=== PATIENT | male | born 1935 | race Caucasian/White ===

== ENCOUNTER 2022-06-25 09:08 | Emergency (ER) | payer MEDICARE, OTHER ==
--- NOTE | 2022-06-25 09:52 | XRAY Report ---
PROCEDURE: Chest 2 View X-Ray INDICATIONS: cough TECHNIQUE: 2 view(s) of the chest. COMPARISON: None. FINDINGS: Surgical changes and devices: Dual-lead cardiac pacer is unremarkable. Lungs and pleura: Lung volumes are low. There is mild atelectasis at the bilateral lung bases. No fo flavia airspace opacities. No pleural effusion or pneumothorax. Mediastinum: Mediastinal contours are normal. Heart size is normal. Bones and chest wall: No suspicious bony abnormalities. Soft tissues appear unremarkable. IMPRESSION: Low lung volumes and basilar atelectasis. Reviewed by: Angie Sheikh MD on 06/25/2022 9:51 AM PDT Approved by: Angie Sheikh MD on 06/25/2022 9:51 AM PDT Station ID: [id number]
[2022-06-25 11:10] VITALS: BP 136/93
--- NOTE | 2022-06-25 12:15 | ED Physician Documentation ---
PD HPI URI - Stated complaint Stated Complaint: COUGH - Chief complaint Chief Complaint: Resp - History obtained from History obtained from: Patient - History of Present Illness Timing - onset: How many days ago (7) Timing duration: Days (7) Timing details: Gradual onset Pain level max: 1 Pain level now: 1 Associated symptoms: Nasal congestion, Rhinorrhea, Productive cough. No: Fever, Chills, Sinus pain, Chest pain, Dyspnea, NVD Contributing factors: Travel Improves by: Rest Worsened by: Activity, Breathing - Additional information Additional information: Patient is an 86-year-old male who has been coughing for the past 7 days. Increasing cough last night and today. No fevers. No chills. Has had nasal congestion and rhinorrhea. The cough can be dry, but is occasionally productive of green sputum. No lung history. He has had his COVID vaccinations. Recently traveled to [place]. Review of Systems Constitutional: denies: Fever, Chills GI: denies: Vomiting, Constipation, Diarrhea Skin: denies: Rash Musculoskeletal: denies: Neck pain Neurologic: denies: Headache PD PAST MEDICAL HISTORY - Past Medical History Past Medical History: Yes Cardiovascular: Hypertension - Present Medications Home Medications: Ambulatory Orders Medication Instructions Recorded Confirmed Benzonatate [Tessalon] 200 mg PO TID PRN #30 cap 06/25/22 - Allergies Allergies/Adverse Reactions: Allergies Allergy/AdvReac Type Severity Reaction Status Date / Time No Known Drug Allergies Allergy Verified 06/25/22 09:18 - Living Situation Living Situation: reports: With family Living Arrangement: reports: At home - Social History Does the pt smoke?: No PD ED PE NORMAL - Vitals Vital signs reviewed: Yes - General General: Alert and oriented X 3, No acute distress - HEENT HEENT: PERRL, Ears normal, Moist mucous membranes, Pharynx benign - Neck Neck: Supple, no meningeal sign - Cardiac Cardiac: RRR - Respiratory Respiratory: No respiratory distress, Other (Mild rhonchi bilaterally that clear with coughing) - Abdomen Abdomen: Soft, Non tender, Non distended - Derm Derm: Warm and dry - Extremities Extremities: No edema - Neuro Neuro: Alert and oriented X 3 - Psych Psych: Normal mood, Normal affect Results - Vitals Vitals: Vital Signs - 24 hr 06/25/22 06/25/22 09:14 11:09 Temperature 36.2 C L Heart Rate 66 58 L Respiratory 17 22 Rate Blood Pressure 148/84 H 136/93 H O2 Saturation 93 92 Oxygen O2 Source Room air - Labs Labs: Laboratory Tests 06/25/22 09:20 SARS-CoV-2 (PCR) DETECTED A - Rads (name of study) Chest x-ray Radiology: Final report received, EMP read contemporaneously, See rad report PD MEDICAL DECISION MAKING - ED course Complexity details: reviewed results, re-evaluated patient, considered differential, d/w patient, d/w family ED course: 86-year-old male, well-appearing, nontoxic. Afebrile. No hypoxia. No respiratory distress. Chest x-ray does not show any acute pneumonia. COVID test is positive. We will continue supportive care at home and have him follow- up with his PCP for further care. Patient is not a candidate for antiviral medication as his length of illness is greater than 5 days. Patient counseled regarding signs and symptoms for which I believe and urgent re-evaluation would be necessary. Patient with good understanding of and agreement to plan and is comfortable going home at this time This document was made in part using voice recognition software. While efforts are made to proofread this document, sound alike and grammatical errors may occur. Departure - Departure Disposition: 01 Home, Self Care Clinical Impression: COVID Condition: Good Instructions: ED Viral Syndrome Follow-Up: [facility] [place] [Provider Group] [facility] [place] [Provider Group] Prescriptions: Benzonatate [Tessalon] 200 mg PO TID PRN #30 cap PRN Reason: Cough Comments: You have tested positive for COVID today. Please follow-up with your doctor as needed for further care. Return if you worsen. Your chest x-ray does not show any pneumonia. Your prescriptions were sent to [facility] in [place]. Isolation precautions for COVID Day 0 is your first day of symptoms or a positive viral test. Day 1 is the first full day after your symptoms developed or your test specimen was collected. If you have COVID-19 or have symptoms, isolate for at least 5 days. IF YOU: Tested positive for COVID-19 or have symptoms, regardless of vaccination status Stay home for at least 5 days Stay home for 5 days and isolate from others in your home. Wear a well-fitting mask if you must be around others in your home. Do not travel. Ending isolation if you had symptoms End isolation after 5 full days if you are fever-free for 24 hours (without the use of fever-reducing medication) and your symptoms are improving. Ending isolation if you did NOT have symptoms End isolation after at least 5 full days after your positive test. If you got very sick from COVID-19 or have a weakened immune system You should isolate for at least 10 days. Consult your doctor before ending isolation. Take precautions until day 10 Wear a well-fitting mask Wear a well-fitting mask for 10 full days any time you are around others inside your home or in public. Do not go to places where you are unable to wear a mask. Do not travel Do not travel until a full 10 days after your symptoms started or the date your positive test was taken if you had no symptoms. Avoid being around people who are more likely to get very sick from COVID-19.
== END 2022-06-25 12:41 | disposition home or self-care (01) ==
LOC: ED 09:08
DX: U07.1 COVID-19 (principal)
CPT/HCPCS: 99284

== ENCOUNTER 2022-08-31 08:00 | Outpatient (CLI) | payer MEDICARE, OTHER | END 2022-08-31 23:59 | disposition home or self-care (01) | LOC: LAB.S 08:00 | PROVIDERS: ATTEND Emergency Medicine | DX: M79.672 Pain in left foot (principal) | CPT/HCPCS: 82962 ==

== ENCOUNTER 2022-08-31 16:10 | Outpatient (CLI) | payer MEDICARE, OTHER ==
--- NOTE | 2022-08-31 18:41 | XRAY Report ---
PROCEDURE: Foot 3 View LT INDICATIONS: LEFT HEEL PAIN TECHNIQUE: 3 views of the foot were acquired. COMPARISON: None FINDINGS: Bones: No fractures or dislocations. No suspicious bony lesions. Age-appropriate degenerative renteria ges are seen. A plantar calcaneal spur is incidentally noted. Toe alignment abnormalities can be s een. 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 Soft tissues: No tibiotalar joint effusion. Achilles tendon appears normal. Calcification can be s een of the distal arteries, which is commonly observed in patients with long-standing diabetes. Pleas e correlate with known patient history. IMPRESSION: A plantar calcaneal spur is seen. No additional significant abnormality can be seen involving the li l. Prior postoperative change can be seen with amputation of the distal first and second toes. If there is strong clinical concern for developing osteomyelitis in this patient with this given hist ory, then please consider a dedicated MRI (without and with contrast) for further evaluation (assumin g that there is no contraindication). Reviewed by: Juancho Anand MD on 08/31/2022 5:39 PM [facility] Approved by: Juancho Anand MD on 08/31/2022 5:39 PM [facility] Station ID: [id number]
== END 2022-08-31 16:11 | disposition home or self-care (01) ==
LOC: DI.S 16:10
PROVIDERS: ATTEND Emergency Medicine
DX: M77.32 Calcaneal spur, left foot (principal); Z89.412 Acquired absence of left great toe; Z89.422 Acquired absence of other left toe(s)

== ENCOUNTER 2022-10-18 13:18 | Outpatient (CLI) | payer MEDICARE, OTHER ==
--- NOTE | 2022-10-18 20:01 | XRAY Report ---
PROCEDURE: Chest 2 View X-Ray INDICATIONS: ACUTE COUGH TECHNIQUE: 2 views of the chest were acquired. COMPARISON: Chest radiograph 06/25/2022 FINDINGS: Surgical changes and devices: Left chest pacemaker. Lungs and pleura: Elevation of the right hemidiaphragm likely present. Small right pleural effusion d emonstrated. Mild bibasilar opacities present. No pneumothorax. Mediastinum: Cardiac silhouette is at the upper limits of normal in size. Mediastinal and hilar conto urs are similar to before. Bones and chest wall: No suspicious bony abnormalities. Soft tissues appear unremarkable. IMPRESSION: 1. Small nonspecific right pleural effusion. 2. Mild bibasilar opacities are present, nonspecific. These could represent atelectasis but aspiratio n, pneumonia, or edema are difficult to exclude. Reviewed by: Aldair Zuluaga MD on 10/18/2022 7:59 PM PST Approved by: Aldair Zuluaga MD on 10/18/2022 7:59 PM PST Station ID: [id number]
== END 2022-10-18 13:19 | disposition home or self-care (01) ==
LOC: DI.S 13:18
PROVIDERS: ATTEND Registered Nurse
DX: J90 Pleural effusion, not elsewhere classified (principal); R91.8 Other nonspecific abnormal finding of lung field

== ENCOUNTER 2022-10-24 08:00 | Outpatient (CLI) | payer MEDICARE, OTHER ==
--- NOTE | 2022-10-25 10:44 | XRAY Report ---
PROCEDURE: Chest 2 View X-Ray INDICATIONS: ACUTE COUGH TECHNIQUE: 2 views of the chest were acquired. COMPARISON: 10/18/2022 and 06/25/2022 FINDINGS: Surgical changes and devices: Left chest wall pacemaker leads are in the region of right atrium and r ight ventricle. Lungs and pleura: No pleural effusions or pneumothorax. Lungs are clear. Mild elevation of right h emidiaphragm is again seen unchanged from prior study. Mediastinum: Mediastinal contours are normal. Heart size is enlarged. Bones and chest wall: No suspicious bony abnormalities. Soft tissues appear unremarkable. IMPRESSION: No acute cardiopulmonary pathology. Reviewed by: Tono Wilkes MD on 10/25/2022 10:43 AM [facility] Approved by: Tono Wilkes MD on 10/25/2022 10:43 AM [facility] Station ID: [id number]
== END 2022-10-24 23:59 | disposition home or self-care (01) ==
LOC: DI.S 08:00
PROVIDERS: ATTEND Registered Nurse
DX: R05.1 Acute cough (principal)

== ENCOUNTER 2022-12-23 12:37 | Outpatient (CLI) | payer MEDICARE, OTHER ==
--- NOTE | 2022-12-23 16:37 | Ultrasound Report ---
PROCEDURE: Ankle Brachial Index INDICATIONS: INCREASED CAPILLARY FILLING TIME TECHNIQUE: Ankle-brachial indices were obtained bilaterally and recorded. COMPARISONS: None. FINDINGS: Right ankle brachial index (MEREDITH): 1.0 Left ankle brachial index (MEREDITH): 0.9 Healing potential: Ankle pressures >55 mm Hg in non-diabetics and >80 mm Hg in diabetics are likely to achieve primary h ealing of ischemic foot ulcers. Toe pressures >30 mm Hg are likely to achieve primary healing of ischemic foot ulcers, toe or transme tatarsal amputations. IMPRESSION: Normal ankle-brachial indices bilaterally. Reviewed by: Leonel Villalpando MD on 12/23/2022 4:36 PM PST Approved by: Leonel Villalpando MD on 12/23/2022 4:36 PM PST Station ID: [id number]
== END 2022-12-23 12:38 | disposition home or self-care (01) ==
LOC: DI 12:37
PROVIDERS: ATTEND Nurse Practitioner Family
DX: I87.2 Venous insufficiency (chronic) (peripheral) (principal)
CPT/HCPCS: 93922

== ENCOUNTER 2023-01-15 05:34 | Outpatient (CLI) | payer MEDICARE, OTHER | END 2023-01-15 23:59 | disposition critical access hospital (66) | LOC: EMS 05:34 | PROVIDERS: ATTEND Nurse Practitioner Family | DX: R53.1 Weakness (principal); R05.9 Cough, unspecified; R41.0 Disorientation, unspecified | CPT/HCPCS: A0425; A0429 ==

== ENCOUNTER 2023-01-15 06:00 | Inpatient (IN) | payer MEDICARE, OTHER ==
--- OUTSIDE RECORDS SUMMARY | 2023-01-15 06:09 | EXTERNAL MEDICAL SUMMARY RPT | Continuity of Care Document ---
:1935 Author Organization [facility] Address [address] [place] [address] Phone Care Team Providers Name Role Phone Unavailable Unavailable Unavailable William Lance,Yasmeen, Contreras Unavailable Unavailable Strem[place] Patient Registrar, Amaya Unavailable Unav ailable Del Valle Patient Registrar, Dinora Unavailable Unavai lable Strempel Patient Registrar, Amaya Unavailable Unav ailable Allergies No information. Encounters No information. Functional Status No information. Immunizations No information. Medications date description facility 2022-10-18 00:00 mupirocin Walk-In Clinic [facility] [place] 2022-10-18 00:00 mupirocin Walk-In Clinic [facility] [place] 2022-10-22 00:00 mupirocin Walk-In Clinic [facility] [place] 2022-10-24 00:00 mupirocin Walk-In Clinic [facility] [place] 2022-10-30 00:00 mupirocin Walk-In Clinic [facility] [place] 2022-10-24 00:00 codeine-guaifenesin Walk-In Clinic [facility] [place] 2022-10-18 00:00 doxycycline hyclate Walk-In [facility] [place] 2022-10-18 00:00 doxycycline hyclate Walk-In [facility] [place] 2022-10-18 00:00 doxycycline hyclate Walk[facility]In [facility] [place] 2022-10-18 00:00 doxycycline hyclate Walk[facility]In [facility] [place] 2022-10-24 00:00 doxycycline hyclate Walk[facility]In [facility] [place] 2022-10-18 00:00 acetaminophen-codeine Walk-In Clinic [facility] [place] 2022-10-18 00:00 acetaminophen-codeine [facility] [place] 2022-10-22 00:00 acetaminophen-codeine Walk-In Clinic [facility] [place] 2022-10-24 00:00 acetaminophen-codeine Walk[facility]In [facility] [place] 2022-10-30 00:00 acetaminophen-codeine Walk[facility]In [facility] [place] 2022-10-18 00:00 levothyroxine [facility] [place] 2022-10-18 00:00 levothyroxine [facility] [place] 2022-10-22 00:00 levothyroxine [facility] [place] 2022-10-24 00:00 levothyroxine [facility] [place] 2022-10-30 00:00 levothyroxine [facility] [place] 2022-10-18 00:00 doxycycline hyclate Walk-In [facility] [place] 2022-10-18 00:00 doxycycline hyclate Walk[facility]In [facility] [place] 2022-10-18 00:00 doxycycline hyclate Walk[facility]In [facility] [place] 2022-10-18 00:00 doxycycline hyclate Walk[facility]In [facility] [place] 2022-10-24 00:00 doxycycline hyclate Walk[facility]In [facility] [place] 2022-10-18 00:00 mupirocin [facility] [place] 2022-10-18 00:00 mupirocin [facility] [place] 2022-10-22 00:00 mupirocin [facility] [place] 2022-10-24 00:00 mupirocin [facility] [place] 2022-10-30 00:00 mupirocin [facility] [place] 2022-10-18 00:00 naproxen sodium [facility] [place] 2022-10-18 00:00 naproxen sodium [facility] [place] 2022-10-22 00:00 naproxen sodium [facility] [place] 2022-10-24 00:00 naproxen sodium [facility] [place] 2022-10-30 00:00 naproxen sodium [facility] [place] 2022-10-18 00:00 levothyroxine Walk[facility] [place] 2022-10-18 00:00 levothyroxine [facility] [place] 2022-10-22 00:00 levothyroxine [facility] [place] 2022-10-24 00:00 levothyroxine [facility] [place] 2022-10-30 00:00 levothyroxine [facility] [place] 2022-10-24 00:00 codeine-guaifenesin Walk[facility] [place] 2022-10-18 00:00 methocarbamol Walk[facility] [place] 2022-10-18 00:00 methocarbamol [facility] [place] 2022-10-22 00:00 methocarbamol [facility] [place] 2022-10-24 00:00 methocarbamol [facility] [place] 2022-10-30 00:00 methocarbamol [facility] [place] 2022-10-18 00:00 tamsulosin Walk[facility] [place] 2022-10-18 00:00 tamsulosin [facility] [place] 2022-10-22 00:00 tamsulosin [facility] [place] 2022-10-24 00:00 tamsulosin [facility] [place] 2022-10-30 00:00 tamsulosin [facility] [place] 2022-10-18 00:00 oxybutynin chloride Walk-In Clinic [facility] [place] 2022-10-18 00:00 oxybutynin chloride Walk[facility]In [facility] [place] 2022-10-22 00:00 oxybutynin chloride Walk[facility]In [facility] [place] 2022-10-24 00:00 oxybutynin chloride Walk[facility]In [facility] [place] 2022-10-30 00:00 oxybutynin chloride Walk[facility]In [facility] [place] 2022-10-18 00:00 doxycycline hyclate Walk[facility]In [facility] [place] 2022-10-18 00:00 doxycycline hyclate Walk[facility]In [facility] [place] 2022-10-18 00:00 doxycycline hyclate Walk[facility]In [facility] [place] 2022-10-18 00:00 doxycycline hyclate Walk[facility]In [facility] [place] 2022-10-24 00:00 doxycycline hyclate Walk[facility]In [facility] [place] 2022-10-18 00:00 benzonatate Walk[facility] [place] 2022-10-18 00:00 benzonatate [facility] [place] 2022-10-18 00:00 benzonatate [facility] [place] 2022-10-18 00:00 benzonatate [facility] [place] 2022-10-24 00:00 benzonatate [facility] [place] 2022-10-18 00:00 methocarbamol Walk[facility] [place] 2022-10-18 00:00 methocarbamol [facility] [place] 2022-10-22 00:00 methocarbamol [facility] [place] 2022-10-24 00:00 methocarbamol [facility] [place] 2022-10-30 00:00 methocarbamol [facility] [place] 2022-10-18 00:00 trazodone [facility] [place] 2022-10-18 00:00 trazodone [facility] [place] 2022-10-22 00:00 trazodone [facility] [place] 2022-10-24 00:00 trazodone [facility] [place] 2022-10-30 00:00 trazodone [facility] [place] 2022-10-18 00:00 warfarin Walk[facility] [place] 2022-10-18 00:00 warfarin [facility] [place] 2022-10-22 00:00 warfarin [facility] [place] 2022-10-24 00:00 warfarin [facility] [place] 2022-10-30 00:00 warfarin [facility] [place] 2022-10-18 00:00 benzonatate [facility] [place] 2022-10-18 00:00 benzonatate [facility] [place] 2022-10-18 00:00 benzonatate [facility] [place] 2022-10-18 00:00 benzonatate [facility] [place] 2022-10-24 00:00 benzonatate [facility] [place] 2022-10-18 00:00 levothyroxine Walk[facility] [place] 2022-10-18 00:00 levothyroxine [facility] [place] 2022-10-22 00:00 levothyroxine [facility] [place] 2022-10-24 00:00 levothyroxine [facility] [place] 2022-10-30 00:00 levothyroxine Walk[facility]In [facility] [place] 2022-10-18 00:00 mupirocin Walk[facility] [place] 2022-10-18 00:00 mupirocin [facility] [place] 2022-10-22 00:00 mupirocin [facility] [place] 2022-10-24 00:00 mupirocin [facility] [place] 2022-10-30 00:00 mupirocin [facility] [place] 2022-10-18 00:00 methocarbamol [facility] [place] 2022-10-18 00:00 methocarbamol [facility] [place] 2022-10-22 00:00 methocarbamol Walk[facility] [place] 2022-10-24 00:00 methocarbamol Walk[facility] [place] 2022-10-30 00:00 methocarbamol Walk[facility] [place] 2022-10-18 00:00 metoprolol tartrate Walk[facility]In [facility] [place] 2022-10-18 00:00 metoprolol tartrate Walk[facility]In [facility] [place] 2022-10-22 00:00 metoprolol tartrate Walk[facility] [place] 2022-10-24 00:00 metoprolol tartrate Walk[facility] [place] 2022-10-30 00:00 metoprolol tartrate Walk[facility] [place] 2022-10-18 00:00 acetaminophen-codeine Walk[facility]In [facility] [place] 2022-10-18 00:00 acetaminophen-codeine Walk[facility] [place] 2022-10-22 00:00 acetaminophen-codeine Walk[facility] [place] 2022-10-24 00:00 acetaminophen-codeine Walk[facility] [place] 2022-10-30 00:00 acetaminophen-codeine Walk[facility] [place] 2022-10-18 00:00 atorvastatin [facility] [place] 2022-10-18 00:00 atorvastatin [facility] [place] 2022-10-22 00:00 atorvastatin [facility] [place] 2022-10-24 00:00 atorvastatin [facility] [place] 2022-10-30 00:00 atorvastatin [facility] [place] 2022-10-18 00:00 benzonatate Walk[facility] [place] 2022-10-18 00:00 benzonatate [facility] [place] 2022-10-18 00:00 benzonatate [facility] [place] 2022-10-18 00:00 benzonatate [facility] [place] 2022-10-24 00:00 benzonatate [facility] [place] 2022-10-24 00:00 codeine-guaifenesin Walk[facility]In [facility] [place] 2022-10-18 00:00 albuterol sulfate [facility] [place] 2022-10-18 00:00 albuterol sulfate [facility] [place] 2022-10-18 00:00 albuterol sulfate [facility] [place] 2022-10-18 00:00 albuterol sulfate [facility] [place] 2022-10-18 00:00 albuterol sulfate [facility] [place] 2022-10-18 00:00 albuterol sulfate [facility] [place] 2022-10-18 00:00 albuterol sulfate [facility] [place] 2022-10-18 00:00 albuterol sulfate [facility] [place] 2022-10-18 00:00 atorvastatin [facility] [place] 2022-10-18 00:00 atorvastatin [facility] [place] 2022-10-22 00:00 atorvastatin [facility] [place] 2022-10-24 00:00 atorvastatin [facility] [place] 2022-10-30 00:00 atorvastatin [facility] [place] 2022-10-18 00:00 oxybutynin chloride Walk[facility]In [facility] [place] 2022-10-18 00:00 oxybutynin chloride Walk[facility] [place] 2022-10-22 00:00 oxybutynin chloride Walk[facility] [place] 2022-10-24 00:00 oxybutynin chloride Walk[facility] [place] 2022-10-30 00:00 oxybutynin chloride [facility] [place] 2022-10-18 00:00 warfarin [facility] [place] 2022-10-18 00:00 warfarin [facility] [place] 2022-10-22 00:00 warfarin [facility] [place] 2022-10-24 00:00 warfarin [facility] [place] 2022-10-30 00:00 warfarin [facility] [place] 2022-10-18 00:00 trazodone [facility] [place] 2022-10-18 00:00 trazodone [facility] [place] 2022-10-22 00:00 trazodone [facility] [place] 2022-10-24 00:00 trazodone [facility] [place] 2022-10-30 00:00 trazodone [facility] [place] 2022-10-18 00:00 oxybutynin chloride Walk[facility] [place] 2022-10-18 00:00 oxybutynin chloride Walk[facility] [place] 2022-10-22 00:00 oxybutynin chloride Walk[facility] [place] 2022-10-24 00:00 oxybutynin chloride Walk[facility] [place] 2022-10-30 00:00 oxybutynin chloride Walk[facility] [place] 2022-10-18 00:00 tamsulosin Walk[facility]In [facility] [place] 2022-10-18 00:00 tamsulosin Walk[facility]In [facility] [place] 2022-10-22 00:00 tamsulosin Walk[facility]In [facility] [place] 2022-10-24 00:00 tamsulosin Walk[facility]In [facility] [place] 2022-10-30 00:00 tamsulosin Walk[facility]In [facility] [place] 2022-10-18 00:00 metoprolol tartrate Walk[facility] [place] 2022-10-18 00:00 metoprolol tartrate Walk[facility] [place] 2022-10-22 00:00 metoprolol tartrate Walk[facility] [place] 2022-10-24 00:00 metoprolol tartrate Walk[facility] [place] 2022-10-30 00:00 metoprolol tartrate Walk[facility] [place] 2022-10-18 00:00 trazodone Walk[facility]In [facility] [place] 2022-10-18 00:00 trazodone Walk[facility]In [facility] [place] 2022-10-22 00:00 trazodone Walk[facility]In [facility] [place] 2022-10-24 00:00 trazodone Walk[facility]In [facility] [place] 2022-10-30 00:00 trazodone [facility] [place] 2022-10-18 00:00 atorvastatin [facility] [place] 2022-10-18 00:00 atorvastatin [facility] [place] 2022-10-22 00:00 atorvastatin [facility] [place] 2022-10-24 00:00 atorvastatin [facility] [place] 2022-10-30 00:00 atorvastatin [facility] [place] 2022-10-18 00:00 atorvastatin [facility] [place] 2022-10-18 00:00 atorvastatin [facility] [place] 2022-10-22 00:00 atorvastatin [facility] [place] 2022-10-24 00:00 atorvastatin [facility] [place] 2022-10-30 00:00 atorvastatin [facility] [place] 2022-10-18 00:00 tamsulosin [facility] [place] 2022-10-18 00:00 tamsulosin [facility] [place] 2022-10-22 00:00 tamsulosin [facility] [place] 2022-10-24 00:00 tamsulosin [facility] [place] 2022-10-30 00:00 tamsulosin [facility] [place] 2022-10-18 00:00 acetaminophen-codeine [facility] [place] 2022-10-18 00:00 acetaminophen-codeine [facility] [place] 2022-10-22 00:00 acetaminophen-codeine [facility] [place] 2022-10-24 00:00 acetaminophen-codeine [facility] [place] 2022-10-30 00:00 acetaminophen-codeine [facility] [place] 2022-10-18 00:00 naproxen sodium [facility] [place] 2022-10-18 00:00 naproxen sodium [facility] [place] 2022-10-22 00:00 naproxen sodium [facility] [place] 2022-10-24 00:00 naproxen sodium [facility] [place] 2022-10-30 00:00 naproxen sodium [facility] [place] 2022-10-18 00:00 naproxen sodium [facility] [place] 2022-10-18 00:00 naproxen sodium [facility] [place] 2022-10-22 00:00 naproxen sodium [facility] [place] 2022-10-24 00:00 naproxen sodium [facility] [place] 2022-10-30 00:00 naproxen sodium [facility] [place] 2022-10-18 00:00 albuterol sulfate [facility] [place] 2022-10-18 00:00 albuterol sulfate [facility] [place] 2022-10-18 00:00 albuterol sulfate [facility] [place] 2022-10-18 00:00 albuterol sulfate [facility] [place] 2022-10-18 00:00 benzonatate [facility] [place] 2022-10-18 00:00 benzonatate [facility] [place] 2022-10-18 00:00 benzonatate [facility] [place] 2022-10-18 00:00 benzonatate [facility] [place] 2022-10-24 00:00 benzonatate [facility] [place] 2022-10-18 00:00 naproxen sodium [facility] [place] 2022-10-18 00:00 naproxen sodium [facility] [place] 2022-10-22 00:00 naproxen sodium [facility] [place] 2022-10-24 00:00 naproxen sodium [facility] [place] 2022-10-30 00:00 naproxen sodium [facility] [place] 2022-10-18 00:00 doxycycline hyclate Walk[facility]In [facility] [place] 2022-10-18 00:00 doxycycline hyclate Walk[facility]In [facility] [place] 2022-10-18 00:00 doxycycline hyclate Walk[facility] [place] 2022-10-18 00:00 doxycycline hyclate Walk[facility] [place] 2022-10-24 00:00 doxycycline hyclate Walk[facility] [place] 2022-10-18 00:00 albuterol sulfate [facility] [place] 2022-10-18 00:00 albuterol sulfate [facility] [place] 2022-10-18 00:00 albuterol sulfate [facility] [place] 2022-10-18 00:00 albuterol sulfate [facility] [place] 2022-10-18 00:00 methocarbamol [facility] [place] 2022-10-18 00:00 methocarbamol [facility] [place] 2022-10-22 00:00 methocarbamol [facility] [place] 2022-10-24 00:00 methocarbamol [facility] [place] 2022-10-30 00:00 methocarbamol [facility] [place] 2022-10-18 00:00 metoprolol tartrate Walk[facility] [place] 2022-10-18 00:00 metoprolol tartrate Walk[facility] [place] 2022-10-22 00:00 metoprolol tartrate [facility] [place] 2022-10-24 00:00 metoprolol tartrate [facility] [place] 2022-10-30 00:00 metoprolol tartrate Walk[facility] [facility] [place] 2022-10-18 00:00 [facility]farin [facility] [place] 2022-10-18 00:00 warfarin [facility] [place] 2022-10-22 00:00 warfarin [facility] [place] 2022-10-24 00:00 warfarin [facility] [place] 2022-10-30 00:00 warfarin [facility] [place] 2022-10-18 00:00 warfarin [facility] [place] 2022-10-18 00:00 warfarin [facility] [place] 2022-10-22 00:00 warfarin [facility] [place] 2022-10-24 00:00 warfarin [facility] [place] 2022-10-30 00:00 warfarin [facility] [place] 2022-10-18 00:00 trazodone [facility] [place] 2022-10-18 00:00 trazodone [facility] [place] 2022-10-22 00:00 trazodone [facility] [place] 2022-10-24 00:00 trazodone [facility] [place] 2022-10-30 00:00 trazodone [facility] [place] 2022-10-18 00:00 oxybutynin chloride [facility] [place] 2022-10-18 00:00 oxybutynin chloride [facility] [place] 2022-10-22 00:00 oxybutynin chloride [facility] [place] 2022-10-24 00:00 oxybutynin chloride [facility] [place] 2022-10-30 00:00 oxybutynin chloride [facility] [place] 2022-10-18 00:00 tamsulosin [facility] [place] 2022-10-18 00:00 tamsulosin [facility] [place] 2022-10-22 00:00 tamsulosin [facility] [place] 2022-10-24 00:00 tamsulosin [facility] [place] 2022-10-30 00:00 tamsulosin [facility] [place] 2022-10-18 00:00 metoprolol tartrate [facility] [place] 2022-10-18 00:00 metoprolol tartrate [facility] [place] 2022-10-22 00:00 metoprolol tartrate [facility] [place] 2022-10-24 00:00 metoprolol tartrate [facility] [place] 2022-10-30 00:00 metoprolol tartrate [facility] [place] 2022-10-18 00:00 mupirocin [facility] [place] 2022-10-18 00:00 mupirocin [facility] [place] 2022-10-22 00:00 mupirocin [facility] [place] 2022-10-24 00:00 mupirocin [facility] [place] 2022-10-30 00:00 mupirocin [facility] [place] 2022-10-18 00:00 levothyroxine [facility] [place] 2022-10-18 00:00 levothyroxine [facility] [place] 2022-10-22 00:00 levothyroxine [facility] [place] 2022-10-24 00:00 levothyroxine [facility] [place] 2022-10-30 00:00 levothyroxine [facility] [place] 2022-10-18 00:00 acetaminophen-codeine [facility] [place] 2022-10-18 00:00 acetaminophen-codeine [facility] [place] 2022-10-22 00:00 [facility] [place] 2022-10-24 00:00 [facility]amin[facility]codeine [facility] [place] 2022-10-30 00:00 acetaminophen-codeine [facility] [place] 2022-10-24 00:00 codeine-guaifenesin [facility] [place] Problems date description facility 2022-10-18 00:00 Community acquired pneumonia [facility] 2022-10-18 00:00 Community acquired pneumonia [facility] 2022-10-18 00:00 Community acquired pneumonia [facility] 2022-10-18 00:00 Community acquired pneumonia [facility] 2022-10-18 00:00 Pneumonia, organism unspecified [facility] 2022-10-18 00:00 Pneumonia, organism unspecified [facility] 2022-10-18 00:00 Pneumonia, organism unspecified [facility] 2022-10-18 00:00 Pneumonia, organism unspecified [facility] 2022-10-18 00:00 Cough [facility] 2022-10-18 00:00 Cough [facility] 2022-10-18 00:00 Cough [facility] 2022-10-18 00:00 Cough [facility] 2022-10-18 00:00 Pneumonia, unspecified organism [facility] 2022-10-18 00:00 Pneumonia, unspecified organism [facility] 2022-10-18 00:00 Pneumonia, unspecified organism [facility] 2022-10-18 00:00 Pneumonia, unspecified organism [facility] 2022-10-18 00:00 Acute cough [facility] 2022-10-18 00:00 Acute cough [facility] 2022-10-18 00:00 Acute cough [facility] 2022-10-18 00:00 Acute cough [facility] 2022-10-18 00:00 Cardiac pacemaker in situ [facility] 2022-10-18 00:00 Cardiac pacemaker in situ [facility] 2022-10-18 00:00 Cardiac pacemaker in situ [facility] 2022-10-18 00:00 Presence of cardiac pacemaker [facility] 2022-10-18 00:00 Presence of cardiac pacemaker [facility] 2022-10-18 00:00 Presence of cardiac pacemaker [facility] Procedures date description facility 2022-10-18 00:00 Visit Code Hold [facility] [place] 2022-10-18 00:00 Visit Code Hold [facility] [place] 2022-10-18 00:00 Visit Code Hold [facility] [place] 2022-10-18 00:00 Visit Code Hold [facility] [place] 2022-10-24 00:00 Visit Code Hold [facility] [place] Results/Labs No information. Social History date description facility 2022-10-24 00:00 Never smoker [facility] [place] Vital Signs date measurement value units 2022-10-18 00:00 BMI 35.46 kg/m2 2022-10-18 00:00 BP_diastolic 79 mmHg 2022-10-18 00:00 BP_systolic 140 mmHg 2022-10-18 00:00 heart_rate 64 /min 2022-10-18 00:00 height_metric 185.42 cm 2022-10-18 00:00 height_standard 73 in 2022-10-18 00:00 respiration_rate 16 /min 2022-10-18 00:00 temperature_metric 36.33 C 2022-10-18 00:00 temperature_standard 97.4 F 2022-10-18 00:00 weight_metric 121.47 kg 2022-10-18 00:00 weight_standard 267.8 lb 2022-10-24 00:00 BMI 35.35 kg/m2 2022-10-24 00:00 BP_diastolic 77 mmHg 2022-10-24 00:00 BP_systolic 141 mmHg 2022-10-24 00:00 heart_rate 62 /min 2022-10-24 00:00 height_metric 185.42 cm 2022-10-24 00:00 height_standard 73 in 2022-10-24 00:00 respiration_rate 18 /min 2022-10-24 00:00 weight_metric 121.11 kg 2022-10-24 00:00 weight_standard 267 lb
[2023-01-15] MEDS ORDERED: ACETAMINOPHEN 325 MG TABLET PO STA (06:17)
[2023-01-15 06:26] LABS: BASOPHILS % (AUTO) 0.2 %; EOSINOPHILS % (AUTO) 0.1 %; HCT - HEMATOCRIT 43.2 % (42.0-52.0); HGB - HEMOGLOBIN 14.3 g/dL (14.0-18.0); LYMPHOCYTES # (AUTO) 0.7 10^3/uL (1.5-3.5); LYMPHOCYTES % (AUTO) 4.6 %; MEAN CORPUSCULAR HEMOGLOBIN 34.1 pg (27.0-31.0); MEAN CORPUSCULAR HGB CONC 33.1 g/dL (32.0-36.0); MEAN CORPUSCULAR VOLUME 103.1 fL (80.0-94.0); MONOCYTES # (AUTO) 1.4 10^3/uL (0.0-1.0); NEUTROPHILS % (AUTO) 84.6 %; PLT - PLATELET COUNT 166 10^3/uL (130-450); RED BLOOD COUNT 4.19 10^6/uL (4.70-6.10); WHITE BLOOD COUNT 14.2 x10^3/uL (4.8-10.8)
[2023-01-15 06:38] LABS: ALBUMIN 3.6 g/dL (3.2-5.5); BILIRUBIN,TOTAL 2.3 mg/dL (0.2-1.0); CALCIUM 8.9 mg/dL (8.5-10.3); POTASSIUM 3.9 mmol/L (3.5-5.0); TOTAL PROTEIN 7.2 g/dL (6.7-8.2)
[2023-01-15 06:50] LABS: INR 2.4 (0.8-1.2); PT - PROTHROMBIN TIME 25.7 secs (9.9-12.6)
--- NOTE | 2023-01-15 07:10 | ED Physician Documentation ---
History of Present Illness - Stated complaint Stated Complaint: WEAKNESS - Chief complaint Chief Complaint: Resp - History obtained from History obtained from: Patient, EMS - Additonal information Additional information: 87-year-old gentleman with history of DVT on warfarin, bowel resection for diverticulitis, pacemaker, and pneumonia presents feeling progressively weak for the last 4 days. 4 days ago he was coming back from [place] and felt disoriented, now has a productive cough and chills with shortness of breath and was very weak overnight kind of crumpling out of bed and laying on the floor. He is 100% sure he did not hit his head. He has no pain anywhere. PD PAST MEDICAL HISTORY - Past Medical History Past Medical History: Yes Cardiovascular: Hypertension, High cholesterol, Deep vein thrombosis Respiratory: Pneumonia Endocrine/Autoimmune: HyPOthyroidism : Other Other Past Medical History: Overreactive Bladder - Past Surgical History Past Surgical History: Yes Cardiovascular: Pacemaker - Present Medications Home Medications: Ambulatory Orders Medication Instructions Recorded Confirmed Atorvastatin Calcium 40 mg PO DAILY 01/15/23 01/15/23 Levothyroxine [Synthroid] 25 mcg PO QDAC 01/15/23 01/15/23 Metoprolol Succinate [Toprol Xl] 25 mg PO DAILY 01/15/23 01/15/23 Oxybutynin Chloride [Ditropan Xl] 5 mg PO DAILY 01/15/23 01/15/23 Warfarin [Coumadin] 2.5 mg PO DAILY 01/15/23 01/15/23 traZODone [Desyrel] 50 mg PO HS 01/15/23 01/15/23 - Allergies Allergies/Adverse Reactions: Allergies Allergy/AdvReac Type Severity Reaction Status Date / Time No Known Drug Allergies Allergy Verified 01/15/23 06:10 - Social History Does the pt smoke?: No Smoking Status: Never smoker Does the pt drink ETOH?: No Does the pt have substance abuse?: No - Immunizations Immunizations are current?: Yes - POLST Patient has POLST: No PD ED PE NORMAL - Vitals Vital signs reviewed: Yes - General General: Alert and oriented X 3, Other (He becomes visibly dyspneic with talking with borderline pulse ox is into the high 80s) - HEENT HEENT: PERRL, EOMI - Neck Neck: Supple, no meningeal sign, No bony TTP - Cardiac Cardiac: RRR, No murmur - Respiratory Respiratory: Other (Mild rhonchi at both bases. Mildly labored especially with talking.) - Abdomen Abdomen: Normal bowel sounds, Soft, Non tender, Other (Well-healed laparotomy scar) - Derm Derm: Normal color, Warm and dry - Extremities Extremities: No edema, No calf tenderness / cord - Neuro Neuro: Alert and oriented X 3, Normal speech Results - Vitals Vitals: Vital Signs - 24 hr 01/15/23 01/15/23 01/15/23 06:10 06:15 09:27 Temperature 38.4 C H 37.7 C Heart Rate 75 74 65 Respiratory 25 H 23 20 Rate Blood Pressure 121/67 121/67 118/61 O2 Saturation 94 95 96 If not protocol 2 : Oxygen Flow, liters/minute 01/15/23 10:20 Temperature Heart Rate 83 Respiratory 21 Rate Blood Pressure 130/73 O2 Saturation 97 If not protocol : Oxygen Flow, liters/minute Oxygen O2 Source Room air - EKG (time done) 0637 EKG releavant findings:: EKG personally interpreted by author of this note. Relevant findings are: Rate: Rate (enter#) (75) Rhythm: NSR Intervals: Prolonged SC QRS: Normal Ischemia: Non specific changes - Labs Labs: Laboratory Tests 01/15/23 01/15/23 01/15/23 06:17 06:17 06:17 WBC 14.2 H RBC 4.19 L Hgb 14.3 Hct 43.2 MCV 103.1 H MCH 34.1 H MCHC 33.1 RDW 13.0 Plt Count 166 MPV 9.0 Neut # (Auto) 12.0 H Lymph # (Auto) 0.7 L Mower # (Auto) 1.4 H Eos # (Auto) 0.0 Baso # (Auto) 0.0 Absolute Nucleated RBC 0.00 Nucleated RBC % 0.0 PT INR Sodium 137 Potassium 3.9 Chloride 102 Carbon Dioxide 26 Anion Gap 9.0 BUN 17 Creatinine 1.0 Estimated GFR (MDRD) 71 L Glucose 117 H Lactic Acid 1.0 Calcium 8.9 Total Bilirubin 2.3 H AST 18 ALT 10 Alkaline Phosphatase 51 B-Natriuretic Peptide Total Protein 7.2 Albumin 3.6 Globulin 3.6 Albumin/Globulin Ratio 1.0 Lipase 28 Urine Color Urine Clarity Urine pH Ur Specific [place] Urine Protein Urine Glucose (UA) Urine Ketones Urine Occult Blood Urine Nitrite Urine Bilirubin Urine Urobilinogen Ur Leukocyte Esterase Urine RBC Urine WBC Urine WBC Clumps Ur Squamous Epith Cells Urine Bacteria Ur Microscopic Review Urine Culture Comments Nasal Adenovirus (PCR) Nasal B. parapertussis DNA (PCR) Nasal Coronavir 229E PCR Nasal Coronavir HKU1 PCR Nasal Coronavir NL63 PCR Nasal Coronavir OC43 PCR Nasal Enterovir/Rhinovir PCR Nasal Influenza B PCR Nasal Influenza A PCR Nasal Parainfluen 1 PCR Nasal Parainfluen 2 PCR Nasal Parainfluen 3 PCR Nasal Parainfluen 4 PCR Nasal RSV (PCR) Nasal B.pertussis DNA PCR Nasal C.pneumoniae (PCR) Angel Human Metapneumo PCR Nasal M.pneumoniae (PCR) Nasal SARS-CoV-2 (PCR) 01/15/23 01/15/23 01/15/23 06:17 06:33 06:40 WBC RBC Hgb Hct MCV MCH MCHC RDW Plt Count MPV Neut # (Auto) Lymph # (Auto) Mower # (Auto) Eos # (Auto) Baso # (Auto) Absolute Nucleated RBC Nucleated RBC % PT 25.7 H INR 2.4 H Sodium Potassium Chloride Carbon Dioxide Anion Gap BUN Creatinine Estimated GFR (MDRD) Glucose Lactic Acid Calcium Total Bilirubin AST ALT Alkaline Phosphatase B-Natriuretic Peptide 121 H Total Protein Albumin Globulin Albumin/Globulin Ratio Lipase Urine Color Urine Clarity Urine pH Ur Specific [place] Urine Protein Urine Glucose (UA) Urine Ketones Urine Occult Blood Urine Nitrite Urine Bilirubin Urine Urobilinogen Ur Leukocyte Esterase Urine RBC Urine WBC Urine WBC Clumps Ur Squamous Epith Cells Urine Bacteria Ur Microscopic Review Urine Culture Comments Nasal Adenovirus (PCR) NOT DETECTED Nasal B. parapertussis DNA (PCR) NOT DETECTED Nasal Coronavir 229E PCR NOT DETECTED Nasal Coronavir HKU1 PCR NOT DETECTED Nasal Coronavir NL63 PCR NOT DETECTED Nasal Coronavir OC43 PCR NOT DETECTED Nasal Enterovir/Rhinovir PCR NOT DETECTED Nasal Influenza B PCR NOT DETECTED Nasal Influenza A PCR NOT DETECTED Nasal Parainfluen 1 PCR NOT DETECTED Nasal Parainfluen 2 PCR NOT DETECTED Nasal Parainfluen 3 PCR NOT DETECTED Nasal Parainfluen 4 PCR NOT DETECTED Nasal RSV (PCR) NOT DETECTED Nasal B.pertussis DNA PCR NOT DETECTED Nasal C.pneumoniae (PCR) NOT DETECTED Angel Human Metapneumo PCR NOT DETECTED Nasal M.pneumoniae (PCR) NOT DETECTED Nasal SARS-CoV-2 (PCR) NOT DETECTED 01/15/23 08:20 WBC RBC Hgb Hct MCV MCH MCHC RDW Plt Count MPV Neut # (Auto) Lymph # (Auto) Mower # (Auto) Eos # (Auto) Baso # (Auto) Absolute Nucleated RBC Nucleated RBC % PT INR Sodium Potassium Chloride Carbon Dioxide Anion Gap BUN Creatinine Estimated GFR (MDRD) Glucose Lactic Acid Calcium Total Bilirubin AST ALT Alkaline Phosphatase B-Natriuretic Peptide Total Protein Albumin Globulin Albumin/Globulin Ratio Lipase Urine Color DARK YELLOW Urine Clarity HAZY Urine pH 6.0 Ur Specific [place] 1.020 Urine Protein 30 H Urine Glucose (UA) NEGATIVE Urine Ketones NEGATIVE Urine Occult Blood TRACE-INTA Urine Nitrite POSITIVE H Urine Bilirubin NEGATIVE Urine Urobilinogen 0.2 (NORMAL) Ur Leukocyte Esterase TRACE H Urine RBC 0-5 Urine WBC 11-25 H Urine WBC Clumps PRESENT Ur Squamous Epith Cells NONE SEEN Urine Bacteria Few Ur Microscopic Review INDICATED Urine Culture Comments INDICATED Nasal Adenovirus (PCR) Nasal B. parapertussis DNA (PCR) Nasal Coronavir 229E PCR Nasal Coronavir HKU1 PCR Nasal Coronavir NL63 PCR Nasal Coronavir OC43 PCR Nasal Enterovir/Rhinovir PCR Nasal Influenza B PCR Nasal Influenza A PCR Nasal Parainfluen 1 PCR Nasal Parainfluen 2 PCR Nasal Parainfluen 3 PCR Nasal Parainfluen 4 PCR Nasal RSV (PCR) Nasal B.pertussis DNA PCR Nasal C.pneumoniae (PCR) Angel Human Metapneumo PCR Nasal M.pneumoniae (PCR) Nasal SARS-CoV-2 (PCR) - Rads (name of study) Single view chest x-ray demonstrates low inspiration and bibasilar interstitial disease Relevant Findings:: Final report received, EMP independent interpretation of test CTA Chest Relevant Findings:: Final report received, EMP independent interpretation of test PD Medical Decision Making - ED course ED course: This is an 87-year-old gentleman who presents with concern for sepsis being febrile and tachypneic. He is a white count of 14,000. He is febrile. He is on warfarin and therapeutic with INR of 2.4.. There is no evidence of pneumonia on x-ray and this was followed by CTA mostly to look for pneumonia which was negative for same. My pretest probability for PE was very low and it was a suboptimal study, but again it was mostly looking for an occult pneumonia. This was not present. 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 Subsequently with a positive urinalysis a retroperitoneal ultrasound was done and potentially had early or mild hydronephrosis on the left and this was followed by a CT showing no evidence of hydronephrosis. Given the sepsis and UTI he was cultured up and given Rocephin IV and I spoke with Dr. Pittman for admission at 10:35 AM. Departure - Departure Disposition: 66 [facility] DC/Xfer Clinical Impression: UTI (urinary tract infection) Qualifiers: Urinary tract infection type: acute pyelonephritis Qualified Code(s): N10 - Acute pyelonephritis Sepsis Qualifiers: Sepsis type: sepsis due to unspecified organism Sepsis acute organ dysfunction status: without acute organ dysfunction Qualified Code(s): A41.9 - Sepsis, unspecified organism Condition: Serious
[2023-01-15] MEDS ORDERED: iohexoL-300 100 ML VIAL ONE ×2 (07:16→07:45)
[2023-01-15 07:37] LABS: B. PARAPERTUSSIS- RESP PCR PAN NOT DETECTED; B. PERTUSSIS- RESP PCR PANEL NOT DETECTED; C. PNEUMONIAE- RESP PCR PANEL NOT DETECTED; CORONAVIRUS 229E-RESP PCR NOT DETECTED; CORONAVIRUS HKU1-RESP PCR NOT DETECTED; CORONAVIRUS NL63-RESP PCR NOT DETECTED; CORONAVIRUS OC43-RESP PCR NOT DETECTED; HUMAN METAPNEUMOVIRUS NOT DETECTED; INFLUENZA A- RESP PCR PANEL NOT DETECTED; INFLUENZA B - RESP PCR PANEL NOT DETECTED; M. PNEUMONIAE- RESP PCR PANEL NOT DETECTED; PARAINFLUENZA VIRUS 1 NOT DETECTED; PARAINFLUENZA VIRUS 2 NOT DETECTED; PARAINFLUENZA VIRUS 3 NOT DETECTED; PARAINFLUENZA VIRUS 4 NOT DETECTED; RHINOVIRUS/ENTEROVIRUS NOT DETECTED; RSV- RESP PCR PANEL NOT DETECTED; SARS-CoV-2 -RESP PCR PANEL NOT DETECTED
--- NOTE | 2023-01-15 08:15 | CT Report ---
PROCEDURE: ANGIO CHEST W/WO INDICATIONS: dyspnea, fever CONTRAST: 80ml Omnipaque 300 TECHNIQUE: After the administration of intravenous contrast, 2 mm axial images were acquired from the pulmonary apices to the posterior costophrenic angles during the arterial phase. In addition, 1 mm lung kernel and 5 mm soft tissue kernel reconstructions were performed. 3-dimensional coronal oblique maximum int ensity projection (MIP) reformats, 8 mm axial MIP, and 5 mm coronal and sagittal MPR reformats were t hen performed through the thorax. For radiation dose reduction, the following was used: automated exp osure control, adjustment of mA and/or kV according to patient size. COMPARISON: None FINDINGS: Image quality: Technically suboptimal study secondary to inadequate bolus reaching the pulmonary tree , as well as patient motion artifact. Pulmonary arteries: No large central pulmonary emboli. Peripheral pulmonary emboli are not excluded. Lungs and pleura: Patchy bibasilar atelectasis. Minimal bibasilar pleural thickening. No pleural effu sions or pneumothorax. Central and peripheral airways are patent. Mediastinum: Cardiomegaly. Pacemaker. No pericardial effusion. No mediastinal or hilar adenopathy. T horacic aorta is normal in caliber and enhancement. Esophagus is normal in caliber, without hiatal h ernia. Bones and chest wall: No suspicious bony lesions. Ribs and thoracic spine appear intact throughout. No axillary or supraclavicular adenopathy. The thyroid is normal in size and there are no incident al findings. Left-sided injection with left-sided pacemaker. Extensive venous collaterals present ove rlying the left chest and back, consistent with high-grade stenosis or occlusion of the left subclavi an vein. Left brachiocephalic vein is noted to be patent. Abdomen: Visualized upper abdominal solid organs appear normal in the early arterial phase of enhanc ement. IMPRESSION: 1. Technically suboptimal study. No large central pulmonary emboli identified. Peripheral pulmonary e mboli are not excluded. 2. Patchy bibasilar atelectasis. 3. Suspect high-grade left subclavian stenosis versus occlusion secondary to the presence of a pacema ker. CLINICAL RECOMMENDATION STATEMENTS: In patients <35 years with an ITN detected on CT, MRI, or extrathyroidal ultrasound, the Committee re commends further evaluation with dedicated thyroid ultrasound if the nodule is "e1 cm and has no susp icious imaging features, and if the patient has normal life expectancy. In patients "e35 years with an ITN detected on CT, MRI, or extrathyroidal ultrasound, the Committee r ecommends further evaluation with dedicated thyroid ultrasound if the nodule is "e1.5 cm and has no s uspicious imaging features, and if the patient has normal life expectancy. (ACR, 2014) Reviewed by: Bryce Bella MD on 01/15/2023 8:13 AM PDT Approved by: Bryce Bella MD on 01/15/2023 8:13 AM PDT Station ID: [id number]
--- NOTE | 2023-01-15 08:16 | XRAY Report ---
PROCEDURE: Chest 1 View X-Ray INDICATIONS: fever/cough TECHNIQUE: One view of the chest was acquired. COMPARISON: 10/24/2022 and 10/18/2022. FINDINGS: Surgical changes and devices: Left chest wall pacemaker leads are in the region of right atrium and right ventricle.. Lungs and pleura: No pleural effusions or pneumothorax. Low lung volume with chronic mild elevation of right hemidiaphragm is seen. Bibasilar dependent atelectasis is seen. Underlying small infiltrate cannot be entirely excluded. Mediastinum: Mediastinal contours appear normal. Heart size is mildly enlarged. Bones and chest wall: No suspicious bony lesions. Overlying soft tissues appear unremarkable. IMPRESSION: Low lung volume. Elevation of right hemidiaphragm and bibasilar atelectasis versus small infiltrate. No pleural effusion or pneumothorax. No discrepancies. Reviewed by: Tono Wilkes MD on 01/15/2023 8:14 AM PDT Approved by: Tono Wilkes MD on 01/15/2023 8:14 AM PDT Station ID: [id number]
[2023-01-15 08:28] LABS: BILIRUBIN,URINE NEGATIVE (NEGATIVE); GLUCOSE, URINE (UA) NEGATIVE (NEGATIVE); KETONES,URINE (UA) NEGATIVE (NEGATIVE); LEUKOCYTE ESTERASE, URINE TRACE (NEGATIVE); NITRITE,URINE POSITIVE (NEGATIVE); OCCULT BLOOD,URINE TRACE-INTA (NEGATIVE); PROTEIN,URINE 30 mg/dL (NEGATIVE); UROBILINOGEN,URINE 0.2 (NORMAL) E.U./dL (NORMAL)
[2023-01-15 08:29] LABS: CLARITY,URINE HAZY (CLEAR)
[2023-01-15 08:41] LABS: BACTERIA,URINE Few /HPF (None Seen); RBC,URINE 0-5 /HPF (0-5); SQUAMOUS EPITHELIAL CELL,UR NONE SEEN (<= Few); WBC CLUMPS,URINE PRESENT
[2023-01-15] MEDS ORDERED: cefTRIAXone 1 GM in SODIUM CHLORIDE 0.9% MINIBAG 100 ML IV STA (08:45)
[2023-01-15] MEDS ORDERED: iohexoL-300 100 ML VIAL IVP ONE (09:14)
--- NOTE | 2023-01-15 09:34 | Ultrasound Report ---
PROCEDURE: Retroperitoneal INDICATIONS: UTI, rule out obstruction TECHNIQUE: Real-time scanning was performed of the kidneys and bladder, with image documentation. COMPARISON: None FINDINGS: Kidneys: Kidneys are normal in size. Right kidney measures 11.6 cm long; left kidney measures 9.6 c m long. Right renal cortical thickness is 2.2 cm; left renal cortical thickness is 1.3 cm. Renal co rtical echotexture is normal. Question mild left hydronephrosis. No suspicious solid mass lesions. Bladder: Pre-void bladder volume is 171.5 mL. Patient did not void. Pre-void images demonstrate no i ntraluminal masses or stones. On pre-void images, a unilateral ureteral jet is noted, possibly the l eft, with color Doppler interrogation. (Of note, ureteral jets may not be detectable in up to 25% of cases due to insufficient differences in specific gravity between ureteral and bladder urine). Miscellaneous: No free pelvic fluid. IMPRESSION: 1. Normal-sized kidneys. 2. Question mild left hydronephrosis. Comment: It is noted that the patient is scheduled to undergo a CT of the abdomen and pelvis followin g this study. Reviewed by: Bryce Bella MD on 01/15/2023 9:33 AM PDT Approved by: Bryce Bella MD on 01/15/2023 9:33 AM PDT Station ID: [id number]
[2023-01-15] MEDS ORDERED: ACETAMINOPHEN 500 MG TABLET PO STA (10:37)
--- NOTE | 2023-01-15 10:39 | CT Report ---
PROCEDURE: ABDOMEN/PELVIS WO INDICATIONS: UTI concern for obstruction on sono TECHNIQUE: Noncontrast 5 mm thick sections acquired from the diaphragms to the symphysis. 5 mm coronal and sagi ttal reformats were then performed. For radiation dose reduction, the following was used: automated exposure control, adjustment of mA and/or kV according to patient size. COMPARISON: None. FINDINGS: Image quality: Excellent. ABDOMEN: Lung bases: Patchy bibasilar atelectasis versus scarring. Top normal heart size. Pacemaker. Solid organs: Liver and spleen are normal in size. Gallbladder is unremarkable without calcified st ones. Pancreas is normal in contours. No adrenal nodules. Kidneys are normal in size, without hydr onephrosis or nephrolithiasis. Specifically, there is no left hydronephrosis. There are multiple enrique pelvic cysts. Peritoneum and bowel: Unenhanced bowel loops demonstrate normal wall thickness and caliber. No free fluid or air. Remote partial proximal colonic resection. Moderate fecal load. Nodes and vessels: No retroperitoneal or mesenteric adenopathy by size criteria. Aorta and inferior vena cava are normal in caliber. Miscellaneous: No ventral hernias. PELVIS: Genitourinary: Bladder wall thickness is normal. Miscellaneous: No inguinal hernias or adenopathy. Bones: No suspicious bony lesions. No vertebral body compression fractures. 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 Diffuse lumbar degenerative change. Canal stenosis at L2-L3 and L3-L4. IMPRESSION: 1. There is no left hydronephrosis. There are multiple left peripelvic cysts. 2. No evidence of acute abdominal process. 3. Lumbar degenerative change without canal stenosis. Reviewed by: Bryce Bella MD on 01/15/2023 10:38 AM PDT Approved by: Bryce Bella MD on 01/15/2023 10:38 AM PDT Station ID: [id number]
[2023-01-15] MEDS ORDERED: oxyCODONE 5 MG TABLET PO PRN (11:53)
[2023-01-15] MEDS ORDERED: SODIUM CHLORIDE FLUSH 0.9% 10 ML SYRINGE IVP PRN (11:53)
[2023-01-15] MEDS ORDERED: ONDANSETRON 4 MG/2 ML VIAL IVP PRN (11:53)
[2023-01-15] MEDS ORDERED: ONDANSETRON ODT 4 MG TABLET TL PRN (11:53)
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
[2023-01-15] MEDS: SODIUM CHLORIDE 0.9% 1,000 ML IV SCH ×2 (12:16→21:45)
--- NOTE | 2023-01-15 14:47 | PHARMACY PROGRESS NOTE ---
- Best Possible Medication History Admit Date and Time: 01/15/23 1153 Processed by: Pharmacy Medication History completed: Yes Patient Interview: Completed Secondary Source(s): Pharmacy records As the person ultimately responsible for medication therapy, providers are able to order a medication from an existing home medication list in [facility] via the "Reconcile Routine" prior to Confirmation of that medication by administrative support technician. Such practice is discouraged except when the physician, in their clinical judgment, deems that a medical need exists for a medication without regard to previous use.
[2023-01-15] MEDS: SODIUM CHLORIDE FLUSH 0.9% 10 ML SYRINGE IVP SCH (19:22)
[2023-01-15] MEDS ORDERED: FUROSEMIDE 20 MG/2 ML VIAL IVP STA (19:58)
[2023-01-15] MEDS: traZODone 50 MG TABLET PO SCH (21:29)
[2023-01-15] MEDS: METOPROLOL TARTRATE 25 MG TABLET PO SCH (21:29)
[2023-01-16] MEDS: SODIUM CHLORIDE FLUSH 0.9% 10 ML SYRINGE IVP SCH ×3 (00:37→17:01)
[2023-01-16] MEDS: ACETAMINOPHEN 325 MG TABLET PO PRN ×3 (00:40→20:43)
[2023-01-16 06:08] LABS: BASOPHILS % (AUTO) 0.2 %; EOSINOPHILS % (AUTO) 0.2 %; HCT - HEMATOCRIT 41.9 % (42.0-52.0); HGB - HEMOGLOBIN 13.5 g/dL (14.0-18.0); LYMPHOCYTES # (AUTO) 1.1 10^3/uL (1.5-3.5); LYMPHOCYTES % (AUTO) 9.3 %; MEAN CORPUSCULAR HEMOGLOBIN 34.3 pg (27.0-31.0); MEAN CORPUSCULAR HGB CONC 32.2 g/dL (32.0-36.0); MEAN CORPUSCULAR VOLUME 106.3 fL (80.0-94.0); MEAN PLATELET VOLUME 10.3 fL (7.4-11.4); MONOCYTES # (AUTO) 1.4 10^3/uL (0.0-1.0); MONOCYTES % (AUTO) 12.2 %; NEUTROPHILS # (AUTO) 8.8 10^3/uL (1.5-6.6); NEUTROPHILS % (AUTO) 77.6 %; PLT - PLATELET COUNT 140 10^3/uL (130-450); RED BLOOD COUNT 3.94 10^6/uL (4.70-6.10); RED CELL DISTRIBUTION WIDTH 13.2 % (12.0-15.0); WHITE BLOOD COUNT 11.3 x10^3/uL (4.8-10.8)
[2023-01-16 06:10] LABS: INR 2.5 (0.8-1.2); PT - PROTHROMBIN TIME 25.9 secs (9.9-12.6)
[2023-01-16 06:15] LABS: CALCIUM 8.3 mg/dL (8.5-10.3); CREATININE 0.9 mg/dL (0.6-1.2); POTASSIUM 3.9 mmol/L (3.5-5.0)
[2023-01-16] MEDS: LEVOTHYROXINE 25 MCG TABLET PO SCH (06:22)
[2023-01-16] MEDS: SOLIFENACIN SUCCINATE 5 MG TABLET PO SCH (08:09)
[2023-01-16] MEDS: ATORVASTATIN 40 MG TABLET PO SCH (08:09)
[2023-01-16] MEDS: WARFARIN 5 MG TABLET PO SCH (08:09)
[2023-01-16] MEDS: METOPROLOL TARTRATE 25 MG TABLET PO SCH ×2 (08:10→20:43)
[2023-01-16] MEDS: TAMSULOSIN 0.4 MG CAPSULE PO SCH (08:11)
[2023-01-16] MEDS ORDERED: ENOXAPARIN 40 MG/0.4 ML SYRINGE SUBQ SCH (09:00)
[2023-01-16] MEDS ORDERED: cefTRIAXone 1 GM in SODIUM CHLORIDE 0.9% MINIBAG 100 ML IV SCH (09:00)
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
[2023-01-16] MEDS: traZODone 50 MG TABLET PO SCH (20:43)
[2023-01-17] MEDS: SODIUM CHLORIDE FLUSH 0.9% 10 ML SYRINGE IVP SCH ×4 (03:42→23:50)
[2023-01-17 05:31] LABS: INR 1.9 (0.8-1.2); PT - PROTHROMBIN TIME 20.8 secs (9.9-12.6)
[2023-01-17 05:32] LABS: BASOPHILS % (AUTO) 0.3 %; EOSINOPHILS # (AUTO) 0.2 10^3/uL (0.0-0.7); EOSINOPHILS % (AUTO) 3.7 %; HCT - HEMATOCRIT 39.4 % (42.0-52.0); HGB - HEMOGLOBIN 13.1 g/dL (14.0-18.0); LYMPHOCYTES # (AUTO) 0.7 10^3/uL (1.5-3.5); LYMPHOCYTES % (AUTO) 11.3 %; MEAN CORPUSCULAR HEMOGLOBIN 34.6 pg (27.0-31.0); MEAN CORPUSCULAR HGB CONC 33.2 g/dL (32.0-36.0); MEAN PLATELET VOLUME 9.6 fL (7.4-11.4); MONOCYTES # (AUTO) 0.7 10^3/uL (0.0-1.0); MONOCYTES % (AUTO) 11.5 %; NEUTROPHILS # (AUTO) 4.4 10^3/uL (1.5-6.6); NEUTROPHILS % (AUTO) 72.7 %; PLT - PLATELET COUNT 168 10^3/uL (130-450); RED BLOOD COUNT 3.79 10^6/uL (4.70-6.10)
[2023-01-17 05:33] LABS: CALCIUM 8.3 mg/dL (8.5-10.3); CREATININE 0.7 mg/dL (0.6-1.2); POTASSIUM 3.8 mmol/L (3.5-5.0)
[2023-01-17] MEDS: LEVOTHYROXINE 25 MCG TABLET PO SCH (06:39)
[2023-01-17] MEDS: ATORVASTATIN 40 MG TABLET PO SCH (09:26)
[2023-01-17] MEDS: ACETAMINOPHEN 325 MG TABLET PO PRN ×3 (09:26→21:10)
[2023-01-17] MEDS: TAMSULOSIN 0.4 MG CAPSULE PO SCH (09:26)
[2023-01-17] MEDS: SOLIFENACIN SUCCINATE 5 MG TABLET PO SCH (09:26)
[2023-01-17] MEDS: METOPROLOL TARTRATE 25 MG TABLET PO SCH ×2 (09:26→21:03)
[2023-01-17] MEDS: WARFARIN 5 MG TABLET PO SCH (09:27)
[2023-01-17] MEDS: CIPROFLOXACIN 400 MG/200 ML 400 MG/200 ML BAG IV SCH ×2 (09:35→21:03)
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
--- NOTE | 2023-01-17 17:34 | PROVIDER PROGRESS NOTE ---
Subjective - Prog Note Date Prog Note Date: 01/17/23 Prog Note Time: 17:32 - Subjective Subjective: He feels great. He denies chest pain, palpitations, shortness of breath. Walking with a walker because his balance is off. Telling jokes in the hallway. Eating all of his food. He has not had any fever, blood pressures been stable, required oxygen on admission and the day after. But he has been on room air all day today. With that O2 sats are excellent at 94 to 96%. Current Medications - Current Medications Current Medications: Active Medications Acetaminophen (Acetaminophen 325 Mg Tablet) 650 mg PO Q4HR PRN PRN Reason: Pain 1 to 4, or Fever Last Admin: 01/17/23 14:22 Dose: 650 mg Atorvastatin Calcium (Atorvastatin 40 Mg Tablet) 40 mg PO DAILY [facility] Last Admin: 01/17/23 09:26 Dose: 40 mg Ciprofloxacin (Cipro 400 Mg/200 Ml) 400 mg in 200 mls @ 200 mls/hr IV Q12H [facility] Last Infusion: 01/17/23 10:50 Dose: Infused Levothyroxine Sodium (Levothyroxine 25 Mcg Tablet) 25 mcg PO QDAC [facility] Last Admin: 01/17/23 06:39 Dose: 25 mcg Metoprolol Tartrate (Metoprolol Tartrate 25 Mg Tablet) 25 mg PO BID [facility] Last Admin: 01/17/23 09:26 Dose: 25 mg Ondansetron HCl (Ondansetron Odt 4 Mg Tablet) 4 mg TL Q6HR PRN PRN Reason: Nausea / Vomiting Ondansetron HCl (Ondansetron 4 Mg/2 Ml Vial) 4 mg IVP Q6HR PRN PRN Reason: Nausea / Vomiting Oxycodone HCl (Oxycodone 5 Mg Tablet) 5 mg PO Q4HR PRN PRN Reason: Pain 5 to 7 Last Admin: 01/16/23 12:24 Dose: 5 mg Sodium Chloride (Sodium Chloride Flush 0.9% 10 Ml Syringe) 10 ml IVP PRN PRN PRN Reason: NEEDED PER PROVIDER ORDERS Sodium Chloride (Sodium Chloride Flush 0.9% 10 Ml Syringe) 10 ml IVP 0100,0900,1700 [facility] Last Admin: 01/17/23 09:28 Dose: 10 ml Solifenacin (Solifenacin Succinate 5 Mg Tablet) 5 mg PO DAILY [facility] Last Admin: 01/17/23 09:26 Dose: 5 mg Tamsulosin HCl (Tamsulosin 0.4 Mg Capsule) 0.4 mg PO DAILY [facility] Last Admin: 01/17/23 09:26 Dose: 0.4 mg Trazodone HCl (Trazodone 50 Mg Tablet) 50 mg PO [facility] Last Admin: 01/16/23 20:43 Dose: 50 mg Warfarin Sodium (Warfarin 5 Mg Tablet) 2.5 - 5 mg PO DAILY [facility] Last Admin: 01/17/23 09:27 Dose: 5 mg Atorvastatin Calcium 40 mg PO DAILY 01/15/23 Levothyroxine [Synthroid] 25 mcg PO QDAC 01/15/23 Metoprolol Tartrate [Lopressor] 1 tab PO BID 01/15/23 Tamsulosin [Flomax] 1 cap PO DAILY 01/15/23 Warfarin [Coumadin] 0.5 - 1 tab PO DAILY 01/15/23 oxyBUTYnin chloride [Oxybutynin Chloride] 1 tab PO DAILY 01/15/23 traZODone [Desyrel] 50 mg PO HS 01/15/23 Objective - Vital Signs/Intake & Output Reviewed Vital Signs: Yes Vital Signs: Vital Signs x48h Temp Pulse Resp BP Pulse Ox O2 Flow Rate 01/17/23 17:23 36.4 C L 59 L 18 117/77 95 01/17/23 14:59 97 01/17/23 11:14 96 01/17/23 11:10 94 01/17/23 11:06 96 01/17/23 11:05 98 2 Intake & Output: Intake & Output 01/14/23 01/15/23 01/16/23 01/17/23 23:59 23:59 23:59 23:59 Intake Total 2025.811 4731 1260 Output Total 227 460 3437 Balance 863.333 915 135 - Objective General Appearance: positive: No acute distress, Alert, Other (Very doran and hearty elderly gentleman. Expansive personality. Has spoken to all the nurses on the floor, [employer]'s, nutrition staff. All of them have remarked on what a character he is) Eyes Bilateral: positive: PERRL, EOMI ENT: positive: No signs of dehydration Neck: positive: No JVD. negative: Stiff neck Respiratory: positive: No respiratory distress. negative: Wheezes (He had wheezing on admission. Faint. Has not had any since.), Rales, Rhonchi Cardiovascular: positive: Regular rate & rhythm, Systolic murmur Abdomen: positive: Non-tender, No organomegaly, Nml bowel sounds, No distention Skin: positive: Warm, Dry Extremities: positive: Full ROM, Pedal edema Neurologic/Psychiatric: positive: Oriented x3 (He is forgetful. I answer the same questions several times for him. If too many people are speaking in the room he ask everyone to please be quiet so we can focus.), CN's nml (2-12), Motor nml - Lab Results Fish Bones: 01/17/23 05:16 01/17/23 05:16 Other Labs: Lab Results x24hrs 01/17/23 01/17/23 01/17/23 Range/Units 09:41 05:16 05:16 WBC (4.8-10.8) x10^3/uL RBC (4.70-6.10) 10^6/uL Hgb (14.0-18.0) g/dL Hct (42.0-52.0) % MCV (80.0-94.0) fL MCH (27.0-31.0) pg MCHC (32.0-36.0) g/dL RDW (12.0-15.0) % Plt Count (130-450) 10^3/uL MPV (7.4-11.4) fL Neut # (Auto) (1.5-6.6) 10^3/uL Lymph # (Auto) (1.5-3.5) 10^3/uL [place] # (Auto) (0.0-1.0) 10^3/uL Eos # (Auto) (0.0-0.7) 10^3/uL Baso # (Auto) (0.0-0.1) 10^3/uL Absolute Nucleated RBC x10^3/uL Nucleated RBC % /100WBC PT 20.8 H (9.9-12.6) secs INR 1.9 H (0.8-1.2) Sodium 139 (135-145) mmol/L Potassium 3.8 (3.5-5.0) mmol/L Chloride 108 (101-111) mmol/L Carbon Dioxide 24 (21-32) mmol/L Anion Gap 7.0 (6-13) BUN 21 H (6-20) mg/dL Creatinine 0.7 (0.6-1.2) mg/dL Estimated GFR (MDRD) 107 (>89) Glucose 107 H (70-100) mg/dL Calcium 8.3 L (8.5-10.3) mg/dL Folate 12.38 (5.90 - >24.8) ng/mL 01/17/23 Range/Units 05:16 WBC 6.0 (4.8-10.8) x10^3/uL RBC 3.79 L (4.70-6.10) 10^6/uL Hgb 13.1 L (14.0-18.0) g/dL Hct 39.4 L (42.0-52.0) % MCV 104.0 H (80.0-94.0) fL MCH 34.6 H (27.0-31.0) pg MCHC 33.2 (32.0-36.0) g/dL RDW 13.0 (12.0-15.0) % Plt Count 168 (130-450) 10^3/uL MPV 9.6 (7.4-11.4) fL Neut # (Auto) 4.4 (1.5-6.6) 10^3/uL Lymph # (Auto) 0.7 L (1.5-3.5) 10^3/uL [place] # (Auto) 0.7 (0.0-1.0) 10^3/uL Eos # (Auto) 0.2 (0.0-0.7) 10^3/uL Baso # (Auto) 0.0 (0.0-0.1) 10^3/uL Absolute Nucleated RBC 0.00 x10^3/uL Nucleated RBC % 0.0 /100WBC PT (9.9-12.6) secs INR (0.8-1.2) Sodium (135-145) mmol/L Potassium (3.5-5.0) mmol/L Chloride (101-111) mmol/L Carbon Dioxide (21-32) mmol/L Anion Gap (6-13) BUN (6-20) mg/dL Creatinine (0.6-1.2) mg/dL Estimated GFR (MDRD) (>89) Glucose (70-100) mg/dL Calcium (8.5-10.3) mg/dL Folate (5.90 - >24.8) ng/mL ABX Reporting Has patient been on IV antibiotics over the past 48 hours?: Yes Sepsis Event Note (H) - Evaluation Current Stage of Sepsis: Sepsis Possible source of Sepsis: positive: Genitourinary - Sepsis Criteria Sepsis Criteria: Recorded Temperature greater than 38.3C or Less than 36C, Recorded Respiratory Rate greater than 20, WBC count greater than 10% bands, WBC count greater than 12,000 or less than 4000, LINE THERAPIST: altered consciousness (unrelated to primary neuro pathology) Assessment/Plan - Problem List (1) Sepsis Impression: Criteria met were recorded temperature greater than 38.3, recorded respiratory rate greater than 20, white cell count greater than 10% bands, white cell count greater than 12,000, and altered consciousness unrelated to a primary neurological event. Lactic acid was normal. Did not require aggressive fluid resuscitation since blood pressure was normal. Those criteria have now resolved. Source appears to be urine. Possibly lungs on the basis of bibasilar atelectasis or early infiltrate on Chest x-ray., but most likely . On admission lung exam he had wheezing and with rhonchi. He sounded congested. As such CT of the chest was done and he does not have pulmonary emboli. He has patchy bibasilar atelectasis with minimal bibasilar pleural thickening. Cardiomegaly. No adenopathy. 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 Left brachiocephalic vein is noted to be patent. Blood cultures were negative. However urine grew out Pseudomonas aeruginosa. White cell count was 14.2>> 11.3>>6.0 today Since the morning of 01/16, he is no longer confused, respiratory rate is normal, and he has been afebrile since admission. I was able to review encounter at [facility] on November 15. He is thought that he was admitted. Or at least she stated he was admitted to the hospital and this is what the emergency room doctor understood. The patient left AMA from the November 15 visit. Plan: Change Rocephin to ciprofloxacin 400 mg IVP bid. I discussed renal dosing with pharmacy. Creatinine and age have something to do with it. At this time I am going to continue 400 mg IV push twice daily. Azithromycin day #3 for possible lung infection. He completes therapy for that today. I spent about 10 minutes going over atelectasis, and what that could look like on chest x-ray. I gave him instructions on incentive spirometry and showed him how to do that. Right now he is bringing up anywhere between 1500 cc to 1750 cc Qualifiers: Sepsis type: sepsis due to unspecified organism Sepsis acute organ dysfunction status: without acute organ dysfunction Qualified Code(s): A41.9 - Sepsis, unspecified organism (2) Pseudomonas UTI (urinary tract infection) Conclusion/Plan: Without pyelonephritis or obstruction seen. At this time he is on empiric Roce phin. Sensitivities show it to be resistant to cefazolin. But sensitive to cefepime, Cipro, gentamicin, imipenem, Levaquin, Zosyn and tobramycin. Plan: Ciprofloxacin IV push twice daily, 400 mg. I think he could be discharged tomorrow but will be transition to Cipro 250 p.o. twice daily for up to 2 weeks. Qualifiers: Urinary tract infection type: acute cystitis (3) Benign prostatic hyperplasia with lower urinary tract symptoms Conclusion/Plan: He is already on Flomax. Not on Proscar. I suggest he be on Proscar and discuss this with his primary care provider when he leaves the hospital. He says that he has been dealing with this for a while. He sees Dr. Yobany Strong, [facility] He asked if he is a candidate for TURP. I told him to have a good discussion with Dr. Strong when he gets out of the hospital. Qualifiers: Lower urinary tract symptom detail: urinary frequency Qualified Code(s): N40.1 - Benign prostatic hyperplasia with lower urinary tract symptoms; R35.0 - Frequency of micturition (4) Metabolic encephalopathy resolved. Conclusion/Plan: On my intake history, I spoke to his and she was very clear in stating that this gentleman is usually quite sharp mentally. Has no word finding problems, no stuttering speech. When he gets going it can be hard to keep up with him. At least from an intellectual perspective. On admission he had difficulty completing sentences. Difficulty finding words. Almost stuttered in his speech. By the morning of the all of that had resolved. Since that time this gentleman has just been sarah. Walking the hallways to exercise. Pr acticing his incentive spirometry. Doing everything possible to get out of the hospital. Hopefully can be discharged tomorrow. 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 He will be on antibiotics so absorption will definitely be changed. I am checking INR daily to make sure he does not develop a supratherapeutic INR. Today he is 2.5. And I will not change any Coumadin dosing for now. I did explain to him that he will need to watch this in the outpatient setting. His primary care provider does labs on Tuesdays and Fridays. I told him to go ahead and check his labs Tuesdays and Fridays while he is on Cipro to avoid prolonged INR. That will be in his discharge instructions. (6) Chronic systolic heart failure Conclusion/Plan: This diagnosis is on the basis of his echocardiogram at [facility]. He had been seen in the ER November 15 and the echo was done December 02. The patient is not on a diuretic, YOAN inhibitor. But he is on metoprolol. I am hoping not to give him too many IV fluids to then fluid overload him. As such I only gave him 2 L for sepsis protocol and then stopped IVF. On examination on admission there was chest congestion, rhonchi and wheezing. I gave him 1 dose of 20 mg of Lasix The night he was admitted. By the next day very faint rhonchi and no wheezing in the right lung. BNP went from 121 and is 262 . Today there is no wheezing, no rhonchi. He looks great. Not on oxygen. Plan: No further diuresis for now. I have resumed his usual home medications of atorvastatin, Desyrel, metoprolol 25 mg p.o. twice daily, and consider diuretics if he does get fluid overloaded. (7) Macrocytosis B12 and folate are normal. When he checks in with his primary care provider, though should be repeated. Consider bone marrow biopsy if clinically indicated for myelodysplasia (8) Falls at home When he was seen in the emergency room on November 15 at [facility]. He was seen because of multiple falls over the course of the week before. He had 1 fall at home 4 days previously. Then the day before he was seen in the emergency room had fallen 4 times. His legs would feel weak. But otherwise did not remember any other antecedent symptoms. He did not think he lost consciousness but his states he did. He never hit his head. He had just finished treatment for pneumonia with antibiotics the month before and it finished antibiotics [address] of the head was negative without evaluation. X-ray of the pelvis had a faint linear lucency at the inferior aspect of the right greater trochanter. Chest x-ray had streaky linear opacities at the lung bases. EKG had a wide-complex rhythm with a left axis deviation. Possibly atrial paced through pacer spikes difficult to discern. In the end, they did not know why he was falling. They wanted to admit him to put him on telemetry and do further evaluation but the patient refused. He used to use a cane, but wanted to go home with a walker. So they walked him 100 feet in the emergency room. He was able to go home. says that a few days later they called him with "an infection" and put him on antibiotics. But she is vague about what that was. He did not had a follow-up echocardiogram with his jersey knitter, Dr. Ford on December 04. He has global hypokinesis with possible small areas of wall motion abnormality. EF was 45%. Left atrium mildly dilated. Aortic valve did not have stenosis or regurgitation. Right ventricle was normal. Right atrium was dilated. Tricuspid valve normal. As such I do not think his falls are from aortic stenosis. He is a very jovial fellow. With macrocytosis. And although he denies alcohol intake, that may be a problem. Or at least a problem in the past. He is not having any arrhythmias here. He is not orthostatic. I will make sure that he follows up with his jersey knitter about the echo report suggesting new diagnosis of systolic congestive heart failure
[2023-01-17] MEDS: traZODone 50 MG TABLET PO SCH (21:03)
[2023-01-18] MEDS: ACETAMINOPHEN 325 MG TABLET PO PRN ×2 (04:16→08:46)
[2023-01-18 06:07] LABS: BASOPHILS % (AUTO) 0.5 %; EOSINOPHILS # (AUTO) 0.2 10^3/uL (0.0-0.7); EOSINOPHILS % (AUTO) 5.3 %; HCT - HEMATOCRIT 38.7 % (42.0-52.0); HGB - HEMOGLOBIN 12.7 g/dL (14.0-18.0); LYMPHOCYTES # (AUTO) 0.7 10^3/uL (1.5-3.5); LYMPHOCYTES % (AUTO) 15.3 %; MEAN CORPUSCULAR HEMOGLOBIN 33.4 pg (27.0-31.0); MEAN CORPUSCULAR HGB CONC 32.8 g/dL (32.0-36.0); MEAN CORPUSCULAR VOLUME 101.8 fL (80.0-94.0); MEAN PLATELET VOLUME 9.8 fL (7.4-11.4); MONOCYTES # (AUTO) 0.5 10^3/uL (0.0-1.0); MONOCYTES % (AUTO) 10.4 %; NEUTROPHILS # (AUTO) 2.9 10^3/uL (1.5-6.6); PLT - PLATELET COUNT 149 10^3/uL (130-450); RED CELL DISTRIBUTION WIDTH 12.9 % (12.0-15.0); WHITE BLOOD COUNT 4.3 x10^3/uL (4.8-10.8)
[2023-01-18 06:11] LABS: INR 2.2 (0.8-1.2); PT - PROTHROMBIN TIME 23.1 secs (9.9-12.6)
[2023-01-18 06:34] LABS: CALCIUM 8.6 mg/dL (8.5-10.3); CREATININE 0.7 mg/dL (0.6-1.2); POTASSIUM 3.7 mmol/L (3.5-5.0)
[2023-01-18] MEDS: LEVOTHYROXINE 25 MCG TABLET PO SCH (06:42)
[2023-01-18] MEDS: METOPROLOL TARTRATE 25 MG TABLET PO SCH (08:29)
[2023-01-18] MEDS: SOLIFENACIN SUCCINATE 5 MG TABLET PO SCH (08:29)
[2023-01-18] MEDS: ATORVASTATIN 40 MG TABLET PO SCH (08:29)
[2023-01-18] MEDS: CIPROFLOXACIN 400 MG/200 ML 400 MG/200 ML BAG IV SCH (08:29)
[2023-01-18] MEDS: TAMSULOSIN 0.4 MG CAPSULE PO SCH (08:29)
[2023-01-18] MEDS: WARFARIN 5 MG TABLET PO SCH (08:30)
[2023-01-18] MEDS: SODIUM CHLORIDE FLUSH 0.9% 10 ML SYRINGE IVP SCH (08:30)
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
[2023-01-18 10:39] VITALS: BP 134/83
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
== END 2023-01-18 11:40 | disposition home health service (06) | DRG 871 ==
LOC: EDUNIT# → ED 06:00 → MS2 11:53
PROVIDERS: ADMIT Specialist; ATTEND Specialist
DX: A41.9 Sepsis, unspecified organism (principal); N10 Acute pyelonephritis; Z20.822 Contact with and (suspected) exposure to COVID-19; G93.41 Metabolic encephalopathy; N30.00 Acute cystitis without hematuria; J98.11 Atelectasis; Z90.49 Acquired absence of other specified parts of digestive tract; I50.22 Chronic systolic (congestive) heart failure; I10 Essential (primary) hypertension; I87.1 Compression of vein; I82.B12 Acute embolism and thrombosis of left subclavian vein; T82.857A Stenosis of other cardiac prosthetic devices, implants and grafts, initial encounter; N40.1 Benign prostatic hyperplasia with lower urinary tract symptoms; R35.0 Frequency of micturition; I11.0 Hypertensive heart disease with heart failure; D75.89 Other specified diseases of blood and blood-forming organs; B96.5 Pseudomonas (aeruginosa) (mallei) (pseudomallei) as the cause of diseases classified elsewhere; W06.XXXA Fall from bed, initial encounter; R41.0 Disorientation, unspecified; I48.0 Paroxysmal atrial fibrillation; I49.5 Sick sinus syndrome; E78.00 Pure hypercholesterolemia, unspecified; I73.9 Peripheral vascular disease, unspecified; G62.9 Polyneuropathy, unspecified; E03.9 Hypothyroidism, unspecified; E66.9 Obesity, unspecified; Z68.35 Body mass index [BMI] 35.0-35.9, adult; Z86.718 Personal history of other venous thrombosis and embolism; Z87.01 Personal history of pneumonia (recurrent); Z95.0 Presence of cardiac pacemaker; Y92.009 Unspecified place in unspecified non-institutional (private) residence as the place of occurrence of the external cause; Z86.73 Personal history of transient ischemic attack (TIA), and cerebral infarction without residual deficits; Z87.19 Personal history of other diseases of the digestive system; Z79.01 Long term (current) use of anticoagulants; Z91.81 History of falling
CPT/HCPCS: 36415; 51798; 71045; 71275; 74176; 76770; 80048; 80053; 81001; 82607; 82746; 83605; 83690; 83880; 85025; 85610; 87040; 87086; 87181; 87633; 93005; 96365; 97116; 97162; 97166; 97535; 99285; A9270; Q9967; 81003

== ENCOUNTER 2023-01-30 08:00 | Outpatient (CLI) | payer MEDICARE, OTHER | END 2023-01-30 23:59 | disposition home or self-care (01) | LOC: LAB.R 08:00 | PROVIDERS: ATTEND Physician Assistant | DX: S91.001A Unspecified open wound, right ankle, initial encounter (principal) | CPT/HCPCS: 87070; 87077; 87205 ==

== ENCOUNTER 2023-02-26 10:47 | Emergency (ER) | payer MEDICARE, OTHER ==
--- NOTE | 2023-02-26 12:11 | ED Physician Documentation ---
PD HPI LOWER EXT INJURY - Stated complaint Stated Complaint: RT ANKLE WOUND WEAPING - Chief complaint Chief Complaint: Wound - History obtained from History obtained from: Patient, Family () - History of Present Illness PD HPI LOW EXT INJURY LOCATION: Right, Ankle Type of injury: Other (had been fitted for ankle brace and found that it rubbed at lateral malleolus, causing skin breakdown/superficial ulceration. Has been seen by Home Health wound care, and was treated with doxycycline Rx 02/05/23 based presumedly on culture obtained 01/30/23 showing staph epidermidis. Prior cx December.) Where injury occurred: Home Timing - details: Gradual onset, Still present, Waxing and waning Improved by: Dressing. No: Meds Associated symptoms: Numbness (some chronic numbness of foot and ankle.), Swelling, Discolored (redness). No: Weakness Contributing factors: Prior ortho surgery (ankle repair with fixation and screws many years ago. Has the screw heads just under the skin at the lateral mallleolus, making it easy to rub/get irritated. Is seen by Home health twice weekly and was yesterday suggested to come to ER for other tests/concern of osteomyelitis.) Similar symptoms before: Diagnosis (ulceration with infection. Currently getting home health wound care twice weekly for the past 2-3 weeks. states not improved at all with doxycycline antibiotic course that was for 1 week, and he has been off abx 2 weeks.) Recently seen: Clinic Review of Systems Constitutional: denies: Fever, Chills, Myalgias Skin: reports: Lesions, Abrasion (s) Musculoskeletal: denies: Back pain Neurologic: reports: Numbness. denies: Generalized weakness, Focal weakness PD PAST MEDICAL HISTORY - Past Medical History Cardiovascular: Congestive heart failure, Hypertension, High cholesterol, Peripheral Vascular Disease, Deep vein thrombosis, Atrial fibrillation Respiratory: Pneumonia Neuro: TIA, Peripheral neuropathy Endocrine/Autoimmune: HyPOthyroidism GI: C.difficile, Diverticulitis : Benign prostate hypertrophy, Retention, Nocturia, Frequency, Other Musculoskeletal: Osteoarthritis Derm: Other - Past Surgical History Past Surgical History: Yes General: Appendectomy, Bowel surgery Ortho: Knee replacement Cardiovascular: Pacemaker HEENT: Tonsil/Adenoidectomy - Present Medications Home Medications: Ambulatory Orders Medication Instructions Recorded Confirmed Atorvastatin Calcium 40 mg PO DAILY 01/15/23 02/26/23 Levothyroxine [Synthroid] 25 mcg PO QDAC 01/15/23 02/26/23 Metoprolol Tartrate [Lopressor] 1 tab PO BID 01/15/23 02/26/23 Tamsulosin [Flomax] 1 cap PO DAILY 01/15/23 02/26/23 Warfarin [Coumadin] 0.5 - 1 tab PO DAILY 01/15/23 02/26/23 oxyBUTYnin chloride [Oxybutynin 1 tab PO DAILY 01/15/23 02/26/23 Chloride] traZODone [Desyrel] 50 mg PO HS 01/15/23 02/26/23 Doxycycline Hyclate 100 mg PO BID 7 Days #20 cap 02/26/23 Mupirocin 2% Oint [Bactroban 2% 1 applic TOP TID #15 gm 02/26/23 Oint] - Allergies Allergies/Adverse Reactions: Allergies Allergy/AdvReac Type Severity Reaction Status Date / Time No Known Drug Allergies Allergy Verified 02/26/23 11:15 - Social History Does the pt smoke?: No Smoking Status: Never smoker Does the pt drink ETOH?: No Does the pt have substance abuse?: No - Immunizations Immunizations are current?: Yes - POLST Patient has POLST: No PD ED PE NORMAL - Vitals Vital signs reviewed: Yes - General General: Alert and oriented X 3, No acute distress, Well developed/nourished - Derm Derm: Warm and dry - Extremities Extremities: Other (both feet with santiago/dusky doloring but has quite brisk cap refill through the foot/toes. Lateral amalleolus right ankle with 1 x 0.5 cm sized ulceration to fatty tissue. No bony visibility. Screw head palpable under the tissue. There is mild yellow weeping. Surrounding redness with some swelling.) - Neuro Neuro: Alert and oriented X 3, No motor deficit, No sensory deficit, Normal speech Results - Vitals Vitals: Vital Signs - 24 hr 02/26/23 02/26/23 02/26/23 11:10 13:46 16:44 Temperature 36.7 C Heart Rate 57 L 60 59 L Respiratory 16 16 16 Rate Blood Pressure 130/83 H 134/83 H 124/77 O2 Saturation 94 94 100 Oxygen O2 Source [With Activity] Nasal cannula O2 Source [Without Activity] Nasal cannula O2 Source Room air - Labs Labs: Microbiology 02/26/23 16:16 Wound Culture - Preliminary Ankle - Right Laboratory Tests 02/26/23 02/26/23 02/26/23 12:24 12:24 12:24 WBC 7.9 RBC 4.63 L Hgb 15.9 Hct 48.1 MCV 103.9 H MCH 34.3 H MCHC 33.1 RDW 13.3 Plt Count 196 MPV 8.9 Neut # (Auto) 5.9 Lymph # (Auto) 1.1 L Clayton # (Auto) 0.6 Eos # (Auto) 0.1 Baso # (Auto) 0.0 Absolute Nucleated RBC 0.00 Nucleated RBC % 0.0 ESR 4 Sodium 139 Potassium 4.5 Chloride 104 Carbon Dioxide 26 Anion Gap 9.0 BUN 23 H Creatinine 1.0 Estimated GFR (MDRD) 71 L Glucose 102 H Calcium 9.6 Total Bilirubin 1.3 H AST 23 ALT 13 Alkaline Phosphatase 68 C-Reactive Protein 2.5 H Total Protein 8.1 Albumin 4.6 Globulin 3.5 Albumin/Globulin Ratio 1.3 Lipase 39 - Rads (name of study) CT ankle/foot Relevant Findings:: Prelim report reviewed (prior fixation. Skin ulceration with surrounding cellulitis. No evidence for osteomyelitis. ), See rad report PD Medical Decision Making - ED course Complexity details: reviewed results (no signs of osteo on testing. Will treat as Dxc ellulitis with doxy again, pending the current culture results to amend. ), considered differential (has PVD but seems to have good brisk cap refill. Ulceration of the lateral malleolus. Culture obtained of some mild yellow weeping. Eval for osteo showed no signs on CT, normal ESR and minimally elevated CRP. ), d/w patient Departure - Departure Disposition: 01 Home, Self Care Clinical Impression: Cellulitis of right ankle, Skin ulcer Condition: Stable Record reviewed to determine appropriate education?: Yes Follow-Up: JEFFERY GIRALDO PA [Primary Care Provider] - Prescriptions: Mupirocin 2% Oint [Bactroban 2% Oint] 1 applic TOP TID #15 gm Doxycycline Hyclate 100 mg PO BID 7 Days #20 cap Comments: Your CT scan shows signs of inflammation around the ulcer consistent with skin infection called cellulitis. No signs of bone involvement (osteomyelitis). No fluid collections such as an abscess either. I did do a culture of the ankle we will see what that grows over the next couple of days. Have your primary care investigate the culture result in 2 to 3 days and see if the antibiotic choice needs modifying. For now we would go with doxycycline antibiotic twice daily for the next at least 10 days if it shows to be an appropriate antibiotic choice. More likely 2 weeks. I would also suggest daily dressing changes with cleaning soap and water and applying a little light bit of mupirocin antibiotic ointment and then dressing over it. I sent your prescriptions to [facility] in [place]. Discharge Date/Time: 02/26/23 16:47
[2023-02-26 12:31] LABS: BASOPHILS % (AUTO) 0.4 %; EOSINOPHILS # (AUTO) 0.1 10^3/uL (0.0-0.7); EOSINOPHILS % (AUTO) 1.3 %; HCT - HEMATOCRIT 48.1 % (42.0-52.0); HGB - HEMOGLOBIN 15.9 g/dL (14.0-18.0); LYMPHOCYTES # (AUTO) 1.1 10^3/uL (1.5-3.5); LYMPHOCYTES % (AUTO) 14.4 %; MEAN CORPUSCULAR HEMOGLOBIN 34.3 pg (27.0-31.0); MEAN CORPUSCULAR HGB CONC 33.1 g/dL (32.0-36.0); MEAN CORPUSCULAR VOLUME 103.9 fL (80.0-94.0); MEAN PLATELET VOLUME 8.9 fL (7.4-11.4); MONOCYTES # (AUTO) 0.6 10^3/uL (0.0-1.0); MONOCYTES % (AUTO) 8.1 %; NEUTROPHILS # (AUTO) 5.9 10^3/uL (1.5-6.6); NEUTROPHILS % (AUTO) 75.3 %; PLT - PLATELET COUNT 196 10^3/uL (130-450); RED BLOOD COUNT 4.63 10^6/uL (4.70-6.10); RED CELL DISTRIBUTION WIDTH 13.3 % (12.0-15.0); WHITE BLOOD COUNT 7.9 x10^3/uL (4.8-10.8)
[2023-02-26 12:51] LABS: ALBUMIN 4.6 g/dL (3.2-5.5); ALBUMIN/GLOBULIN RATIO 1.3 (1.0-2.2); BILIRUBIN,TOTAL 1.3 mg/dL (0.2-1.0); CALCIUM 9.6 mg/dL (8.5-10.3); CRP - C-REACTIVE PROTEIN 2.5 mg/dL (0-1.0); POTASSIUM 4.5 mmol/L (3.5-5.0); TOTAL PROTEIN 8.1 g/dL (6.7-8.2)
[2023-02-26] MEDS ORDERED: iohexoL-300 100 ML VIAL ONE (13:45)
--- NOTE | 2023-02-26 15:42 | CT Report ---
PROCEDURE: Lower EXTREMITY W - RT INDICATIONS: ankle wound/ eval for osteo/bone decay TECHNIQUE: After IV contrast infusion, 1 mm axial sections acquired from above the tibiotalar joint to the botto m of the calcaneus, with coronal and sagittal reformats. For radiation dose reduction, the following was used: automated exposure control, adjustment of mA and/or kV according to patient size. COMPARISON: Ankle radiograph dated 07/04/2022 FINDINGS: Image quality: Excellent. Bones: Patient is status post prior tibiotalar joint fusion with surgical hardware in place. Partial bony union involving tibiotalar joint adjacent to fixation hardware is noted. No gross hardware loose joaquin or failure is seen. Moderate osteoarthritic changes are noted throughout right ankle and foot wi th significant joint space narrowing, subchondral sclerosis and marginal osteophyte formation. No acu te fracture or dislocation. No cortical erosion or periosteal reaction is seen. No suspicious intraos seous lesion. Well-corticated bony fragments adjacent to tip of lateral malleolus is seen suggestive of old injury. Soft tissues: There is ulceration over lateral malleolus with adjacent subcutaneous soft tissue delta a and swelling. No discrete peripherally enhancing abscess collection is noted. Vascular calcificatio ns are noted in right ankle and foot. Small to moderate subtalar joint effusion is likely present. No calcified intra-articular loose bodies. No gross full-thickness ankle tendon rupture. IMPRESSION: 1. Ulceration over lateral malleolus with adjacent cellulitis. No discrete drainable abscess collecti on is seen. 2. No acute ankle fracture or dislocation. No CT evidence of osteomyelitis is seen. 3. Prior tibiotalar joint effusion with postsurgical changes. No gross hardware loosening or failure. 4. Osteoarthritic changes throughout right ankle and foot. No suspicious bony lesions. 5. No full-thickness tendon rupture. Vascular calcifications in ankle and foot soft tissue. Reviewed by: Tono Wilkes MD on 02/26/2023 3:41 PM PDT Approved by: Tono Wilkes MD on 02/26/2023 3:41 PM PDT Station ID: [id number]
[2023-02-26] MEDS ORDERED: DOXYCYCLINE 100 MG TABLET PO STA (16:11)
[2023-02-26] MEDS ORDERED: MUPIROCIN 2% OINT 1 GM TOP STA (16:11)
[2023-02-26 16:46] VITALS: BP 124/77
[2023-02-26] MEDS ORDERED: iohexoL-300 100 ML VIAL IVP ONE (18:19)
== END 2023-02-26 16:47 | disposition home or self-care (01) ==
LOC: ED 10:47
DX: L03.115 Cellulitis of right lower limb (principal); L97.319 Non-pressure chronic ulcer of right ankle with unspecified severity; I11.0 Hypertensive heart disease with heart failure; I50.9 Heart failure, unspecified; E78.00 Pure hypercholesterolemia, unspecified; I73.9 Peripheral vascular disease, unspecified; I48.91 Unspecified atrial fibrillation; G62.9 Polyneuropathy, unspecified; E03.9 Hypothyroidism, unspecified; Z79.899 Other long term (current) drug therapy; Z86.73 Personal history of transient ischemic attack (TIA), and cerebral infarction without residual deficits
CPT/HCPCS: 36415; 73201; 80053; 83690; 85025; 85651; 86140; 87070; 87205; 99284; A9270; Q9967; 87077; 87181

== ENCOUNTER 2023-03-10 12:37 | Emergency (ER) | payer MEDICARE, OTHER ==
--- NOTE | 2023-03-10 13:50 | XRAY Report ---
PROCEDURE: Chest 2 View X-Ray INDICATIONS: productive cough TECHNIQUE: 2 views of the chest were acquired. COMPARISON: Chest x-ray 01/15/2023 FINDINGS: Surgical changes and devices: Pacemaker Lungs and pleura: There is persistent elevation right hemidiaphragm. Minimal to mild appearance of r ight basilar opacity has developed since prior exam. Mediastinum: Mediastinal contours appear normal. Heart size is normal. Bones and chest wall: No suspicious bony lesions. Overlying soft tissues appear unremarkable. IMPRESSION: Minimal to mild right basilar opacity as well as atelectasis versus developing pneumonia. Reviewed by: Iveth Christianson MD on 03/10/2023 1:48 PM PDT Approved by: Iveth Christianson MD on 03/10/2023 1:48 PM PDT Station ID: [id number]
[2023-03-10] MEDS ORDERED: AMOX/CLAV 875 MG/125 MG TABLET PO STA (15:30)
[2023-03-10] MEDS ORDERED: AZITHROMYCIN 250 MG TABLET PO STA (15:30)
--- NOTE | 2023-03-10 15:32 | ED Physician Documentation ---
PD HPI URI - Stated complaint Stated Complaint: CHEST CONGESTION, COUGH - Chief complaint Chief Complaint: Resp - History obtained from History obtained from: Patient - Additional information Additional information: This is a very pleasant 87-year-old gentleman who used to live at [place] in [place] at which time he wore oxygen. He is not sure what specific diagnosis he wear oxygen for. [place]. He has had a productive cough with greenish sputum for the last week. He is not short of breath with it. No fevers. The cough does make it hard for him to rest at night. PD PAST MEDICAL HISTORY - Past Medical History Cardiovascular: Congestive heart failure, Hypertension, High cholesterol, Peripheral Vascular Disease, Deep vein thrombosis, Atrial fibrillation Respiratory: Pneumonia Neuro: TIA, Peripheral neuropathy Endocrine/Autoimmune: HyPOthyroidism GI: C.difficile, Diverticulitis : Benign prostate hypertrophy, Retention, Nocturia, Frequency, Other Musculoskeletal: Osteoarthritis Derm: Other - Past Surgical History Past Surgical History: Yes General: Appendectomy, Bowel surgery Ortho: Knee replacement Cardiovascular: Pacemaker HEENT: Tonsil/Adenoidectomy - Present Medications Home Medications: Ambulatory Orders Medication Instructions Recorded Confirmed Atorvastatin Calcium 40 mg PO DAILY 01/15/23 02/26/23 Levothyroxine [Synthroid] 25 mcg PO QDAC 01/15/23 02/26/23 Metoprolol Tartrate [Lopressor] 1 tab PO BID 01/15/23 02/26/23 Tamsulosin [Flomax] 1 cap PO DAILY 01/15/23 02/26/23 Warfarin [Coumadin] 0.5 - 1 tab PO DAILY 01/15/23 02/26/23 oxyBUTYnin chloride [Oxybutynin 1 tab PO DAILY 01/15/23 02/26/23 Chloride] traZODone [Desyrel] 50 mg PO HS 01/15/23 02/26/23 Doxycycline Hyclate 100 mg PO BID 7 Days #20 cap 02/26/23 Mupirocin 2% Oint [Bactroban 2% 1 applic TOP TID #15 gm 02/26/23 Oint] Albuterol Sulf [Ventolin Hfa 1 - 2 puffs INH Q4HR PRN #1 each 03/10/23 Inhaler] Amox/Clav 875/125 [Augmentin] 1 each PO Q12H #10 tablet 03/10/23 Azithromycin [Zithromax] 1 tab PO DAILY #4 tab 03/10/23 guaiFENesin/CODEINE [Robitussin AC] 5 - 10 ml PO Q6H PRN #120 ml 03/10/23 - Allergies Allergies/Adverse Reactions: Allergies Allergy/AdvReac Type Severity Reaction Status Date / Time No Known Drug Allergies Allergy Verified 02/26/23 11:15 - Social History Does the pt smoke?: No Smoking Status: Never smoker Does the pt drink ETOH?: No Does the pt have substance abuse?: No - Immunizations Immunizations are current?: Yes - POLST Patient has POLST: No PD ED PE NORMAL - Vitals Vital signs reviewed: Yes - General General: Alert and oriented X 3, No acute distress - Cardiac Cardiac: RRR, No murmur - Respiratory Respiratory: Other (Rhonchorous at both bases, nonlabored) Results - Vitals Vitals: Vital Signs - 24 hr 03/10/23 13:06 Temperature 36.3 C L Heart Rate 68 Respiratory 20 Rate Blood Pressure 133/91 H O2 Saturation 91 L Oxygen O2 Source [With Activity] Nasal cannula O2 Source [Without Activity] Nasal cannula O2 Source Room air - Rads (name of study) 2 view chest x-ray demonstrates a mild right basilar pneumonia Relevant Findings:: Final report received, EMP independent interpretation of test PD Medical Decision Making - ED course ED course: 87-year-old gentleman with reassuring vital signs who has mild pneumonia on x- ray treated with dual antibiotic therapy. Departure - Departure Disposition: 01 Home, Self Care Clinical Impression: Pneumonia Qualifiers: Pneumonia type: due to unspecified organism Laterality: right Lung location: lower lobe of lung Qualified Code(s): J18.9 - Pneumonia, unspecified organism Condition: Good Record reviewed to determine appropriate education?: Yes Instructions: ED Pneumonia Adult Prescriptions: Albuterol Sulf [Ventolin Hfa Inhaler] 1 - 2 puffs INH Q4HR PRN #1 each PRN Reason: Shortness Of Air/Wheezing Amox/Clav 875/125 [Augmentin] 1 each PO Q12H #10 tablet guaiFENesin/CODEINE [Robitussin AC] 5 - 10 ml PO Q6H PRN #120 ml PRN Reason: Cough Azithromycin [Zithromax] 1 tab PO DAILY #4 tab Comments: I sent your prescriptions electronically to [facility] in [place]. Return for new or worsening symptoms, follow-up with your doctor around Friday or for recheck.. Do not drink or drive while taking codeine-containing cough syrup. Often times when you start antibiotics while you are taking anticoagulants such as Coumadin or warfarin, your INR will go up. You need to have your INR checked frequently while on the antibiotics. Have it checked in 3 days, again in 6 days, and at least weekly while you are on antibiotics. Dose adjustments of your anticoagulants may be necessary.
[2023-03-10 15:42] VITALS: BP 139/94
== END 2023-03-10 15:55 | disposition home or self-care (01) ==
LOC: ED 12:37
DX: J18.9 Pneumonia, unspecified organism (principal); I10 Essential (primary) hypertension; I48.91 Unspecified atrial fibrillation; Z79.01 Long term (current) use of anticoagulants; Z86.718 Personal history of other venous thrombosis and embolism
CPT/HCPCS: 71046; 99283; 99284; A9270

== ENCOUNTER 2023-03-15 10:31 | Emergency (ER) | payer MEDICARE, OTHER ==
--- NOTE | 2023-03-15 10:58 | ED Physician Documentation ---
PD HPI URI - Stated complaint Stated Complaint: SOA, COUGH - Chief complaint Chief Complaint: Resp - History obtained from History obtained from: Patient, Family (spouse) - History of Present Illness Timing - onset: How many weeks ago (2) Timing duration: Weeks (2) Timing details: Gradual onset, Still present (he was seen last week for cough and ill and had CXR showing possible pnemumonia. Rx with augemntin and ZIthroamx 5 days. He says finished the courses. says took the Zpack and then started the Augmentin, so still on that. [employer] cough med helps.) Associated symptoms: Dry cough, Dyspnea. No: Fever (had fever last week, not this.), Productive cough, Chest pain Contributing factors: No: Immunocompromised, COPD / asthma Recently seen: Emergency Dept Review of Systems Constitutional: denies: Myalgias Nose: denies: Rhinorrhea / runny nose, Congestion Throat: denies: Sore throat Respiratory: reports: Cough (with barking and vibrating character and wheezing feeling. Got Albuterol MDI last week and using it regular.) PD PAST MEDICAL HISTORY - Past Medical History Cardiovascular: Congestive heart failure, Hypertension, High cholesterol, Peripheral Vascular Disease, Deep vein thrombosis, Atrial fibrillation Respiratory: Pneumonia Neuro: TIA, Peripheral neuropathy Endocrine/Autoimmune: HyPOthyroidism GI: C.difficile, Diverticulitis : Benign prostate hypertrophy, Retention, Nocturia, Frequency, Other Musculoskeletal: Osteoarthritis Derm: Other - Past Surgical History Past Surgical History: Yes General: Appendectomy, Bowel surgery Ortho: Knee replacement Cardiovascular: Pacemaker HEENT: Tonsil/Adenoidectomy - Present Medications Home Medications: Ambulatory Orders Medication Instructions Recorded Confirmed Atorvastatin Calcium 40 mg PO DAILY 01/15/23 03/15/23 Levothyroxine [Synthroid] 25 mcg PO QDAC 01/15/23 03/15/23 Metoprolol Tartrate [Lopressor] 1 tab PO BID 01/15/23 03/15/23 Tamsulosin [Flomax] 1 cap PO DAILY 01/15/23 03/15/23 Warfarin [Coumadin] 0.5 - 1 tab PO DAILY 01/15/23 03/15/23 oxyBUTYnin chloride [Oxybutynin 1 tab PO DAILY 01/15/23 03/15/23 Chloride] traZODone [Desyrel] 50 mg PO HS 01/15/23 03/15/23 Doxycycline Hyclate 100 mg PO BID 7 Days #20 cap 02/26/23 03/15/23 Mupirocin 2% Oint [Bactroban 2% 1 applic TOP TID #15 gm 02/26/23 03/15/23 Oint] Albuterol Sulf [Ventolin Hfa 1 - 2 puffs INH Q4HR PRN #1 each 03/10/23 03/15/23 Inhaler] Amox/Clav 875/125 [Augmentin] 1 each PO Q12H #10 tablet 03/10/23 03/15/23 guaiFENesin/CODEINE [Robitussin AC] 5 - 10 ml PO Q6H PRN #120 ml 03/10/23 03/15/23 Benzonatate [Tessalon] 100 mg PO TID PRN #20 cap 03/15/23 guaiFENesin/CODEINE [Robitussin AC] 10 ml PO Q6H PRN #480 ml 03/15/23 - Allergies Allergies/Adverse Reactions: Allergies Allergy/AdvReac Type Severity Reaction Status Date / Time No Known Drug Allergies Allergy Verified 02/26/23 11:15 - Social History Does the pt smoke?: No Smoking Status: Never smoker Does the pt drink ETOH?: No Does the pt have substance abuse?: No - Immunizations Immunizations are current?: Yes - POLST Patient has POLST: No PD ED PE NORMAL - Vitals Vital signs reviewed: Yes (93% RA.) - General General: Alert and oriented X 3, No acute distress, Well developed/nourished - Cardiac Cardiac: RRR, No murmur - Respiratory Respiratory: Clear bilaterally (no coarse sounds heard. With coughing, he does have a croup sounding harshness and vibrating character in bronchioles. ) - Abdomen Abdomen: Soft, Non tender - Derm Derm: Normal color, Warm and dry - Extremities Extremities: No edema, No calf tenderness / cord - Neuro Neuro: No motor deficit, Normal speech Results - Vitals Vitals: Vital Signs - 24 hr 03/15/23 03/15/23 10:54 13:00 Temperature 37.2 C 37 C Heart Rate 73 66 Respiratory 20 20 Rate Blood Pressure 149/88 H 123/79 O2 Saturation 93 94 Oxygen O2 Source [With Activity] Nasal cannula O2 Source [Without Activity] Nasal cannula O2 Source Room air - Labs Labs: Laboratory Tests 03/15/23 12:10 INR (Fingerstick) 1.1 - Rads (name of study) chest xray Relevant Findings:: Prelim report reviewed, EMP independent interpretation of test (right lower showing more distinct diaphragm, so better. similar infrahilar infiltrate. Not worse. ), See rad report PD Medical Decision Making - ED course Complexity details: reviewed old records, considered differential (has persistent cough and hoarseness. Has croup sounding cough here today. Had Augmentin and Zpack courses. CXR improved. Will treat for cough and inflammation. He says the codeine cough med helped. Can Rx and add Tessalon. ), d/w patient, d/w family (spouse) Departure - Departure Disposition: Home, Self Care Clinical Impression: Persistent cough, History of recent pneumonia Condition: Stable Record reviewed to determine appropriate education?: Yes Follow-Up: JEFFERY GIRALDO PA [Primary Care Provider] - Prescriptions: guaiFENesin/CODEINE [Robitussin AC] 10 ml PO Q6H PRN #480 ml PRN Reason: Cough Benzonatate [Tessalon] 100 mg PO TID PRN #20 cap PRN Reason: Cough Comments: Your chest x-ray appears improved. If you had not completed your prior courses of antibiotics, then it is reasonable to go ahead and finish them. Otherwise I would not say that you necessarily need prolonged antibiotics. The cough and harsh sounding vibration with coughing, are persistent inflammation of the airways. It does not necessarily have to indicate that the infection is still there. Commonly there will be persistent cough for several weeks. I would continue with your albuterol inhaler 2 puffs 3-4 times daily still for another week or so. Continue with the codeine cough medicine as needed for cough. I also added benzonatate medication to help with cough. Continue your other usual medicines. Your Coumadin level/INR today was 1.7. Continue with usual dosing at this point. I sent prescriptions to the [facility] pharmacy in [place]. Discharge Date/Time: 03/15/23 13:12
[2023-03-15] MEDS ORDERED: DEXAMETHASONE 10 MG/ML VIAL PO STA (12:05)
[2023-03-15] MEDS ORDERED: CHERRY SYRUP 10 ML UDC PO ONE (12:05)
[2023-03-15] MEDS ORDERED: BENZONATATE 100 MG CAPSULE PO STA (12:05)
[2023-03-15] MEDS ORDERED: guaiFENesin/CODEINE 5 ML UDC PO STA (12:05)
--- NOTE | 2023-03-15 12:54 | XRAY Report ---
PROCEDURE: Chest 1 View X-Ray INDICATIONS: persistent cough/ s/p pneumonia TECHNIQUE: One view of the chest was acquired. COMPARISON: 03/10/2023 FINDINGS: Surgical changes and devices: Dual-lead left-sided pacemaker in stable position. Lungs and pleura: Right hemidiaphragm elevation. Increased radiopacity in the left infrahilar region . Stable minor right lung base opacity. Mediastinum: Cardiac mediastinal contour is stable. No new central vascular congestion. Bones and chest wall: No suspicious bony lesions. Overlying soft tissues appear unremarkable. IMPRESSION: 1. Minor left infrahilar opacity, more evident compared to the prior study. This may be infectious or aspiration. 2. Right lung base opacity, difficult to assess given elevated right hemidiaphragm, chronic. Reviewed by: Bridget Fernandez MD on 03/15/2023 11:52 AM VERNA Approved by: Bridget Fernandez MD on 03/15/2023 11:52 AM VERNA Station ID: [id number]
[2023-03-15 13:01] VITALS: BP 123/79
== END 2023-03-15 13:12 | disposition home or self-care (01) ==
LOC: ED 10:31
DX: R05.3 Chronic cough (principal); I10 Essential (primary) hypertension; I48.91 Unspecified atrial fibrillation; Z86.718 Personal history of other venous thrombosis and embolism; Z79.01 Long term (current) use of anticoagulants
CPT/HCPCS: 71045; 85610; 99284; A9270; 36415

== ENCOUNTER 2023-05-01 15:53 | Outpatient (CLI) | payer MEDICARE, OTHER ==
--- NOTE | 2023-05-02 12:58 | Ultrasound Report ---
PROCEDURE: Duplex Ext Veins Bilateral INDICATIONS: GEORGE GUARDADO TECHNIQUE: Real-time imaging, as well as color and pulse Doppler interrogation, were performed of the deep veins of both legs from the inguinal ligament to the popliteal fossa. COMPARISON: None FINDINGS: Calf veins are not well seen/compressed. The deep veins are otherwise normally compressibl e, and free of intraluminal thrombus. Color and pulse Doppler demonstrate normal phasic intravascula r flow. There is normal augmentation response to distal compression maneuver. IMPRESSION: Limited examination demonstrating no evidence of bilateral lower extremity DVT. Reviewed by: Leonel Villalpando MD on 05/02/2023 12:56 PM PDT Approved by: Leonel Villalpando MD on 05/02/2023 12:56 PM PDT Station ID: [id number]
--- NOTE | 2023-05-02 14:56 | Ultrasound Report ---
PROCEDURE: Duplex Lwr Ext Arterial Bilat INDICATIONS: INCREASED CAPILLARY FILLING TIME TECHNIQUE: Color and pulse Doppler interrogation was performed of both lower extremity arterial systems, with im age documentation. COMPARISON: None FINDINGS: Right lower extremity: Common femoral artery: 55 cm/sec, with triphasic flow. Deep femoral artery: 34 cm/sec, with biphasic flow. Proximal superficial femoral artery: 65 cm/sec, with triphasic flow. Mid superficial femoral artery: 61 cm/sec, with triphasic flow. Distal superficial femoral artery: 33 cm/sec, with triphasic flow. Popliteal artery: 34 cm/sec, with triphasic flow. Posterior tibial artery: 74 cm/sec, with monophasic and biphasic flow. Anterior tibial artery/dorsalis pedis: 85 cm/sec, with triphasic flow. Wilson-scale imaging description: Mild diffuse plaque Left lower extremity: Common femoral artery: 67 cm/sec, with triphasic flow. Deep femoral artery: 46 cm/sec, with triphasic flow. Proximal superficial femoral artery: 77 cm/sec, with triphasic flow. Mid superficial femoral artery: 79 cm/sec, with biphasic flow. Distal superficial femoral artery: 51 cm/sec, with biphasic flow. Popliteal artery: 41 cm/sec, with biphasic flow. Posterior tibial artery: 67 cm/sec, with monophasic flow. Anterior tibial artery/dorsalis pedis: 40 cm/sec, with biphasic flow. Wilson-scale imaging description: Mild diffuse plaque IMPRESSION: 1. No significant outflow stenosis bilaterally. 2. 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 Reviewed by: Leonel Villalpando MD on 05/02/2023 2:55 PM PDT Approved by: Leonel Villalpando MD on 05/02/2023 2:55 PM PDT Station ID: [id number]
--- NOTE | 2023-05-02 14:58 | Ultrasound Report ---
PROCEDURE: Ankle Brachial Index INDICATIONS: ABNML RESULT OF OTHER CARDIOVASCULAR FUNCTION STUDY TECHNIQUE: Ankle-brachial indices were obtained bilaterally and recorded. COMPARISONS: 12/23/2022 FINDINGS: Right ankle brachial index (MEREDITH): 1.2 Left ankle brachial index (MEREDITH): 0.9 IMPRESSION: No evidence of arterial insufficiency to the bilateral lower extremities. Reviewed by: Leonel Villalpando MD on 05/02/2023 2:56 PM PDT Approved by: Leonel Villalpando MD on 05/02/2023 2:56 PM PDT Station ID: [id number]
== END 2023-05-01 15:54 | disposition home or self-care (01) ==
LOC: DI 15:53
PROVIDERS: ATTEND Nurse Practitioner Family
DX: R94.39 Abnormal result of other cardiovascular function study (principal); I87.2 Venous insufficiency (chronic) (peripheral)
CPT/HCPCS: 93922; 93925; 93970

== ENCOUNTER 2023-06-13 12:17 | Outpatient (CLI) | payer MEDICARE, OTHER ==
--- NOTE | 2023-06-13 13:29 | XRAY Report ---
PROCEDURE: Ankle 3 View RT INDICATIONS: LT TOE ULCER/RT ANKLE ULCER TECHNIQUE: 3 views of the ankle were acquired. COMPARISON: None FINDINGS: Bones: No fractures or dislocations. Ankle mortise is normally aligned. No suspicious bony lesions . Tibiotalar fusion is present. Hardware is intact without evidence of hardware fracture or peripro sthetic lucency to suggest loosening. Arthritic changes are present at the tibiotalar joint space. No erosive changes. Soft tissues: No tibiotalar joint effusion. Achilles tendon appears normal. IMPRESSION: Tibiotalar fusion. No erosive changes to suggest osteomyelitis. Reviewed by: Iveth Christianson MD on 06/13/2023 1:28 PM PDT Approved by: Iveth Christianson MD on 06/13/2023 1:28 PM PDT Station ID: [id number]
--- NOTE | 2023-06-13 13:30 | XRAY Report ---
PROCEDURE: Toe(s) LT INDICATIONS: LT TOE ULCER/RT ANKLE ULCER TECHNIQUE: 3 views of the left toe(s) acquired. COMPARISON: None FINDINGS: Bones: No fractures or dislocations. No suspicious bony lesions. There is been resection of the fir st distal phalanx. Scattered IP degenerative narrowing is present. No definitive osseous erosions. Soft tissues: No suspicious soft tissue densities. IMPRESSION: No definitive erosions to suggest osteomyelitis. Reviewed by: Iveth Christianson MD on 06/13/2023 1:29 PM PDT Approved by: Iveth Christianson MD on 06/13/2023 1:29 PM PDT Station ID: [id number]
== END 2023-06-13 12:18 | disposition home or self-care (01) ==
LOC: DI 12:17
PROVIDERS: ATTEND Family Medicine
DX: L97.529 Non-pressure chronic ulcer of other part of left foot with unspecified severity (principal); L98.499 Non-pressure chronic ulcer of skin of other sites with unspecified severity; M24.671 Ankylosis, right ankle
CPT/HCPCS: 73660

== ENCOUNTER 2023-12-25 12:59 | Emergency (ER) | payer MEDICARE, OTHER ==
[2023-12-25 13:28] VITALS: O2SAT 95
--- NOTE | 2023-12-25 14:52 | ED Physician Documentation ---
History of Present Illness - Stated complaint Stated Complaint: RT HEEL PAIN - Chief complaint Chief Complaint: Ext Problem - History obtained from History obtained from: Patient - History of Present Illness Timing: How many weeks ago Pain level max: 4 Pain level now: 3 - Additonal information Additional information: Patient is an 88-year-old male who presents to the emergency department stating that he has a wound to the right heel for the past 3 weeks. He states he has had some pain in this area. He saw his PCP who put him on gabapentin. He states that it seems to be more swollen today. Worse with walking, better with rest. No fevers. No chills. No drainage. He had seen wound care previously for a wound on the right lateral malleolus. That wound is now healed. PD PAST MEDICAL HISTORY - Past Medical History Cardiovascular: Congestive heart failure, Hypertension, High cholesterol, Peripheral Vascular Disease, Deep vein thrombosis, Atrial fibrillation Respiratory: Pneumonia Neuro: TIA, Peripheral neuropathy Endocrine/Autoimmune: HyPOthyroidism GI: C.difficile, Diverticulitis : Benign prostate hypertrophy, Retention, Nocturia, Frequency, Other Musculoskeletal: Osteoarthritis Derm: Other - Past Surgical History Past Surgical History: Yes General: Appendectomy, Bowel surgery Ortho: Knee replacement Cardiovascular: Pacemaker HEENT: Tonsil/Adenoidectomy - Present Medications Home Medications: Ambulatory Orders Medication Instructions Recorded Confirmed Levothyroxine [Synthroid] 25 mcg PO QDAC 01/15/23 12/25/23 Metoprolol Tartrate [Lopressor] 1 tab PO DAILY 01/15/23 12/25/23 Tamsulosin [Flomax] 1 cap PO DAILY 01/15/23 12/25/23 oxyBUTYnin chloride [Oxybutynin 1 tab PO DAILY 01/15/23 12/25/23 Chloride] traZODone [Desyrel] 50 mg PO HS 01/15/23 12/25/23 Albuterol Sulf [Ventolin Hfa 1 - 2 puffs INH Q4HR PRN #1 each 03/10/23 12/25/23 Inhaler] Aspirin [Aspirin EC] 81 mg PO DAILY 06/12/23 12/25/23 Doxycycline Monohydrate 100 mg PO BID #20 cap 12/25/23 cephALEXin [Keflex] 500 mg PO Q6H #40 cap 12/25/23 - Allergies Allergies/Adverse Reactions: Allergies Allergy/AdvReac Type Severity Reaction Status Date / Time No Known Drug Allergies Allergy Verified 12/25/23 13:19 - Social History Does the pt smoke?: No Smoking Status: Never smoker Does the pt drink ETOH?: No Does the pt have substance abuse?: No - Immunizations Immunizations are current?: Yes - POLST Patient has POLST: No PD ED PE NORMAL - Vitals Vital signs reviewed: Yes - General General: Alert and oriented X 3, No acute distress - HEENT HEENT: Moist mucous membranes - Cardiac Cardiac: RRR - Respiratory Respiratory: No respiratory distress, Clear bilaterally - Abdomen Abdomen: Soft, Non tender, Non distended - Derm Derm: Warm and dry - Extremities Extremities: Other (r foot - There is erythema near the heel, approximately a 5 x 4 cm area with a small amount of fluctuance near a small wound on the heel. No drainage. There is diffuse tenderness. No crepitus.) - Neuro Neuro: Alert and oriented X 3 - Psych Psych: Normal mood, Normal affect Results - Vitals Vitals: Vital Signs - 24 hr 12/25/23 12/25/23 13:12 16:19 Temperature 36.4 C L Heart Rate 60 65 Respiratory 16 18 Rate Blood Pressure 127/65 124/74 O2 Saturation 95 95 Oxygen O2 Source [With Activity] Nasal cannula O2 Source [Without Activity] Nasal cannula O2 Source Room air - Rads (name of study) R ankle xray Relevant Findings:: Final report received, See rad report PD Medical Decision Making - ED course Complexity details: reviewed results, re-evaluated patient, considered differential, d/w patient ED course: No acute findings on x-ray. Patient has cellulitis to the right posterior heel. There was a small area of fluctuance, a 27-gauge needle was used to instill 1% buffered lidocaine. excellent anesthesia acheived. There was no purulent drainage. Patient refuses any further exploration of this. Does not want an incision. Counseled that we could miss further infection, patient understands the risks including sepsis, septic joint, amputation, etc. We will place the patient on Keflex and doxycycline. Have him follow-up closely with his PCP. He will return in 2 days if he is worsening or failing to improve. Will return sooner for fevers or any other new or worrisome symptoms. Patient counseled regarding signs and symptoms for which I believe and urgent re-evaluation would be necessary. Patient with good understanding of and agreement to plan and is comfortable going home at this time This document was made in part using voice recognition software. While efforts are made to proofread this document, sound alike and grammatical errors may occur. Departure - Departure Disposition: 01 Home, Self Care Clinical Impression: Cellulitis Qualifiers: Site of cellulitis: extremity Site of cellulitis of extremity: lower extremity Laterality: right Qualified Code(s): L03.115 - Cellulitis of right lower limb Condition: Good Instructions: ED Infec Skin Cellulitis Follow-Up: Reji Jacobs MD [Primary Care Provider] - Within 1 week Prescriptions: Doxycycline Monohydrate 100 mg PO BID #20 cap cephALEXin [Keflex] 500 mg PO Q6H #40 cap Comments: Your prescriptions were sent to [facility]. Please take all antibiotics until gone. Please return if you worsen. Please follow-up with your doctor in 1 week for a wound check. Forms: PCP List Discharge Date/Time: 12/25/23 16:20
[2023-12-25] MEDS: BUFFERED LIDOCAINE 10 ML SYRINGE SUBQ STA (16:00)
[2023-12-25] MEDS: DOXYCYCLINE 100 MG TABLET PO STA (16:02)
[2023-12-25] MEDS: cephALEXin 250 MG CAPSULE PO STA (16:02)
--- NOTE | 2023-12-25 16:05 | XRAY Report ---
PROCEDURE: Ankle 3+V RT INDICATIONS: pain to entire heel, post healed wound 1 week ago TECHNIQUE: 3 views of the ankle were acquired. COMPARISON: 06/13/2023 FINDINGS: Bones: Tibiotalar instrumented arthrodesis. There is a focal failure of tibiotalar screw at the leve l of the joint space. Additional instrumentation intact. Appropriate osseous mineralization. Diffuse atherosclerotic small vessel vascular calcification. Soft tissues: Unremarkable without significant soft tissue swelling. No radiopaque foreign body. IMPRESSION: Tibiotalar instrumented arthrodesis. Failed single screw noted with screw fracture at the level of th e tibiotalar joint. Additional 2 screws intact. Diffuse small vessel atherosclerotic vascular calcification. Reviewed by: Spenser Lovelace MD on 12/25/2023 3:04 PM AKST Approved by: Spenser Lovelace MD on 12/25/2023 3:04 PM AKST Station ID: [id number]
[2023-12-25 16:24] VITALS: BP 124/74
== END 2023-12-25 16:20 | disposition home or self-care (01) ==
LOC: ED 12:59
DX: L03.115 Cellulitis of right lower limb (principal); I11.0 Hypertensive heart disease with heart failure; I50.9 Heart failure, unspecified; E78.00 Pure hypercholesterolemia, unspecified; I49.3 Ventricular premature depolarization; I48.91 Unspecified atrial fibrillation; Z86.718 Personal history of other venous thrombosis and embolism; Z86.73 Personal history of transient ischemic attack (TIA), and cerebral infarction without residual deficits; G62.9 Polyneuropathy, unspecified; E03.9 Hypothyroidism, unspecified; N40.0 Benign prostatic hyperplasia without lower urinary tract symptoms; M19.90 Unspecified osteoarthritis, unspecified site; Z79.899 Other long term (current) drug therapy
CPT/HCPCS: 73610; 99283; A9270

== ENCOUNTER 2023-12-27 14:03 | Emergency (ER) | payer MEDICARE, OTHER ==
[2023-12-27 14:56] VITALS: BP 160/79; O2SAT 95
--- NOTE | 2023-12-27 15:30 | ED Physician Documentation ---
PD HPI WOUND RECHECK - Stated complaint Stated Complaint: HEEL PX/FOLLOWUP - Chief complaint Chief Complaint: Wound - Histroy obtained from History obtained from: Patient - History of Present Illness Location: Other (R heel) Pain level max: 7 Pain level now: 2 Associated symptoms: Redness, Swelling Recently seen: Not recently seen - Additional information Additional information: 88-year-old male presents to the emergency department after being seen here 2 days ago for cellulitis of the right foot along with a small wound on the heel. He has had continued mild drainage from the area. The swelling and redness have nearly resolved. The pain has gone from a 6 or 7 out of 10 down to a 2. He feels overall much better. No fevers. No chills. He has been taking both antibiotics as prescribed. Review of Systems Constitutional: denies: Fever, Chills GI: denies: Vomiting, Diarrhea PD PAST MEDICAL HISTORY - Past Medical History Cardiovascular: Congestive heart failure, Hypertension, High cholesterol, Peripheral Vascular Disease, Deep vein thrombosis, Atrial fibrillation Respiratory: Pneumonia Neuro: TIA, Peripheral neuropathy Endocrine/Autoimmune: HyPOthyroidism GI: C.difficile, Diverticulitis : Benign prostate hypertrophy, Retention, Nocturia, Frequency, Other Musculoskeletal: Osteoarthritis Derm: Other - Past Surgical History Past Surgical History: Yes General: Appendectomy, Bowel surgery Ortho: Knee replacement Cardiovascular: Pacemaker HEENT: Tonsil/Adenoidectomy - Present Medications Home Medications: Ambulatory Orders Medication Instructions Recorded Confirmed Levothyroxine [Synthroid] 25 mcg PO QDAC 01/15/23 12/27/23 Metoprolol Tartrate [Lopressor] 1 tab PO DAILY 01/15/23 12/27/23 Tamsulosin [Flomax] 1 cap PO DAILY 01/15/23 12/27/23 oxyBUTYnin chloride [Oxybutynin 1 tab PO DAILY 01/15/23 12/27/23 Chloride] traZODone [Desyrel] 50 mg PO HS 01/15/23 12/27/23 Albuterol Sulf [Ventolin Hfa 1 - 2 puffs INH Q4HR PRN #1 each 03/10/23 12/27/23 Inhaler] Aspirin [Aspirin EC] 81 mg PO DAILY 06/12/23 12/27/23 Doxycycline Monohydrate 100 mg PO BID #20 cap 12/25/23 12/27/23 cephALEXin [Keflex] 500 mg PO Q6H #40 cap 12/25/23 12/27/23 - Allergies Allergies/Adverse Reactions: Allergies Allergy/AdvReac Type Severity Reaction Status Date / Time No Known Drug Allergies Allergy Verified 12/27/23 14:42 - Social History Does the pt smoke?: No Smoking Status: Never smoker Does the pt drink ETOH?: No Does the pt have substance abuse?: No - Immunizations Immunizations are current?: Yes - POLST Patient has POLST: No PD ED PE NORMAL - Vitals Vital signs reviewed: Yes - General General: Alert and oriented X 3, No acute distress - Derm Derm: Warm and dry - Extremities Extremities: Other (Small wound present on the right heel. Largely unchanged from prior. There is decreased erythema and swelling to the medial aspect of the heel and ankle. Full range of motion of the joint without any pain. No purulent drainage) - Neuro Neuro: Alert and oriented X 3 Results - Vitals Vitals: Vital Signs - 24 hr 12/27/23 14:38 Temperature 36.5 C Heart Rate 67 Respiratory 16 Rate Blood Pressure 160/79 H O2 Saturation 95 Oxygen O2 Source [With Activity] Nasal cannula O2 Source [Without Activity] Nasal cannula O2 Source Room air PD Medical Decision Making - ED course Complexity details: considered differential, d/w patient ED course: Patient appears to be improving on antibiotics. We will have him follow-up closely with his PCP. He does have a small wound on the heel. This appears similar to 2 days ago. May end up needing wound care referral from PCP. We will continue antibiotics. Patient counseled regarding signs and symptoms for which I believe and urgent re-evaluation would be necessary. Patient with good understanding of and agreement to plan and is comfortable going home at this time This document was made in part using voice recognition software. While efforts are made to proofread this document, sound alike and grammatical errors may occur. Departure - Departure Disposition: 01 Home, Self Care Clinical Impression: Cellulitis Qualifiers: Site of cellulitis: extremity Site of cellulitis of extremity: lower extremity Laterality: right Qualified Code(s): L03.115 - Cellulitis of right lower limb Open wound of right heel Qualifiers: Encounter type: initial encounter Qualified Code(s): S91.301A - Unspecified open wound, right foot, initial encounter Condition: Good Instructions: ED Infec Skin Cellulitis Follow-Up: Reji Jacobs MD [Primary Care Provider] - Within 1 week Comments: Please follow-up with Dr. Jacobs this week as scheduled. Please continue the antibiotics you were prescribed previously. The redness and swelling are both decreasing in size. You do have some slight drainage from the heel wound that was present 2 days ago. We need to follow this closely to ensure there is no worsening infection. Please return for worsening pain, fevers or other new or worrisome symptoms. Forms: PCP List Discharge Date/Time: 12/27/23 15:33
== END 2023-12-27 15:33 | disposition home or self-care (01) ==
LOC: ED 14:03
DX: S91.301A Unspecified open wound, right foot, initial encounter (principal); L03.115 Cellulitis of right lower limb; X58.XXXA Exposure to other specified factors, initial encounter; I11.0 Hypertensive heart disease with heart failure; I50.9 Heart failure, unspecified; E78.00 Pure hypercholesterolemia, unspecified; I73.9 Peripheral vascular disease, unspecified; I48.91 Unspecified atrial fibrillation; E03.9 Hypothyroidism, unspecified; Z86.718 Personal history of other venous thrombosis and embolism; Z86.73 Personal history of transient ischemic attack (TIA), and cerebral infarction without residual deficits; G62.9 Polyneuropathy, unspecified; N40.0 Benign prostatic hyperplasia without lower urinary tract symptoms; Z79.82 Long term (current) use of aspirin; Z79.899 Other long term (current) drug therapy
CPT/HCPCS: 99281; 99283

== ENCOUNTER 2024-01-05 08:00 | Outpatient (CLI) | payer MEDICARE, OTHER | END 2024-01-05 08:01 | disposition home or self-care (01) | LOC: LAB.R 08:00 | PROVIDERS: ATTEND Nurse Practitioner | DX: S91.301A Unspecified open wound, right foot, initial encounter (principal) | CPT/HCPCS: 87070; 87205 ==

== ENCOUNTER 2024-01-30 10:37 | Emergency (ER) | payer MEDICARE, OTHER ==
--- NOTE | 2024-01-30 10:45 | ED Physician Documentation ---
PD HPI Fall - Stated complaint Stated Complaint: NECK PX,GLF - History obtained from History obtained from: Patient - History of Present Illness Mechanism of injury: Tripped Fall distance: Sitting position (He was getting up from bed and tripped on a blanket and fell forward to the right onto his right arm and shoulder with a twisting of the neck. Pain in the right shoulder and right side of the neck. He was concerned as he had a dens fracture with nonunion about 6 years ago in [place].) Where injury occurred: Home Timing - onset: How many days ago (5) Injury(ies) location: Neck, Right Upper Extremity (posterior shoulder area) Quality of pain: Pain, Aching Worsens with: Movement Contributing factors: No: Anticoagulated (previously on Coumadin. Currently just ASA daily.) Review of Systems Constitutional: denies: Fever, Chills Skin: denies: Abrasion (s), Laceration (s) Neurologic: denies: Focal weakness, Numbness, Confused, Headache, Head injury PD PAST MEDICAL HISTORY - Past Medical History Cardiovascular: Congestive heart failure, Hypertension, High cholesterol, Peripheral Vascular Disease, Deep vein thrombosis, Atrial fibrillation Respiratory: Pneumonia Neuro: TIA, Peripheral neuropathy Endocrine/Autoimmune: HyPOthyroidism GI: C.difficile, Diverticulitis : Benign prostate hypertrophy, Retention, Nocturia, Frequency, Other Musculoskeletal: Osteoarthritis Derm: Other - Past Surgical History Past Surgical History: Yes General: Appendectomy, Bowel surgery Ortho: Knee replacement Cardiovascular: Pacemaker HEENT: Tonsil/Adenoidectomy - Present Medications Home Medications: Ambulatory Orders Medication Instructions Recorded Confirmed Levothyroxine [Synthroid] 25 mcg PO QDAC 01/15/23 01/30/24 Metoprolol Tartrate [Lopressor] 1 tab PO DAILY 01/15/23 01/30/24 oxyBUTYnin chloride [Oxybutynin 1 tab PO DAILY 01/15/23 01/30/24 Chloride] traZODone [Desyrel] 50 mg PO HS 01/15/23 01/30/24 Aspirin [Aspirin EC] 81 mg PO DAILY 06/12/23 01/30/24 Atorvastatin Calcium 40 mg PO DAILY 01/30/24 01/30/24 Lidocaine Patch 5% [Lidoderm Patch] 1 patch TOP DAILY PRN #10 patch 01/30/24 Meloxicam [Mobic] 7.5 mg PO BID 10 Days #20 tablet 01/30/24 - Allergies Allergies/Adverse Reactions: Allergies Allergy/AdvReac Type Severity Reaction Status Date / Time No Known Drug Allergies Allergy Verified 01/30/24 11:02 - Social History Does the pt smoke?: No Smoking Status: Never smoker Does the pt drink ETOH?: No Does the pt have substance abuse?: No - Immunizations Immunizations are current?: Yes - POLST Patient has POLST: No PD ED PE NORMAL - Vitals Vital signs reviewed: Yes - General General: Alert and oriented X 3, No acute distress (wearing a soft color he got on [employer] and started wearing it yesterday. ), Well developed/nourished - HEENT HEENT: Atraumatic - Neck Neck: Supple, no meningeal sign, No adenopathy, Other (right neck with tenderness extending to suprascapular area. ) - Derm Derm: Normal color, Warm and dry - Extremities Extremities: No tenderness to palpate, No calf tenderness / cord, Other (right shoulder with some posterior tenderness. No deformity. Rotator cuff motions against resisance are strong, with some pain elicited. ) - Neuro Neuro: Alert and oriented X 3, No motor deficit, No sensory deficit, Normal speech Results - Vitals Vitals: Vital Signs - 24 hr 01/30/24 01/30/24 10:56 11:09 Temperature 36.5 C Heart Rate 60 66 Respiratory 20 20 Rate Blood Pressure 135/80 H 134/83 H O2 Saturation 96 97 Oxygen O2 Source [With Activity] Nasal cannula O2 Source [Without Activity] Nasal cannula O2 Source Room air - Rads (name of study) cervical Spine CT Relevant Findings:: Prelim report reviewed, Discussed with rads (Dr. 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 ), EMP independent interpretation of test Departure - Departure Disposition: 01 Home, Self Care Clinical Impression: Fall from slip, trip, or stumble, Right shoulder strain, Cervical strain, acute Condition: Stable Record reviewed to determine appropriate education?: Yes Instructions: ED Sprain Strain Neck Follow-Up: Reji Jacobs MD [Primary Care Provider] - Prescriptions: Lidocaine Patch 5% [Lidoderm Patch] 1 patch TOP DAILY PRN #10 patch PRN Reason: pain Meloxicam [Mobic] 7.5 mg PO BID 10 Days #20 tablet Comments: Your CT scan report (and talking to the radiologist directly) shows the apparent old fracture with incomplete healing but no signs of acute fracture at the dens nor other areas. Presume you have some straining of the neck muscles and could be some arthritic flareup of the neck as well. The shoulder would have a muscular component to the injury as your exam does not suggest fracture nor dislocation. At this point I would suggest some heat stretching and potentially massage for the neck and shoulder in particular but to go gently with it. You have had rotator cuff problems with the shoulder and had been to physical therapy in the past. I would do those exercises for the shoulder gently at first and progress as tolerated. Anti-inflammatory such as meloxicam twice daily with food for the next 7 to 10 days. Add Tylenol 500 to 650 mg every 4-6 hours if needed for pain. You could try topical treatments such as a lidocaine patch in the particularly the sore areas around the neck or shoulder. I would not anticipate improvement all by itself with these but may add enough benefit. Recheck if not improving well over the next several days to week or so. I sent your prescriptions to the [facility] pharmacy in [place]. You can wear the collar that you got online if it feels helpful but you do not need to be wearing it to get better. If you are wearing it, then be sure to have it off at times with gentle range of motion and heat for the next so does not get too stiff with that. I printed off a copy of your CT report and some outside energy sales representatives picture images as you requested.
--- NOTE | 2024-01-30 13:15 | CT Report ---
PROCEDURE: Cervical Spine WO INDICATIONS: fall week ago; neck pain; dens fx 6 yrs ago patient states that he has a chronic unheal ed dens fracture. TECHNIQUE: Noncontrast 3 mm thick sections acquired from the skull base to the T4 level. Sagittal and coronal r eformats were then constructed. For radiation dose reduction, the following was used: automated exp osure control, adjustment of mA and/or kV according to patient size. COMPARISON: None. FINDINGS: Image quality: Excellent. Bones: There is a mildly distracted dens fracture. It is likely chronic. The bony matrix appears some what sclerotic in the subjacent bone to the fracture, which is likely a chronic reaction to fracture. There is a small amount of air present within the space between the 2 fragments of the dens. There i s a prominent pannus anteriorly and posteriorly, likely related to inflammation from a pseudoarticula tion. No other fractures or dislocations are identified. There is relatively mild cervical spondyliti c change for patient age. Visualized superior ribs are intact. Soft tissues: Prevertebral soft tissues are normal in thickness. No paravertebral hematomas. No ap ical pneumothoraces. IMPRESSION: 1. A mildly distracted dens fracture is likely a chronic finding in this patient with a given history of chronic nonhealed dens fracture, based on its appearance on today's CT. 2. No other cervical fractures or dislocations. 3. Mild cervical spondylitic change. Reviewed by: Bryce Bella MD on 01/30/2024 1:13 PM PDT Approved by: Bryce Bella MD on 01/30/2024 1:13 PM PDT Station ID: [id number]
[2024-01-30 13:32] VITALS: O2SAT 95
[2024-01-30 13:51] VITALS: BP 134/75
== END 2024-01-30 13:47 | disposition home or self-care (01) ==
LOC: ED 10:37
DX: S46.911A Strain of unspecified muscle, fascia and tendon at shoulder and upper arm level, right arm, initial encounter (principal); S16.1XXA Strain of muscle, fascia and tendon at neck level, initial encounter; W01.0XXA Fall on same level from slipping, tripping and stumbling without subsequent striking against object, initial encounter; I11.0 Hypertensive heart disease with heart failure; I50.9 Heart failure, unspecified; E78.00 Pure hypercholesterolemia, unspecified; I48.91 Unspecified atrial fibrillation; I73.9 Peripheral vascular disease, unspecified; Z86.73 Personal history of transient ischemic attack (TIA), and cerebral infarction without residual deficits; E03.9 Hypothyroidism, unspecified; N40.0 Benign prostatic hyperplasia without lower urinary tract symptoms; G62.9 Polyneuropathy, unspecified; Z86.718 Personal history of other venous thrombosis and embolism; Z79.899 Other long term (current) drug therapy
CPT/HCPCS: 99284

== ENCOUNTER 2024-02-06 19:18 | Inpatient (IN) | payer MEDICARE, OTHER ==
[2024-02-06] MEDS: SODIUM CHLORIDE 0.9% 1,000 ML IV STA ×2 (19:23→20:00)
[2024-02-06 20:01] LABS: BASOPHILS % (AUTO) 0.2 %; EOSINOPHILS % (AUTO) 0.1 %; HCT - HEMATOCRIT 40.7 % (42.0-52.0); HGB - HEMOGLOBIN 13.3 g/dL (14.0-18.0); LYMPHOCYTES # (AUTO) 0.3 10^3/uL (1.5-3.5); LYMPHOCYTES % (AUTO) 2.2 %; MEAN CORPUSCULAR HGB CONC 32.7 g/dL (32.0-36.0); MEAN CORPUSCULAR VOLUME 104.1 fL (80.0-94.0); MEAN PLATELET VOLUME 9.1 fL (7.4-11.4); MONOCYTES # (AUTO) 0.6 10^3/uL (0.0-1.0); MONOCYTES % (AUTO) 4.9 %; NEUTROPHILS # (AUTO) 11.2 10^3/uL (1.5-6.6); NEUTROPHILS % (AUTO) 91.9 %; PLT - PLATELET COUNT 141 10^3/uL (130-450); RED BLOOD COUNT 3.91 10^6/uL (4.70-6.10); RED CELL DISTRIBUTION WIDTH 12.7 % (12.0-15.0); WHITE BLOOD COUNT 12.1 x10^3/uL (4.8-10.8)
[2024-02-06 20:12] LABS: PARTIAL THROMBOPLASTIN TIME 32.8 secs (24.9-33.3)
[2024-02-06 20:16] LABS: ALBUMIN 3.4 g/dL (3.2-5.5); ALBUMIN/GLOBULIN RATIO 1.5 (1.0-2.2); ALKALINE PHOSPHATASE 46 IU/L (42-121); ALT ALANINE AMINOTRANSFERASE 6 IU/L (10-60); AST ASPARTATE AMINOTRANSFERASE 15 IU/L (10-42); BILIRUBIN,TOTAL 0.9 mg/dL (0.2-1.0); BUN - BLOOD UREA NITROGEN 23 mg/dL (6-20); CALCIUM 8.6 mg/dL (8.5-10.3); CARBON DIOXIDE - CO2 22 mmol/L (21-32); CHLORIDE 109 mmol/L (101-111); CREATININE 1.2 mg/dL (0.6-1.3); GFR - MDRD 57 (>89); GLUCOSE 95 mg/dL (74-104); INR 1.2 (0.8-1.2); POTASSIUM 3.9 mmol/L (3.5-4.5); PT - PROTHROMBIN TIME 13.3 secs (9.9-12.6); SODIUM 137 mmol/L (135-145); TOTAL PROTEIN 5.7 g/dL (6.4-8.9)
[2024-02-06 20:19] LABS: LIPASE < 10 U/L (11-82)
[2024-02-06 20:25] LABS: BILIRUBIN,URINE SMALL (NEGATIVE); GLUCOSE, URINE (UA) NEGATIVE (NEGATIVE); KETONES,URINE (UA) NEGATIVE (NEGATIVE); LEUKOCYTE ESTERASE, URINE NEGATIVE (NEGATIVE); NITRITE,URINE NEGATIVE (NEGATIVE); OCCULT BLOOD,URINE NEGATIVE (NEGATIVE); PROTEIN,URINE NEGATIVE (NEGATIVE); UROBILINOGEN,URINE 0.2 (NORMAL) E.U./dL (NORMAL)
[2024-02-06 20:27] LABS: CLARITY,URINE CLEAR (CLEAR)
--- NOTE | 2024-02-06 21:27 | XRAY Report ---
PROCEDURE: Chest 1V INDICATIONS: fever TECHNIQUE: One view of the chest was acquired. COMPARISON: 03/15/2023. FINDINGS: Surgical changes and devices: Left chest wall pacemaker Lungs and pleura: No pleural effusions or pneumothorax. Possible left basilar opacity. Low lung volu mes. Mediastinum: Mediastinal contours appear normal. Heart size is normal. Bones and chest wall: No suspicious bony lesions. Overlying soft tissues appear unremarkable. IMPRESSION: Possible left basilar opacity, may represent infection. Reviewed by: Gerard Gross MD on 02/06/2024 9:26 PM PDT Approved by: Gerard Gross MD on 02/06/2024 9:26 PM PDT Station ID: [id number]
--- NOTE | 2024-02-06 21:29 | XRAY Report ---
PROCEDURE: Foot 1-2V RT INDICATIONS: R heel wound TECHNIQUE: 2 views of the foot were acquired. COMPARISON: 12/25/2023. FINDINGS: Bones: No fractures or dislocations. Ankle hardware is partially evaluated is stable appearance of a fractured screw. No suspicious bony lesions. Soft tissues: No tibiotalar joint effusion. Achilles tendon appears normal. Atherosclerotic vascula r calcifications. IMPRESSION: 1.No acute bony abnormality. No definite radiographic evidence of osteomyelitis. 2.Redemonstration of ankle hardware with a fractured screw. Reviewed by: Gerard Guevara MD on 02/06/2024 9:28 PM PDT Approved by: Gerard Guevara MD on 02/06/2024 9:28 PM PDT Station ID: [id number]
--- NOTE | 2024-02-06 21:42 | ED Physician Documentation ---
History of Present Illness - Stated complaint Stated Complaint: GEN WEAKNESS - Chief complaint Chief Complaint: General - History obtained from History obtained from: Patient, Family, EMS - History of Present Illness Timing: How many days ago (2) Pain level max: 0 Pain level now: 0 - Additonal information Additional information: 88-year-old male presents to the emergency department with bodyaches, cough and feeling generally unwell for the past 24 hours. 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 He sees wound care at [facility] in [place]. He is not on blood thinners. He is found to be hypoxic with EMS. Placed on oxygen. Has had a wet cough for the past several days as well. Not currently on antibiotics. No abdominal pain, nausea, vomiting, diarrhea. No urinary symptoms. Has had UTIs in the past. Review of Systems Constitutional: reports: Chills, Myalgias. denies: Fever Ears: denies: Ear pain Nose: reports: Rhinorrhea / runny nose. denies: Congestion Throat: denies: Sore throat Cardiac: denies: Chest pain / pressure Respiratory: reports: Dyspnea, Cough GI: denies: Abdominal Pain, Vomiting, Diarrhea : denies: Dysuria Skin: denies: Rash Musculoskeletal: denies: Neck pain, Back pain PD PAST MEDICAL HISTORY - Past Medical History Cardiovascular: Congestive heart failure, Hypertension, High cholesterol, Peripheral Vascular Disease, Deep vein thrombosis, Atrial fibrillation Respiratory: Pneumonia Neuro: TIA, Peripheral neuropathy Endocrine/Autoimmune: HyPOthyroidism GI: C.difficile, Diverticulitis : Benign prostate hypertrophy, Retention, Nocturia, Frequency, Other Musculoskeletal: Osteoarthritis Derm: Other - Past Surgical History Past Surgical History: Yes General: Appendectomy, Bowel surgery Ortho: Knee replacement Cardiovascular: Pacemaker HEENT: Tonsil/Adenoidectomy - Present Medications Home Medications: Ambulatory Orders Medication Instructions Recorded Confirmed Levothyroxine [Synthroid] 25 mcg PO QDAC 01/15/23 02/06/24 Metoprolol Tartrate [Lopressor] 1 tab PO DAILY 01/15/23 02/06/24 oxyBUTYnin chloride [Oxybutynin 1 tab PO DAILY 01/15/23 02/06/24 Chloride] traZODone [Desyrel] 50 mg PO HS 01/15/23 02/06/24 Aspirin [Aspirin EC] 81 mg PO DAILY 06/12/23 02/06/24 Atorvastatin Calcium 40 mg PO DAILY 01/30/24 02/06/24 Lidocaine Patch 5% [Lidoderm Patch] 1 patch TOP DAILY PRN #10 patch 01/30/24 02/06/24 Meloxicam [Mobic] 7.5 mg PO BID 10 Days #20 tablet 01/30/24 02/06/24 - Allergies Allergies/Adverse Reactions: Allergies Allergy/AdvReac Type Severity Reaction Status Date / Time No Known Drug Allergies Allergy Verified 02/06/24 19:39 - Social History Does the pt smoke?: No Smoking Status: Never smoker Does the pt drink ETOH?: No Does the pt have substance abuse?: No - Immunizations Immunizations are current?: Yes - POLST Patient has POLST: No PD ED PE NORMAL - Vitals Vital signs reviewed: Yes - General General: Alert and oriented X 3, No acute distress - HEENT HEENT: PERRL, Moist mucous membranes - Neck Neck: Supple, no meningeal sign - Cardiac Cardiac: RRR, Strong equal pulses - Respiratory Respiratory: No respiratory distress, Other (Diminished breath sounds and rhonchi bilaterally) - Abdomen Abdomen: Soft, Non tender, Non distended - Back Back: No CVA TTP, No spinal TTP - Derm Derm: Warm and dry - Extremities Extremities: Other (Left lower extremity is normal. Right lower extremity has erythema, warmth and swelling from the toes up to the knee. No streaking.) - Neuro Neuro: Alert and oriented X 3 - Psych Psych: Normal mood, Normal affect Results - Vitals Vitals: Vital Signs - 24 hr 02/06/24 02/06/24 02/06/24 19:23 19:37 20:30 Temperature 36.9 C Heart Rate 75 77 Respiratory 18 17 Rate Blood Pressure 90/40 L 81/51 L O2 Saturation 95 85 L 97 If not protocol 3 : Oxygen Flow, liters/minute 02/06/24 22:00 Temperature Heart Rate 77 Respiratory 17 Rate Blood Pressure 92/57 L O2 Saturation 93 If not protocol 3 : Oxygen Flow, liters/minute Oxygen O2 Source [With Activity] Nasal cannula O2 Source [Without Activity] Nasal cannula O2 Source Nasal cannula - Labs Labs: Laboratory Tests 02/06/24 02/06/24 02/06/24 19:50 19:51 19:51 WBC 12.1 H RBC 3.91 L Hgb 13.3 L Hct 40.7 L MCV 104.1 H MCH 34.0 H MCHC 32.7 RDW 12.7 Plt Count 141 MPV 9.1 Neut # (Auto) 11.2 H Lymph # (Auto) 0.3 L [place] # (Auto) 0.6 Eos # (Auto) 0.0 Baso # (Auto) 0.0 Absolute Nucleated RBC 0.00 Nucleated RBC % 0.0 PT 13.3 H INR 1.2 APTT 32.8 Sodium Potassium Chloride Carbon Dioxide Anion Gap BUN Creatinine Estimated GFR (MDRD) Glucose Lactic Acid Calcium Total Bilirubin AST ALT Alkaline Phosphatase Total Protein Albumin Globulin Albumin/Globulin Ratio Lipase Urine Color Urine Clarity Urine pH Ur Specific Odd Urine Protein Urine Glucose (UA) Urine Ketones Urine Occult Blood Urine Nitrite Urine Bilirubin Urine Urobilinogen Ur Leukocyte Esterase Ur Microscopic Review Urine Culture Comments Nasal Adenovirus (PCR) NOT DETECTED Nasal B. parapertussis DNA (PCR) NOT DETECTED Nasal Coronavir 229E PCR NOT DETECTED Nasal Coronavir HKU1 PCR NOT DETECTED Nasal Coronavir NL63 PCR NOT DETECTED Nasal Coronavir OC43 PCR NOT DETECTED Nasal Enterovir/Rhinovir PCR NOT DETECTED Nasal Influenza B PCR NOT DETECTED Nasal Influenza A PCR NOT DETECTED Nasal Parainfluen 1 PCR NOT DETECTED Nasal Parainfluen 2 PCR NOT DETECTED Nasal Parainfluen 3 PCR NOT DETECTED Nasal Parainfluen 4 PCR NOT DETECTED Nasal RSV (PCR) NOT DETECTED Nasal B.pertussis DNA PCR NOT DETECTED Nasal C.pneumoniae (PCR) NOT DETECTED Angel Human Metapneumo PCR NOT DETECTED Nasal M.pneumoniae (PCR) NOT DETECTED Nasal SARS-CoV-2 (PCR) NOT DETECTED 02/06/24 02/06/24 02/06/24 19:51 19:51 20:23 WBC RBC Hgb Hct MCV MCH MCHC RDW Plt Count MPV Neut # (Auto) Lymph # (Auto) [place] # (Auto) Eos # (Auto) Baso # (Auto) Absolute Nucleated RBC Nucleated RBC % PT INR APTT Sodium 137 Potassium 3.9 Chloride 109 Carbon Dioxide 22 Anion Gap 6.0 BUN 23 H Creatinine 1.2 Estimated GFR (MDRD) 57 L Glucose 95 Lactic Acid 1.6 Calcium 8.6 Total Bilirubin 0.9 AST 15 ALT 6 L Alkaline Phosphatase 46 Total Protein 5.7 L Albumin 3.4 Globulin 2.3 Albumin/Globulin Ratio 1.5 Lipase < 10 L Urine Color DARK YELLOW Urine Clarity CLEAR Urine pH 5.0 Ur Specific Odd >=1.030 H Urine Protein NEGATIVE Urine Glucose (UA) NEGATIVE Urine Ketones NEGATIVE Urine Occult Blood NEGATIVE Urine Nitrite NEGATIVE Urine Bilirubin SMALL H Urine Urobilinogen 0.2 (NORMAL) Ur Leukocyte Esterase NEGATIVE Ur Microscopic Review NOT INDICATED Urine Culture Comments NOT INDICATED Nasal Adenovirus (PCR) Nasal B. parapertussis DNA (PCR) Nasal Coronavir 229E PCR Nasal Coronavir HKU1 PCR Nasal Coronavir NL63 PCR Nasal Coronavir OC43 PCR Nasal Enterovir/Rhinovir PCR Nasal Influenza B PCR Nasal Influenza A PCR Nasal Parainfluen 1 PCR Nasal Parainfluen 2 PCR Nasal Parainfluen 3 PCR Nasal Parainfluen 4 PCR Nasal RSV (PCR) Nasal B.pertussis DNA PCR Nasal C.pneumoniae (PCR) Angel Human Metapneumo PCR Nasal M.pneumoniae (PCR) Nasal SARS-CoV-2 (PCR) - Rads (name of study) cxr Relevant Findings:: Final report received, See rad report PD Medical Decision Making - ED course Complexity details: reviewed results, re-evaluated patient, considered differential, d/w patient, d/w mortgage consultant ED course: 88-year-old male with a left lower lobe pneumonia on chest x-ray. Also has significant cellulitis of the right lower extremity. His white blood cell count is elevated at 12.1. His lactate is normal. Blood pressure improved with IV fluids. Respiratory PCR. Given Rocephin, azithromycin and vancomycin for the pneumonia and cellulitis. Discussed the case with the nighttime hospitalist who accepts. Patient will be admitted for further care of his pneumonia, cellulitis and hypoxia. Maintained on oxygen in the emergency department. Does not use oxygen at home. This document was made in part using voice recognition software. While efforts are made to proofread this document, sound alike and grammatical errors may occur. Departure - Departure Disposition: 66 [facility] DC/Xfer Clinical Impression: Hypoxia Pneumonia Qualifiers: Pneumonia type: due to unspecified organism Laterality: left Lung location: lower lobe of lung Qualified Code(s): J18.9 - Pneumonia, unspecified organism Cellulitis Qualifiers: Site of cellulitis: extremity Site of cellulitis of extremity: lower extremity Laterality: right Qualified Code(s): L03.115 - Cellulitis of right lower limb Condition: Stable
[2024-02-06] MEDS ORDERED: VANCOMYCIN 1 GM VIAL ONE (21:43)
[2024-02-06 21:48] LABS: B. PARAPERTUSSIS- RESP PCR PAN NOT DETECTED; B. PERTUSSIS- RESP PCR PANEL NOT DETECTED; C. PNEUMONIAE- RESP PCR PANEL NOT DETECTED; CORONAVIRUS 229E-RESP PCR NOT DETECTED; CORONAVIRUS HKU1-RESP PCR NOT DETECTED; CORONAVIRUS NL63-RESP PCR NOT DETECTED; CORONAVIRUS OC43-RESP PCR NOT DETECTED; HUMAN METAPNEUMOVIRUS NOT DETECTED; INFLUENZA A- RESP PCR PANEL NOT DETECTED; INFLUENZA B - RESP PCR PANEL NOT DETECTED; M. PNEUMONIAE- RESP PCR PANEL NOT DETECTED; PARAINFLUENZA VIRUS 1 NOT DETECTED; PARAINFLUENZA VIRUS 2 NOT DETECTED; PARAINFLUENZA VIRUS 3 NOT DETECTED; PARAINFLUENZA VIRUS 4 NOT DETECTED; RHINOVIRUS/ENTEROVIRUS NOT DETECTED; RSV- RESP PCR PANEL NOT DETECTED; SARS-CoV-2 -RESP PCR PANEL NOT DETECTED
[2024-02-06] MEDS: cefTRIAXone 1 GM VIAL IVP STA (21:52)
[2024-02-06] MEDS ORDERED: SODIUM CHLORIDE FLUSH 0.9% 10 ML SYRINGE IVP PRN (22:02)
[2024-02-06] MEDS: VANCOMYCIN INJ 1.5 GM in SODIUM CHLORIDE 0.9% 500 ML IV STA (22:02)
[2024-02-06] MEDS ORDERED: ONDANSETRON 4 MG/2 ML VIAL IVP PRN (22:02)
[2024-02-06] MEDS: AZITHROMYCIN INJ 500 MG in SODIUM CHLORIDE 0.9% 250 ML IV STA (22:04)
[2024-02-06] MEDS: ACETAMINOPHEN 325 MG TABLET PO STA (22:46)
--- NOTE | 2024-02-06 22:49 | HISTORY & PHYSICAL EXAMINATION ---
Chief Complaint - Chief Complaint Chief Complaint: weakness History of Present Illness - History of Present Illness HPI Comment/Other: 89 y old male with PMH HTN, hyperlipidemia, hypothyroidism, A fib, DVT, hypothyroidism came to ER with c/o weakness for 1 day. Pt also c/o cough, shortness of breath. Denies fever, chest pain, nausea, vomiting, diarrhea, constipation, symptoms On presentation, pt was hypotensive and hypoxic Labs showed leukukocytosis CXR showed LLL opacity Pt also has right fot wound with erythema In ER, pt was received IVF, ceftriaxone, vanco and zithromax Pt is admitted due to Acute hypoxic resp failure due to pneumonia, cellulitis of right foot History - Past Medical History Cardiovascular: reports: Congestive heart failure, Hypertension, High joanne sterol, Peripheral Vascular Disease, Deep vein thrombosis, Atrial fibrillation Respiratory: reports: Pneumonia Neuro: reports: TIA, Peripheral neuropathy Endocrine/Autoimmune: reports: HyPOthyroidism GI: reports: C.difficile, Diverticulitis : reports: Benign prostate hypertrophy, Retention, Nocturia, Frequency, Other Musculoskeletal: reports: Osteoarthritis Derm: reports: Other MRSA Hx?: No - Past Surgical History General: reports: Appendectomy, Bowel surgery Ortho: reports: Knee replacement Cardiovascular: reports: Pacemaker HEENT: reports: Tonsil/Adenoidectomy - Family & Social History Family History Comment/Other: Both his parents in their 90s of old age. He says they did not have high blood pressure, diabetes, cancer, heart attack. 5 brothers and 3 sisters. He knows some of them are but he just cannot remember who and why. Only 1 is living. 3 children. With first but he says they are healthy. Living Situation: With spouse/s.o. Social History Notes: Moved to [facility] in the summer 2021 after living in the [place]. He was living in [place] for about 26 years. Maried his second 24 years ago. He is not sure. Prior to that he worked in the [employer]. 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 to his second and they live in their own home. 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 [place]. He told Prov he was a former smoker where he smoked a quarter of a pack per day but the tells me he never smoked. No history of alcohol abuse. No history of recreational substance abuse. - Substance History Use: Uses substance without health or social issues: NONE - POLST Patient has POLST: No Meds/Allgy - Home Medications Home Medications: Ambulatory Orders Medication Instructions Recorded Confirmed Levothyroxine [Synthroid] 25 mcg PO QDAC 01/15/23 02/06/24 Metoprolol Tartrate [Lopressor] 1 tab PO DAILY 01/15/23 02/06/24 oxyBUTYnin chloride [Oxybutynin 1 tab PO DAILY 01/15/23 02/06/24 Chloride] traZODone [Desyrel] 50 mg PO HS 01/15/23 02/06/24 Aspirin [Aspirin EC] 81 mg PO DAILY 06/12/23 02/06/24 Atorvastatin Calcium 40 mg PO DAILY 01/30/24 02/06/24 Lidocaine Patch 5% [Lidoderm Patch] 1 patch TOP DAILY PRN #10 patch 01/30/24 02/06/24 Meloxicam [Mobic] 7.5 mg PO BID 10 Days #20 tablet 01/30/24 02/06/24 - Allergies Allergies/Adverse Reactions: Allergies Allergy/AdvReac Type Severity Reaction Status Date / Time No Known Drug Allergies Allergy Verified 02/06/24 19:39 Review of Systems - Other Findings Other Findings: 10 points systems were reviewed and were negative except mentioned in HPI Exam - Vital Signs Vital Signs: Vital Signs x48h Temp Pulse Resp BP Pulse Ox O2 Flow Rate 02/06/24 22:20 36.9 C 72 15 97/55 L 96 02/06/24 22:00 77 17 92/57 L 93 3 02/06/24 20:30 77 17 81/51 L 97 3 02/06/24 19:37 85 L 02/06/24 19:23 36.9 C 75 18 90/40 L 95 - Physical Exam General Appearance: positive: Mild distress Eyes Bilateral: positive: Normal inspection ENT: positive: ENT inspection nml Neck: positive: Nml inspection Respiratory: positive: Chest non-tender, Breath sounds nml Cardiovascular: positive: Regular rate & rhythm Abdomen: positive: Non-tender, Nml bowel sounds Skin: positive: No rash Extremities: positive: No pedal edema Neurologic/Psychiatric: positive: Oriented x3 Conclusion/Plan - Lab Results Fish Bones: 02/06/24 19:51 02/06/24 19:51 - Other Other Results/Comments: A; Acute hypoxic respiratory failure Pneumonia Right foot cellulitis with wound Leukocytosis HTN Hyperlipidemia Hypothyroidism H/O A fib H/O DVT PLan: Admit to med surg with tele Follow cultures Start zosyn and vanco Duo nebs q4h prn Start NS @100 cc/h Cont metoprolol cont levothyroxine Supportive care DVT prophylaxic: SCD Full code Pt is admitted as inpatient as more than 2 midnight stay is expected
[2024-02-07] MEDS: SODIUM CHLORIDE FLUSH 0.9% 10 ML SYRINGE IVP SCH (00:24)
[2024-02-07] MEDS: ACETAMINOPHEN 325 MG TABLET PO PRN (00:31)
[2024-02-07] MEDS: traZODone 50 MG TABLET PO ONE (00:57)
[2024-02-07] MEDS: VANCOMYCIN INJ 1 GM in SODIUM CHLORIDE 0.9% 250 ML IV ONE (00:58)
[2024-02-07] MEDS: SODIUM CHLORIDE 0.9% 1,000 ML IV SCH (02:03)
[2024-02-07] MEDS: PIPERACILLIN/TAZOBACTAM 3.375 GM in SODIUM CHLORIDE 0.9% MINIBAG 100 ML IV SCH (02:03)
[2024-02-07 05:14] LABS: BASOPHILS % (AUTO) 0.2 %; HCT - HEMATOCRIT 39.9 % (42.0-52.0); LYMPHOCYTES # (AUTO) 0.3 10^3/uL (1.5-3.5); LYMPHOCYTES % (AUTO) 3.3 %; MEAN CORPUSCULAR HEMOGLOBIN 34.2 pg (27.0-31.0); MEAN CORPUSCULAR HGB CONC 32.6 g/dL (32.0-36.0); MEAN PLATELET VOLUME 9.2 fL (7.4-11.4); MONOCYTES # (AUTO) 0.1 10^3/uL (0.0-1.0); MONOCYTES % (AUTO) 1.7 %; NEUTROPHILS # (AUTO) 7.7 10^3/uL (1.5-6.6); NEUTROPHILS % (AUTO) 94.4 %; PLT - PLATELET COUNT 142 10^3/uL (130-450); RED CELL DISTRIBUTION WIDTH 12.9 % (12.0-15.0); WHITE BLOOD COUNT 8.2 x10^3/uL (4.8-10.8)
[2024-02-07 06:11] LABS: CALCIUM 8.3 mg/dL (8.5-10.3); CREATININE 1.3 mg/dL (0.6-1.3); POTASSIUM 4.7 mmol/L (3.5-4.5)
[2024-02-07] MEDS: LEVOTHYROXINE 25 MCG TABLET PO SCH (07:01)
[2024-02-07] MEDS ORDERED: VANCOMYCIN 500 MG VIAL ONE (07:42)
[2024-02-07] MEDS ORDERED: LIDOCAINE PATCH 5% TOP PRN (07:51)
[2024-02-07] MEDS: SODIUM ZIRCONIUM CYCLOSILICATE 5 GM PACKET PO ONE (07:53)
[2024-02-07] MEDS ORDERED: VANCOMYCIN INJ 1 GM, VANCOMYCIN INJ 500 MG in SODIUM CHLORIDE 0.9% 500 ML IV SCH (08:00)
[2024-02-07] MEDS ORDERED: LEVOTHYROXINE 25 MCG TABLET PO SCH (08:00)
--- NOTE | 2024-02-07 08:08 | PROVIDER PROGRESS NOTE ---
Assessment/Plan - Problem List (1) Pneumonia Qualifiers: Pneumonia type: due to unspecified organism Laterality: left Lung location: lower lobe of lung Qualified Code(s): J18.9 - Pneumonia, unspecified organism Assessment/Plan: --Hypoxic on oxymizer requiring 5L. --Continue Vancomycin and Zosyn. (2) Positive blood culture Assessment/Plan: --Blood culture x1 showing growth for gram positive cocci in pairs. Will order a repeat blood culture. --He is currently on Vancomycin and Zosyn. (3) Local infection of the skin and subcutaneous tissue, unspecified Assessment/Plan: --XR showing no evidence of osteomyelitis. --He receives wound care at [facility]. --Continue IV vancomycin and Zoyn. (4) Afib Assessment/Plan: --Continue metoprolol and aspirin. (5) Hypothyroid Assessment/Plan: --Continue levothyroxine. - Current Meds Current Meds: Current Medications Generic Name Dose Route Start Last Admin Trade Name Freq PRN Reason Stop Dose Admin Acetaminophen 650 mg 02/06/24 22:43 02/07/24 00:31 Acetaminophen 325 Mg Tablet PO 650 mg Q4HR PRN Administration Pain or Fever > 38C (100.4F) Sodium Chloride 1,000 mls @ 100 mls/hr 02/06/24 23:00 02/07/24 02:03 Normal Saline 0.9% IV 100 mls/hr .Q10H SHANTE Administration Piperacillin Sod/Tazobactam 100 mls @ 200 mls/hr 02/07/24 00:00 02/07/24 08:03 Sod 3.375 gm/ Sodium Chloride IV 200 mls/hr Q6H SHANTE Administration Sodium Chloride 10 ml 02/07/24 01:00 02/07/24 00:24 Sodium Chloride Flush 0.9% 10 Ml Syringe IVP Not Given 0100,0900,1700 SHANTE - Lab Result Fish Bone Diagrams: 02/07/24 05:06 02/07/24 05:06 - Additional Planning My Orders: My Active Orders 02/07/24 07:51 Lidocaine Patch 5% [Lidoderm Patch] 1 patch TOP DAILY PRN 02/07/24 07:59 Levothyroxine [Synthroid] 50 mcg PO QDAC 02/07/24 09:00 Aspirin EC [Ecotrin] 81 mg PO DAILY Atorvastatin [Lipitor] 40 mg PO DAILY Meloxicam [Mobic] 7.5 mg PO BID Metoprolol Tartrate [Lopressor] 25 mg PO DAILY Solifenacin Succinate [Vesicare] 5 mg PO DAILY 02/07/24 21:00 traZODone [Desyrel] 50 mg PO HS 02/08/24 05:00 BMP - BASIC METABOLIC PANEL [CHEM] DAILYLAB CBC [CBC - COMP BLD CT W/AUTO DIFF] [HEME] DAILYLAB 02/08/24 09:00 Blood Culture [CULTURE, BLOOD #2] [RM] DAILY 02/09/24 05:00 BMP - BASIC METABOLIC PANEL [CHEM] DAILYLAB CBC [CBC - COMP BLD CT W/AUTO DIFF] [HEME] DAILYLAB 02/10/24 05:00 BMP - BASIC METABOLIC PANEL [CHEM] DAILYLAB CBC [CBC - COMP BLD CT W/AUTO DIFF] [HEME] DAILYLAB 02/11/24 05:00 BMP - BASIC METABOLIC PANEL [CHEM] DAILYLAB CBC [CBC - COMP BLD CT W/AUTO DIFF] [HEME] DAILYLAB Subjective - Subjective Patient Reports: Feeling Better, Resting Comfortably, No Complaints Objective Vital Signs: Vital Signs - 24 hr 02/06/24 02/06/24 02/06/24 19:23 19:37 20:30 Temperature 36.9 C Heart Rate 75 77 Heart Rate [ Monitoring electrodes] Respiratory 18 17 Rate Blood Pressure 90/40 L 81/51 L Blood Pressure [Right Brachial artery] O2 Saturation 95 85 L 97 If not protocol 3 : Oxygen Flow, liters/minute 02/06/24 02/06/24 02/06/24 22:00 22:20 22:35 Temperature 36.9 C Heart Rate 77 72 Heart Rate [ Monitoring electrodes] Respiratory 17 15 Rate Blood Pressure 92/57 L 97/55 L Blood Pressure [Right Brachial artery] O2 Saturation 93 96 If not protocol 3 6 : Oxygen Flow, liters/minute 02/06/24 02/06/24 02/06/24 23:32 23:40 23:55 Temperature 37.3 C Heart Rate Heart Rate [ 66 Monitoring electrodes] Respiratory 20 Rate Blood Pressure Blood Pressure 99/46 L [Right Brachial artery] O2 Saturation 92 If not protocol 4 4 6 : Oxygen Flow, liters/minute 02/07/24 05:45 Temperature 36.8 C Heart Rate Heart Rate [ 60 Monitoring electrodes] Respiratory 20 Rate Blood Pressure Blood Pressure 102/48 L [Right Brachial artery] O2 Saturation 94 If not protocol 6 : Oxygen Flow, liters/minute Oxygen O2 Source [With Activity] Nasal cannula O2 Source [Without Activity] Nasal cannula O2 Source Oxymizer I&O (Last 24 Hrs): Intake and Output Totals x24h 02/05/24 02/06/24 02/07/24 23:59 23:59 23:59 Intake Total 1260 2150 Output Total 150 100 Balance 1110 2049 Neuro: Alert, CN 2-12 Grossly Intact, Oriented Times 3 Cardiovascular: Regular rate, Normal S1, Normal S2, No murmurs Respiratory: Chest non-tender, No respiratory distress, Breath sounds nml Abdomen: Normal bowel sounds, Soft, No tenderness, No hepatospenomegaly, No masses - Results Results: Laboratory Results WBC 8.2 x10^3/uL (4.8-10.8) 02/07/24 05:06 RBC 3.80 10^6/uL (4.70-6.10) L 02/07/24 05:06 Hgb 13.0 g/dL (14.0-18.0) L 02/07/24 05:06 Hct 39.9 % (42.0-52.0) L 02/07/24 05:06 MCV 105.0 fL (80.0-94.0) H 02/07/24 05:06 MCH 34.2 pg (27.0-31.0) H 02/07/24 05:06 MCHC 32.6 g/dL (32.0-36.0) 02/07/24 05:06 RDW 12.9 % (12.0-15.0) 02/07/24 05:06 Plt Count 142 10^3/uL (130-450) 02/07/24 05:06 MPV 9.2 fL (7.4-11.4) 02/07/24 05:06 Neut # (Auto) 7.7 10^3/uL (1.5-6.6) H 02/07/24 05:06 Lymph # (Auto) 0.3 10^3/uL (1.5-3.5) L 02/07/24 05:06 [place] # (Auto) 0.1 10^3/uL (0.0-1.0) 02/07/24 05:06 Eos # (Auto) 0.0 10^3/uL (0.0-0.7) 02/07/24 05:06 Baso # (Auto) 0.0 10^3/uL (0.0-0.1) 02/07/24 05:06 Absolute Nucleated RBC 0.00 x10^3/uL 02/07/24 05:06 Nucleated RBC % 0.0 /100WBC 02/07/24 05:06 PT 13.3 secs (9.9-12.6) H 02/06/24 19:51 INR 1.2 (0.8-1.2) 02/06/24 19:51 APTT 32.8 secs (24.9-33.3) 02/06/24 19:51 Sodium 137 mmol/L (135-145) 02/07/24 05:06 Potassium 4.7 mmol/L (3.5-4.5) H 02/07/24 05:06 Chloride 110 mmol/L (101-111) 02/07/24 05:06 Carbon Dioxide 20 mmol/L (21-32) L 02/07/24 05:06 Anion Gap 7.0 (6-13) 02/07/24 05:06 BUN 26 mg/dL (6-20) H 02/07/24 05:06 Creatinine 1.3 mg/dL (0.6-1.3) 02/07/24 05:06 Estimated GFR (MDRD) 52 (>89) L 02/07/24 05:06 Glucose 94 mg/dL (74-104) 02/07/24 05:06 Lactic Acid 1.6 mmol/L (0.5-2.2) 02/06/24 19:51 Calcium 8.3 mg/dL (8.5-10.3) L 02/07/24 05:06 Total Bilirubin 0.9 mg/dL (0.2-1.0) 02/06/24 19:51 AST 15 IU/L (10-42) 02/06/24 19:51 ALT 6 IU/L (10-60) L 02/06/24 19:51 Alkaline Phosphatase 46 IU/L (42-121) 02/06/24 19:51 Total Protein 5.7 g/dL (6.4-8.9) L 02/06/24 19:51 Albumin 3.4 g/dL (3.2-5.5) 02/06/24 19:51 Globulin 2.3 g/dL (2.1-4.2) 02/06/24 19:51 Albumin/Globulin Ratio 1.5 (1.0-2.2) 02/06/24 19:51 Lipase < 10 U/L (11-82) L 02/06/24 19:51 Urine Color DARK YELLOW 02/06/24 20:23 Urine Clarity CLEAR (CLEAR) 02/06/24 20:23 Urine pH 5.0 PH (5.0-7.5) 02/06/24 20:23 Ur Specific Capac >=1.030 (1.002-1.030) H 02/06/24 20:23 Urine Protein NEGATIVE mg/dL (NEGATIVE) 02/06/24 20:23 Urine Glucose (UA) NEGATIVE mg/dL (NEGATIVE) 02/06/24 20:23 Urine Ketones NEGATIVE mg/dL (NEGATIVE) 02/06/24 20:23 Urine Occult Blood NEGATIVE (NEGATIVE) 02/06/24 20:23 Urine Nitrite NEGATIVE (NEGATIVE) 02/06/24 20:23 Urine Bilirubin SMALL (NEGATIVE) H 02/06/24 20:23 Urine Urobilinogen 0.2 (NORMAL) E.U./dL (NORMAL) 02/06/24 20:23 Ur Leukocyte Esterase NEGATIVE (NEGATIVE) 02/06/24 20:23 Ur Microscopic Review NOT INDICATED 02/06/24 20:23 Urine Culture Comments NOT INDICATED 02/06/24 20:23 Nasal Adenovirus (PCR) NOT DETECTED 02/06/24 19:50 Nasal B. parapertussis DNA (PCR) NOT DETECTED 02/06/24 19:50 Nasal Coronavir 229E PCR NOT DETECTED 02/06/24 19:50 Nasal Coronavir HKU1 PCR NOT DETECTED 02/06/24 19:50 Nasal Coronavir NL63 PCR NOT DETECTED 02/06/24 19:50 Nasal Coronavir OC43 PCR NOT DETECTED 02/06/24 19:50 Nasal Enterovir/Rhinovir PCR NOT DETECTED 02/06/24 19:50 Nasal Influenza B PCR NOT DETECTED 02/06/24 19:50 Nasal Influenza A PCR NOT DETECTED 02/06/24 19:50 Nasal Parainfluen 1 PCR NOT DETECTED 02/06/24 19:50 Nasal Parainfluen 2 PCR NOT DETECTED 02/06/24 19:50 Nasal Parainfluen 3 PCR NOT DETECTED 02/06/24 19:50 Nasal Parainfluen 4 PCR NOT DETECTED 02/06/24 19:50 Nasal RSV (PCR) NOT DETECTED 02/06/24 19:50 Nasal B.pertussis DNA PCR NOT DETECTED 02/06/24 19:50 Nasal C.pneumoniae (PCR) NOT DETECTED 02/06/24 19:50 Angel Human Metapneumo PCR NOT DETECTED 02/06/24 19:50 Nasal M.pneumoniae (PCR) NOT DETECTED 02/06/24 19:50 Nasal SARS-CoV-2 (PCR) NOT DETECTED 02/06/24 19:50
[2024-02-07] MEDS ORDERED: VANCOMYCIN 1 GM VIAL ONE (08:44)
[2024-02-07] MEDS ORDERED: SODIUM CHLORIDE 0.9% 0 ML IV ONE (08:44)
[2024-02-07] MEDS: LEVOTHYROXINE 25 MCG TABLET PO ONE (08:58)
[2024-02-07] MEDS ORDERED: METOPROLOL TARTRATE 50 MG TABLET PO SCH (09:00)
[2024-02-07] MEDS: ATORVASTATIN 40 MG TABLET PO SCH (09:06)
[2024-02-07] MEDS: MELOXICAM 7.5 MG TABLET PO SCH (09:06)
[2024-02-07] MEDS: ASPIRIN EC 81 MG TABLET PO SCH (09:06)
[2024-02-07] MEDS: polyethylene glycoL 3350 17 GM PACKET PO SCH (09:06)
[2024-02-07] MEDS: SOLIFENACIN SUCCINATE 5 MG TABLET PO SCH (09:06)
[2024-02-07] MEDS: METOPROLOL TARTRATE 25 MG TABLET PO SCH (09:07)
--- NOTE | 2024-02-07 14:56 | PHARMACY PROGRESS NOTE ---
- Best Possible Medication History Admit Date and Time: 02/06/242201 Processed by: Pharmacy Medications reviewed in ED?: Yes Medication History completed: Yes Patient Interview: Completed Secondary Source(s): Insurance records As the person ultimately responsible for medication therapy, providers are able to order a medication from an existing home medication list in [facility] via the "Reconcile Routine" prior to Confirmation of that medication by underwriting support specialist. Such practice is discouraged except when the physician, in their clinical judgment, deems that a medical need exists for a medication without regard to previous use.
[2024-02-07] MEDS: IPRATROPIUM/ALBUTEROL 3 ML NEB INH PRN (16:17)
[2024-02-07] MEDS: AZITHROMYCIN INJ 500 MG in SODIUM CHLORIDE 0.9% 250 ML IV SCH (16:51)
[2024-02-07] MEDS: GABAPENTIN 300 MG CAPSULE PO SCH (21:32)
[2024-02-07] MEDS: traZODone 50 MG TABLET PO SCH (21:32)
[2024-02-07] MEDS: VANCOMYCIN INJ 1 GM, VANCOMYCIN INJ 500 MG in SODIUM CHLORIDE 0.9% 500 ML IV SCH (23:56)
[2024-02-08 03:38] LABS: BASOPHILS % (AUTO) 0.4 %; EOSINOPHILS % (AUTO) 0.1 %; HCT - HEMATOCRIT 39.6 % (42.0-52.0); HGB - HEMOGLOBIN 12.6 g/dL (14.0-18.0); LYMPHOCYTES # (AUTO) 0.3 10^3/uL (1.5-3.5); LYMPHOCYTES % (AUTO) 4.3 %; MEAN CORPUSCULAR HEMOGLOBIN 33.7 pg (27.0-31.0); MEAN CORPUSCULAR HGB CONC 31.8 g/dL (32.0-36.0); MEAN CORPUSCULAR VOLUME 105.9 fL (80.0-94.0); MEAN PLATELET VOLUME 9.2 fL (7.4-11.4); MONOCYTES # (AUTO) 0.3 10^3/uL (0.0-1.0); MONOCYTES % (AUTO) 3.4 %; NEUTROPHILS # (AUTO) 7.2 10^3/uL (1.5-6.6); NEUTROPHILS % (AUTO) 90.8 %; PLT - PLATELET COUNT 121 10^3/uL (130-450); RED BLOOD COUNT 3.74 10^6/uL (4.70-6.10); RED CELL DISTRIBUTION WIDTH 13.3 % (12.0-15.0); WHITE BLOOD COUNT 7.9 x10^3/uL (4.8-10.8)
[2024-02-08 04:02] LABS: CALCIUM 8.6 mg/dL (8.5-10.3); CREATININE 1.2 mg/dL (0.6-1.3); POTASSIUM 4.2 mmol/L (3.5-4.5)
[2024-02-08 05:07] LABS: DIFFERENTIAL COMMENT MANUAL=AUTO DIFF; PLATELET ESTIMATE, MANUAL NORMAL (130-450,000) (NORMAL); PLATELET MORPHOLOGY NORMAL APPEARANCE (NORMAL)
[2024-02-08] MEDS: LEVOTHYROXINE 25 MCG TABLET PO SCH (05:27)
[2024-02-08] MEDS ORDERED: iohexoL-300 100 ML VIAL ONE (07:30)
--- NOTE | 2024-02-08 09:10 | PROVIDER PROGRESS NOTE ---
Assessment/Plan - Problem List (1) Pneumonia Qualifiers: Pneumonia type: due to unspecified organism Laterality: left Lung location: lower lobe of lung Qualified Code(s): J18.9 - Pneumonia, unspecified organism Assessment/Plan: (1) Pneumonia Qualifiers: Pneumonia type: due to unspecified organism Laterality: left Lung lo cation: lower lobe of lung Qualified Code(s): J18.9 - Pneumonia, unspecified organism Assessment/Plan: --Hypoxic on oxymizer requiring 3 --Continue Vancomycin and Zosyn. --Will obtain CT chest today --Sputum culture is pending. (2) Positive blood culture Assessment/Plan: --Blood culture x2 showing growth for gram positive cocci in pairs. Will order a repeat blood culture. --He is currently on Vancomycin and Zosyn. --CT chest/abd/pelvis/r leg pending. --Unfortunately no TTE available today. (3) Local infection of the skin and subcutaneous tissue, unspecified Assessment/Plan: --XR showing no evidence of osteomyelitis. --He receives wound care at [facility]. --Continue IV vancomycin and Zoyn. --CT of his wound pending. Cannot undergo an MRI as he does have a pacemaker. (4) Afib Assessment/Plan: --Continue metoprolol and aspirin. --Discussed with [employer] yesterday. Patient is having dropped QRS on his rhythm. Have requested a pacemaker interrogation. (5) Hypothyroid Assessment/Plan: --Continue levothyroxine. - Current Meds Current Meds: Current Medications Generic Name Dose Route Start Last Admin Trade Name Freq PRN Reason Stop Dose Admin Acetaminophen 650 mg 02/06/24 22:43 02/08/24 08:53 Acetaminophen 325 Mg Tablet PO 650 mg Q4HR PRN Administration Pain or Fever > 38C (100.4F) Albuterol/Ipratropium 3 ml 02/06/24 22:06 02/08/24 02:51 Ipratropium/Albuterol 3 Ml Neb INH 3 ml RTQ4H PRN Administration Wheezing Aspirin 81 mg 02/07/24 09:00 02/07/24 09:06 Aspirin Ec 81 Mg Tablet PO 81 mg DAILY SHANTE Administration Atorvastatin Calcium 40 mg 02/07/24 09:00 02/07/24 09:06 Atorvastatin 40 Mg Tablet PO 40 mg DAILY SHANTE Administration Gabapentin 300 mg 02/07/24 21:00 02/07/24 21:37 Gabapentin 300 Mg Capsule PO Not Given HS SHANTE Piperacillin Sod/Tazobactam 100 mls @ 200 mls/hr 02/07/24 00:00 02/08/24 08:49 Sod 3.375 gm/ Sodium Chloride IV 200 mls/hr Q6H SHANTE Administration Vancomycin HCl 1 gm/ 500 mls @ 250 mls/hr 02/07/24 09:01 02/08/24 02:10 Vancomycin HCl 500 mg/ Sodium IV Infused Chloride Q24H SHANTE Infusion Azithromycin 500 mg/ Sodium 250 mls @ 250 mls/hr 02/07/24 16:35 02/07/24 18:31 Chloride IV 02/11/24 16:34 Infused DAILY SHANTE Infusion Levothyroxine Sodium 50 mcg 02/07/24 07:59 02/08/24 05:27 Levothyroxine 25 Mcg Tablet PO 50 mcg QDAC SHATNE Administration Meloxicam 7.5 mg 02/07/24 09:00 02/07/24 21:32 Meloxicam 7.5 Mg Tablet PO 7.5 mg BID SHANTE Administration Metoprolol Tartrate 25 mg 02/07/24 09:00 02/07/24 09:07 Metoprolol Tartrate 25 Mg Tablet PO 25 mg DAILY SHANTE Administration Polyethylene Glycol 17 gm 02/07/24 09:00 02/07/24 09:06 Polyethylene Glycol 3350 17 Gm Packet PO 17 gm DAILY SHANTE Administration Sodium Chloride 10 ml 02/07/24 01:00 02/07/24 23:57 Sodium Chloride Flush 0.9% 10 Ml Syringe IVP 10 ml 0100,0900,1700 SHANTE Administration Solifenacin 5 mg 02/07/24 09:00 02/07/24 09:06 Solifenacin Succinate 5 Mg Tablet PO 5 mg DAILY SHANTE Administration Trazodone HCl 50 mg 02/07/24 21:00 02/07/24 21:32 Trazodone 50 Mg Tablet PO 50 mg HS SHANTE Administration - Lab Result Fish Bone Diagrams: 02/08/24 03:27 02/08/24 03:27 - Additional Planning My Orders: My Active Orders 02/07/24 09:00 Aspirin EC [Ecotrin] 81 mg PO DAILY Atorvastatin [Lipitor] 40 mg PO DAILY Meloxicam [Mobic] 7.5 mg PO BID Metoprolol Tartrate [Lopressor] 25 mg PO DAILY Solifenacin Succinate [Vesicare] 5 mg PO DAILY 02/07/24 15:00 CUL,WOUND (AEROBIC) [RM] Routine 02/07/24 16:20 Nebulizer/MDI Tx. [RC] .PRN 02/07/24 16:35 Azithromycin Inj [Zithromax Inj] 500 mg Sodium Chloride 0.9% [Normal Saline 0.9%] 250 ml IV DAILY 02/07/24 21:00 Gabapentin [Neurontin] 300 mg PO HS traZODone [Desyrel] 50 mg PO HS 02/08/24 07:27 Abdomen/Pelvis W [CT] Routine Chest W [CT] Routine 02/08/24 07:38 Lower Extremity RT WO [CT] Routine 02/08/24 08:59 Blood Culture [CULTURE, BLOOD #2] [RM] DAILY 02/09/24 05:00 BMP - BASIC METABOLIC PANEL [CHEM] DAILYLAB CBC [CBC - COMP BLD CT W/AUTO DIFF] [HEME] DAILYLAB 02/10/24 05:00 BMP - BASIC METABOLIC PANEL [CHEM] DAILYLAB CBC [CBC - COMP BLD CT W/AUTO DIFF] [HEME] DAILYLAB 02/11/24 05:00 BMP - BASIC METABOLIC PANEL [CHEM] DAILYLAB CBC [CBC - COMP BLD CT W/AUTO DIFF] [HEME] DAILYLAB Subjective - Subjective Patient Reports: Other (Had an episode of rigors overnight.) Objective Vital Signs: Vital Signs - 24 hr 02/07/24 02/07/24 02/07/24 09:07 11:15 11:25 Temperature Heart Rate Heart Rate [ 84 Activity] Heart Rate [ Monitoring electrodes] Heart Rate [ 77 Sitting] Respiratory Rate Blood Pressure 100/55 L Blood Pressure [Right Brachial artery] Blood Pressure 138/65 H [Sitting] O2 Saturation If not protocol 6 : Oxygen Flow, liters/minute 02/07/24 02/07/24 02/07/24 13:21 15:50 16:21 Temperature 36.6 C 38.2 C H Heart Rate 79 Heart Rate [ Activity] Heart Rate [ 68 65 Monitoring electrodes] Heart Rate [ Sitting] Respiratory 20 20 17 Rate Blood Pressure Blood Pressure 111/44 L 117/61 [Right Brachial artery] Blood Pressure [Sitting] O2 Saturation 92 97 If not protocol 6 6 4 : Oxygen Flow, liters/minute 02/07/24 02/07/24 02/07/24 16:24 19:10 20:09 Temperature 37.2 C Heart Rate Heart Rate [ Activity] Heart Rate [ 67 Monitoring electrodes] Heart Rate [ Sitting] Respiratory 20 Rate Blood Pressure Blood Pressure 120/66 [Right Brachial artery] Blood Pressure [Sitting] O2 Saturation 94 If not protocol 6 3 4 : Oxygen Flow, liters/minute 02/07/24 02/07/24 02/08/24 21:33 23:55 02:50 Temperature 37.2 C Heart Rate 77 Heart Rate [ Activity] Heart Rate [ 92 Monitoring electrodes] Heart Rate [ Sitting] Respiratory 23 22 24 Rate Blood Pressure Blood Pressure 124/64 [Right Brachial artery] Blood Pressure [Sitting] O2 Saturation 95 92 If not protocol 3 3 3 : Oxygen Flow, liters/minute 02/08/24 02/08/24 02/08/24 05:33 07:33 08:00 Temperature 37.1 C 37.4 C Heart Rate Heart Rate [ Activity] Heart Rate [ 60 79 Monitoring electrodes] Heart Rate [ Sitting] Respiratory 20 20 Rate Blood Pressure Blood Pressure 146/66 H 137/74 H [Right Brachial artery] Blood Pressure [Sitting] O2 Saturation 90 L 94 If not protocol 3 3 3 : Oxygen Flow, liters/minute Oxygen O2 Source [With Activity] Oxymizer O2 Source [Without Activity] Oxymizer O2 Source Oxymizer I&O (Last 24 Hrs): Intake and Output Totals x24h 02/06/24 02/07/24 02/08/24 23:59 23:59 23:59 Intake Total 1260 4943.333 1205 Output Total 150 750 200 Balance 1110 4193.333 1005 General: Alert, Oriented x3, Cooperative, No acute distress Cardiovascular: Regular rate, Normal S1, Normal S2, No murmurs Respiratory: Chest non-tender, No respiratory distress, Breath sounds nml Abdomen: Normal bowel sounds, Soft, No tenderness, No hepatospenomegaly, No masses - Results Results: Laboratory Results WBC 7.9 x10^3/uL (4.8-10.8) 02/08/24 03:27 RBC 3.74 10^6/uL (4.70-6.10) L 02/08/24 03:27 Hgb 12.6 g/dL (14.0-18.0) L 02/08/24 03:27 Hct 39.6 % (42.0-52.0) L 02/08/24 03:27 MCV 105.9 fL (80.0-94.0) H 02/08/24 03:27 MCH 33.7 pg (27.0-31.0) H 02/08/24 03:27 MCHC 31.8 g/dL (32.0-36.0) L 02/08/24 03: RDW 13.3 % (12.0-15.0) 02/08/24 03:27 Plt Count 121 10^3/uL (130-450) L 02/08/24 03:27 MPV 9.2 fL (7.4-11.4) 02/08/24 03:27 Neut # (Auto) 7.2 10^3/uL (1.5-6.6) H 02/08/24 03:27 Lymph # (Auto) 0.3 10^3/uL (1.5-3.5) L 02/08/24 03:27 [place] # (Auto) 0.3 10^3/uL (0.0-1.0) 02/08/24 03:27 Eos # (Auto) 0.0 10^3/uL (0.0-0.7) 02/08/24 03:27 Baso # (Auto) 0.0 10^3/uL (0.0-0.1) 02/08/24 03:27 Absolute Nucleated RBC 0.00 x10^3/uL 02/08/24 03:27 Band Neuts % (Manual) Not Reportable 02/08/24 03:27 Abnorm Lymph % (Manual) Not Reportable 02/08/24 03:27 Nucleated RBC % 0.0 /100WBC 02/08/24 03:27 Neutrophils # (Manual) Not Reportable 02/08/24 03:27 Lymphocytes # (Manual) Not Reportable 02/08/24 03:27 Monocytes # (Manual) Not Reportable 02/08/24 03:27 Eosinophils # (Manual) Not Reportable 02/08/24 03:27 Basophils # (Manual) Not Reportable 02/08/24 03:27 Differential Comment MANUAL=AUTO DIFF 02/08/24 03:27 Platelet Estimate NORMAL (130-450,000) (NORMAL) 02/08/24 03:27 Platelet Morphology NORMAL APPEARANCE (NORMAL) 02/08/24 03:27 PT 13.3 secs (9.9-12.6) H 02/06/24 19:51 INR 1.2 (0.8-1.2) 02/06/24 19:51 APTT 32.8 secs (24.9-33.3) 02/06/24 19:51 Sodium 137 mmol/L (135-145) 02/08/24 03:27 Potassium 4.2 mmol/L (3.5-4.5) 02/08/24 03:27 Chloride 109 mmol/L (101-111) 02/08/24 03:27 Carbon Dioxide 20 mmol/L (21-32) L 02/08/24 03:27 Anion Gap 8.0 (6-13) 02/08/24 03:27 BUN 27 mg/dL (6-20) H 02/08/24 03:27 Creatinine 1.2 mg/dL (0.6-1.3) 02/08/24 03:27 Estimated GFR (MDRD) 57 (>89) L 02/08/24 03:27 Glucose 90 mg/dL (74-104) 02/08/24 03:27 Lactic Acid 1.6 mmol/L (0.5-2.2) 02/06/24 19:51 Calcium 8.6 mg/dL (8.5-10.3) 02/08/24 03:27 Total Bilirubin 0.9 mg/dL (0.2-1.0) 02/06/24 19:51 AST 15 IU/L (10-42) 02/06/24 19:51 ALT 6 IU/L (10-60) L 02/06/24 19:51 Alkaline Phosphatase 46 IU/L (42-121) 02/06/24 19:51 B-Natriuretic Peptide 272 pg/mL (5-100) H 02/08/24 03:27 Total Protein 5.7 g/dL (6.4-8.9) L 02/06/24 19:51 Albumin 3.4 g/dL (3.2-5.5) 02/06/24 19:51 Globulin 2.3 g/dL (2.1-4.2) 02/06/24 19:51 Albumin/Globulin Ratio 1.5 (1.0-2.2) 02/06/24 19:51 Lipase < 10 U/L (11-82) L 02/06/24 19:51 Urine Color DARK YELLOW 02/06/24 20:23 Urine Clarity CLEAR (CLEAR) 02/06/24 20:23 Urine pH 5.0 PH (5.0-7.5) 02/06/24 20:23 Ur Specific [place] >=1.030 (1.002-1.030) H 02/06/24 20:23 Urine Protein NEGATIVE mg/dL (NEGATIVE) 02/06/24 20:23 Urine Glucose (UA) NEGATIVE mg/dL (NEGATIVE) 02/06/24 20:23 Urine Ketones NEGATIVE mg/dL (NEGATIVE) 02/06/24 20:23 Urine Occult Blood NEGATIVE (NEGATIVE) 02/06/24 20:23 Urine Nitrite NEGATIVE (NEGATIVE) 02/06/24 20:23 Urine Bilirubin SMALL (NEGATIVE) H 02/06/24 20:23 Urine Urobilinogen 0.2 (NORMAL) E.U./dL (NORMAL) 02/06/24 20:23 Ur Leukocyte Esterase NEGATIVE (NEGATIVE) 02/06/24 20:23 Ur Microscopic Review NOT INDICATED 02/06/24 20:23 Urine Culture Comments NOT INDICATED 02/06/24 20:23 Nasal Adenovirus (PCR) NOT DETECTED 02/06/24 19:50 Nasal B. parapertussis DNA (PCR) NOT DETECTED 02/06/24 19:50 Nasal Coronavir 229E PCR NOT DETECTED 02/06/24 19:50 Nasal Coronavir HKU1 PCR NOT DETECTED 02/06/24 19:50 Nasal Coronavir NL63 PCR NOT DETECTED 02/06/24 19:50 Nasal Coronavir OC43 PCR NOT DETECTED 02/06/24 19:50 Nasal Enterovir/Rhinovir PCR NOT DETECTED 02/06/24 19:50 Nasal Influenza B PCR NOT DETECTED 02/06/24 19:50 Nasal Influenza A PCR NOT DETECTED 02/06/24 19:50 Nasal Parainfluen 1 PCR NOT DETECTED 02/06/24 19:50 Nasal Parainfluen 2 PCR NOT DETECTED 02/06/24 19:50 Nasal Parainfluen 3 PCR NOT DETECTED 02/06/24 19:50 Nasal Parainfluen 4 PCR NOT DETECTED 02/06/24 19:50 Nasal RSV (PCR) NOT DETECTED 02/06/24 19:50 Nasal B.pertussis DNA PCR NOT DETECTED 02/06/24 19:50 Nasal C.pneumoniae (PCR) NOT DETECTED 02/06/24 19:50 Angel Human Metapneumo PCR NOT DETECTED 02/06/24 19:50 Nasal M.pneumoniae (PCR) NOT DETECTED 02/06/24 19:50 Nasal SARS-CoV-2 (PCR) NOT DETECTED 02/06/24 19:50
--- NOTE | 2024-02-08 09:17 | XRAY Report ---
PROCEDURE: Chest 1V INDICATIONS: sob, crackles TECHNIQUE: One view of the chest was acquired. COMPARISON: February 06, 2024 FINDINGS: Surgical changes and devices: Surgical device within the left chest wall with leads in the right atr ia and right ventricle. Lungs and pleura: Elevation of the right hemidiaphragm. No pleural effusions or pneumothorax. Retroc ardiac airspace opacity.. A few pulmonary granulomas. Mediastinum: Mediastinal contours appear normal. Heart size is normal. Bones and chest wall: No suspicious bony lesions. Overlying soft tissues appear unremarkable. IMPRESSION: Persistent left lower lobe infiltrate concerning for infection. Reviewed by: Tim Morse MD on 02/08/2024 8:15 AM VERNA Approved by: Tim Morse MD on 02/08/2024 8:15 AM VERNA Station ID: [id number]
[2024-02-08] MEDS: iohexoL-300 100 ML VIAL IVP ONE (09:46)
--- NOTE | 2024-02-08 10:24 | CT Report ---
PROCEDURE: Lower Extremity RT WO INDICATIONS: Bacteremia, r/o osteomyelitis TECHNIQUE: Noncontrast 3-mm axial sections acquired from the distal tibial shaft to the talar dome, with coronal and sagittal reformats. For radiation dose reduction, the following was used: automated exposure c ontrol, adjustment of mA and/or kV according to patient size. COMPARISON: Radiograph February 06, 2024 FINDINGS: Image quality: Excellent. Bones: Screw fixation of the fibulotalar and tibiotalar joints with some osseous bridging. There are no osseous erosions along the calcaneus to coincide with lytic changes from a healed wound infection. There is osteoarthritic changes throughout the midfoot most prominent within the middle cuneiform, ta lonavicular, and cuboid joints. Mild first tarsometatarsal osteoarthritic change. Soft tissues: Extensive soft tissue edema throughout the foot most prominent within the mid to foref oot and along the posterior lateral heel Impression: Extensive soft tissue edema without calcaneal erosion identified. Post surgical changes of the ankle joint. Moderate osteoarthritic changes of the midfoot. Reviewed by: Tim Morse MD on 02/08/2024 9:22 AM VERNA Approved by: Tim Morse MD on 02/08/2024 9:22 AM VERNA Station ID: [id number]
--- NOTE | 2024-02-08 11:11 | CT Report ---
PROCEDURE: Chest W INDICATIONS: Pneumonia, worsening respiratory sx, bacteremia CONTRAST: 100ml omni 300 TECHNIQUE: After the administration of intravenous contrast, a CT scan of the chest was performed. Images were recorded and evaluated at appropriate window settings. Reformats: axial MIP of the chest, coronal and sagittal. For radiation dose reduction, the following was used: automated exposure control, adjustme nt of mA and/or kV according to patient size. COMPARISON: Chest radiograph February 08, 2024 FINDINGS: Image quality: Timing of contrast is poor, nondiagnostic for exclusion of PE. Chest wall and lower neck: No thyroid nodule which requires sonographic follow up. No axillary or sup raclavicular adenopathy by size. Lungs and pleura: There is hazy airspace opacity of the left lower lobe. Near-complete volume loss of the right lower lobe with traction bronchiectasis and fibrosis. Small ri ght pleural effusions. No pneumothorax. No suspicious pulmonary nodules which require follow up. Mediastinum: Heart size is normal. No pericardial effusion. No large vessel abnormality. No mediastin al adenopathy by size criteria. Bones: No aggressive osseous abnormality. Upper Abdomen: Unremarkable. IMPRESSION: Consolidation with a left lower lobe suggestive of infection. Consolidation and traction bronchiectasis of the right lower lobe with fibrosis results in nearly com plete volume loss. Reviewed by: Tim Morse MD on 02/08/2024 10:10 AM VERNA Approved by: Tim Morse MD on 02/08/2024 10:10 AM VERNA Station ID: [id number]
--- NOTE | 2024-02-08 11:17 | CT Report ---
PROCEDURE: Abdomen/Pelvis W INDICATIONS: Gram positive bacteremia without source CONTRAST: 100ml omni 300 TECHNIQUE: After the administration of intravenous contrast, a CT scan of the abdomen and pelvis was performed. Images were recorded and evaluated at appropriate window settings. Reformats: coronal and sagittal. F or radiation dose reduction, the following was used: automated exposure control, adjustment of mA and /or kV according to patient size. COMPARISON: None. FINDINGS: Image quality: Diagnostic. Lower chest: There is increased opacity of the left lower lobe. Consolidation traction bronchiectasis and volume loss of the right lower lobe. Liver: No solid mass. A small peripherally calcified cyst within the dome the liver. Gallbladder and biliary tree: Hydropic appearing gallbladder. Spleen: No splenomegaly. Pancreas: No pancreatic ductal dilation. Adrenals: No adrenal nodule. Kidneys and ureters: No hydronephrosis. No renal cystic lesion which requires follow up. No solid mas s. Stomach, bowel and peritoneum: No bowel distension. No pathologic free fluid. Lymph nodes: No central or retroperitoneal adenopathy. Vessels: No infrarenal aortic aneurysm. PELVIS Reproductive organs: Unremarkable. Bladder: No abnormal wall thickening, accounting for underdistention. Pelvic lymph nodes: No pelvic adenopathy by size criteria. Bones: No aggressive osseous abnormality. Right total hip prosthesis. Other: No significant ventral or inguinal hernia. IMPRESSION: No abscess or fluid collection within the abdomen. Reviewed by: Tim Morse MD on 02/08/2024 10:16 AM VERNA Approved by: Tim Morse MD on 02/08/2024 10:16 AM [id number] Station ID: [id number]
[2024-02-08] MEDS: cefTRIAXone 2 GM in SODIUM CHLORIDE 0.9% MINIBAG 100 ML IV SCH (11:25)
[2024-02-08] MEDS: DOCUSATE SODIUM 250 MG CAPSULE PO SCH (20:22)
[2024-02-09 05:29] LABS: BASOPHILS % (AUTO) 0.3 %; EOSINOPHILS # (AUTO) 0.2 10^3/uL (0.0-0.7); EOSINOPHILS % (AUTO) 2.2 %; HCT - HEMATOCRIT 37.6 % (42.0-52.0); HGB - HEMOGLOBIN 11.9 g/dL (14.0-18.0); LYMPHOCYTES # (AUTO) 0.6 10^3/uL (1.5-3.5); LYMPHOCYTES % (AUTO) 7.5 %; MEAN CORPUSCULAR HEMOGLOBIN 33.6 pg (27.0-31.0); MEAN CORPUSCULAR HGB CONC 31.6 g/dL (32.0-36.0); MEAN CORPUSCULAR VOLUME 106.2 fL (80.0-94.0); MEAN PLATELET VOLUME 9.7 fL (7.4-11.4); MONOCYTES # (AUTO) 0.5 10^3/uL (0.0-1.0); MONOCYTES % (AUTO) 6.5 %; NEUTROPHILS # (AUTO) 6.1 10^3/uL (1.5-6.6); NEUTROPHILS % (AUTO) 83.1 %; PLT - PLATELET COUNT 105 10^3/uL (130-450); RED BLOOD COUNT 3.54 10^6/uL (4.70-6.10); RED CELL DISTRIBUTION WIDTH 13.2 % (12.0-15.0); WHITE BLOOD COUNT 7.3 x10^3/uL (4.8-10.8)
[2024-02-09 05:44] LABS: CALCIUM 8.9 mg/dL (8.5-10.3)
--- NOTE | 2024-02-09 12:13 | PROVIDER PROGRESS NOTE ---
Assessment/Plan - Problem List (1) Pneumonia Qualifiers: Pneumonia type: due to unspecified organism Laterality: left Lung location: lower lobe of lung Qualified Code(s): J18.9 - Pneumonia, unspecified organism Assessment/Plan: (1) Pneumonia Qualifiers: Pneumonia type: due to unspecified organism Laterality: left Lung lo cation: lower lobe of lung Qualified Code(s): J18.9 - Pneumonia, unspecified organism Assessment/Plan: --Weaning oxygen as tolerated. --Continue Vancomycin and ceftriaxone. (2) Positive blood culture Assessment/Plan: Blood culture from 02/05 showing gram-positive bacteremia. This was discussed with microbiology, final results should be available tomorrow. They feel it is the same beta-hemolytic strep group that was found in his wound culture. As such I believe the etiology of his bacteremia is his right lower extremity wound. Repeat blood cultures have been negative. I have ordered another blood culture to be drawn tomorrow. This was discussed with infectious disease at [facility] who recommended continued IV vancomycin and ceftriaxone. We did also discuss the hardware in his foot and his pacemaker. Feel this is stable at this time. Will obtain a bone scan to rule out osteomyelitis as well as a TTE. Follow-up with infectious disease for recommendations once these studies are completed to determine further antibiotic course. (3) Local infection of the skin and subcutaneous tissue, unspecified Assessment/Plan: --CT/XR showing no evidence of osteomyelitis. Will obtain a bone scan. --He receives wound care at [facility]. His wound care orders have been placed in the chart. --Continue IV vancomycin and ceftriaxone --CT of his wound pending. Cannot undergo an MRI as he does have a pacemaker. Willl obtain a bone scan as above. (4) Afib Assessment/Plan: --Continue metoprolol and aspirin. --Discussed with [employer]. Patient is having dropped QRS on his rhythm. Pace interrogation and adjustment peformed on 02/06. (5) Hypothyroid Assessment/Plan: --Continue levothyroxine. (8) Pacemaker Assessment/Plan: --Pacemaker interrogation performed on 02/06 by [employer] rep. --ID feels it is unlikely that his pacemaker is infected. TTE is pending. Repeat blood cultures have thus far been negative. No need for WILFRIDO at this time. - Current Meds Current Meds: Current Medications Generic Name Dose Route Start Last Admin Trade Name Freq PRN Reason Stop Dose Admin Acetaminophen 650 mg 02/06/24 22:43 02/09/24 05:54 Acetaminophen 325 Mg Tablet PO 650 mg Q4HR PRN Administration Pain or Fever > 38C (100.4F) Albuterol/Ipratropium 3 ml 02/06/24 22:06 02/09/24 07:42 Ipratropium/Albuterol 3 Ml Neb INH 3 ml RTQ4H PRN Administration Wheezing Aspirin 81 mg 02/07/24 09:00 02/09/24 09:15 Aspirin Ec 81 Mg Tablet PO 81 mg DAILY SHANTE Administration Atorvastatin Calcium 40 mg 02/07/24 09:00 02/09/24 09:16 Atorvastatin 40 Mg Tablet PO 40 mg DAILY SHANTE Administration Docusate Sodium 250 - 500 mg 02/08/24 21:00 02/09/24 09:15 Docusate Sodium 250 Mg Capsule PO 500 mg DAILY SHANTE Administration Gabapentin 300 mg 02/07/24 21:00 02/08/24 20:24 Gabapentin 300 Mg Capsule PO Not Given HS SHANTE Vancomycin HCl 1 gm/ 500 mls @ 250 mls/hr 02/07/24 09:01 02/09/24 03:55 Vancomycin HCl 500 mg/ Sodium IV Infused Chloride Q24H SHANTE Infusion Azithromycin 500 mg/ Sodium 250 mls @ 250 mls/hr 02/07/24 16:35 02/09/24 09:20 Chloride IV 02/11/24 16:34 100 mls/hr DAILY SHANTE Infusion Ceftriaxone Sodium 2 gm/ 100 mls @ 200 mls/hr 02/08/24 10:00 02/09/24 10:35 Sodium Chloride IV Infused DAILY SHANTE Infusion Levothyroxine Sodium 50 mcg 02/07/24 07:59 02/09/24 05:54 Levothyroxine 25 Mcg Tablet PO 50 mcg QDAC SHANTE Administration Meloxicam 7.5 mg 02/07/24 09:00 02/09/24 09:16 Meloxicam 7.5 Mg Tablet PO 7.5 mg BID SHANTE Administration Metoprolol Tartrate 25 mg 02/07/24 09:00 02/09/24 09:16 Metoprolol Tartrate 25 Mg Tablet PO 25 mg DAILY SHANTE Administration Polyethylene Glycol 17 gm 02/07/24 09:00 02/09/24 09:17 Polyethylene Glycol 3350 17 Gm Packet PO 17 gm DAILY SHANTE Administration Sodium Chloride 10 ml 02/07/24 01:00 02/09/24 09:17 Sodium Chloride Flush 0.9% 10 Ml Syringe IVP 10 ml 0100,0900,1700 SHANTE Administration Solifenacin 5 mg 02/07/24 09:00 02/09/24 09:15 Solifenacin Succinate 5 Mg Tablet PO 5 mg DAILY SHANTE Administration Trazodone HCl 50 mg 02/07/24 21:00 02/08/24 20:21 Trazodone 50 Mg Tablet PO 50 mg HS SHANTE Administration - Lab Result Fish Bone Diagrams: 02/09/24 04:59 02/09/24 04:59 - Additional Planning My Orders: My Active Orders 02/09/24 11:09 Miscellaenous Nursing Order [RC] UD 02/09/24 11:16 Lidocaine Ointment 5% [Xylocaine Ointment 5%] 1 applic TOP QID PRN 02/09/24 12:02 Bone 3-Phase [NM] Routine 02/09/24 17:00 Saccharomyces Boulardii [Florastor] 500 mg PO BIDWM 02/10/24 05:00 BMP - BASIC METABOLIC PANEL [CHEM] DAILYLAB CBC [CBC - COMP BLD CT W/AUTO DIFF] [HEME] DAILYLAB 02/11/24 05:00 BMP - BASIC METABOLIC PANEL [CHEM] DAILYLAB CBC [CBC - COMP BLD CT W/AUTO DIFF] [HEME] DAILYLAB Subjective - Subjective Patient Reports: Feeling Better, Resting Comfortably, No Complaints Objective Vital Signs: Vital Signs - 24 hr 02/08/24 02/08/24 02/08/24 13:35 16:00 19:10 Temperature 37.2 C 37.2 C Heart Rate Heart Rate [ Brachial] Heart Rate [ 60 60 Monitoring electrodes] Respiratory 20 20 Rate Blood Pressure Blood Pressure 100/67 131/69 H [Right Brachial artery] O2 Saturation 93 96 If not protocol 3 3 3 : Oxygen Flow, liters/minute 02/08/24 02/08/24 02/08/24 20:25 20:29 21:59 Temperature 36.8 C Heart Rate Heart Rate [ Brachial] Heart Rate [ Monitoring electrodes] Respiratory 20 Rate Blood Pressure Blood Pressure 146/80 H [Right Brachial artery] O2 Saturation 98 97 97 If not protocol 3 2.5 2 : Oxygen Flow, liters/minute 02/08/24 02/08/24 02/09/24 22:58 23:49 02:15 Temperature 37.2 C 37.1 C 37.0 C Heart Rate Heart Rate [ Brachial] Heart Rate [ 65 Monitoring electrodes] Respiratory 20 Rate Blood Pressure Blood Pressure 155/71 H [Right Brachial artery] O2 Saturation 93 If not protocol 2 : Oxygen Flow, liters/minute 02/09/24 02/09/24 02/09/24 04:44 07:43 08:36 Temperature 36.8 C 36.7 C Heart Rate 60 Heart Rate [ 64 Brachial] Heart Rate [ 60 Monitoring electrodes] Respiratory 20 20 20 Rate Blood Pressure Blood Pressure 132/68 H 145/71 H [Right Brachial artery] O2 Saturation 95 92 If not protocol 2 2 2 : Oxygen Flow, liters/minute 02/09/24 09:16 Temperature Heart Rate Heart Rate [ Brachial] Heart Rate [ Monitoring electrodes] Respiratory Rate Blood Pressure 145/71 H Blood Pressure [Right Brachial artery] O2 Saturation If not protocol : Oxygen Flow, liters/minute Oxygen O2 Source [With Activity] Oxymizer O2 Source [Without Activity] Oxymizer O2 Source Nasal cannula I&O (Last 24 Hrs): Intake and Output Totals x24h 02/07/24 02/08/24 02/09/24 23:59 23:59 23:59 Intake Total 4943.333 2515 865 Output Total 750 700 500 Balance 4193.333 1815 365 General: Alert, Oriented x3, Cooperative, No acute distress Neuro: Alert, CN 2-12 Grossly Intact, Oriented Times 3 Cardiovascular: Regular rate, Normal S1, Normal S2, No murmurs Respiratory: Chest non-tender, No respiratory distress, Breath sounds nml Extremities: Other (Erythema of his right leg. Marked. Has not receeded.) - Results Results: Laboratory Results WBC 7.3 x10^3/uL (4.8-10.8) 02/09/24 04:59 RBC 3.54 10^6/uL (4.70-6.10) L 02/09/24 04:59 Hgb 11.9 g/dL (14.0-18.0) L 02/09/24 04:59 Hct 37.6 % (42.0-52.0) L 02/09/24 04:59 MCV 106.2 fL (80.0-94.0) H 02/09/24 04:59 MCH 33.6 pg (27.0-31.0) H 02/09/24 04:59 MCHC 31.6 g/dL (32.0-36.0) L 02/09/24 04:59 RDW 13.2 % (12.0-15.0) 02/09/24 04:59 Plt Count 105 10^3/uL (130-450) L 02/09/24 04:59 MPV 9.7 fL (7.4-11.4) 02/09/24 04:59 Neut # (Auto) 6.1 10^3/uL (1.5-6.6) 02/09/24 04:59 Lymph # (Auto) 0.6 10^3/uL (1.5-3.5) L 02/09/24 04:59 [place] # (Auto) 0.5 10^3/uL (0.0-1.0) 02/09/24 04:59 Eos # (Auto) 0.2 10^3/uL (0.0-0.7) 02/09/24 04:59 Baso # (Auto) 0.0 10^3/uL (0.0-0.1) 02/09/24 04:59 Absolute Nucleated RBC 0.00 x10^3/uL 02/09/24 04:59 Band Neuts % (Manual) Not Reportable 02/08/24 03:27 Abnorm Lymph % (Manual) Not Reportable 02/08/24 03:27 Nucleated RBC % 0.0 /100WBC 02/09/24 04:59 Neutrophils # (Manual) Not Reportable 02/08/24 03:27 Lymphocytes # (Manual) Not Reportable 02/08/24 03:27 Monocytes # (Manual) Not Reportable 02/08/24 03:27 Eosinophils # (Manual) Not Reportable 02/08/24 03:27 Basophils # (Manual) Not Reportable 02/08/24 03:27 Differential Comment MANUAL=AUTO DIFF 02/08/24 03:27 Platelet Estimate NORMAL (130-450,000) (NORMAL) 02/08/24 03:27 Platelet Morphology NORMAL APPEARANCE (NORMAL) 02/08/24 03:27 PT 13.3 secs (9.9-12.6) H 02/06/24 19:51 INR 1.2 (0.8-1.2) 02/06/24 19:51 APTT 32.8 secs (24.9-33.3) 02/06/24 19:51 Sodium 137 mmol/L (135-145) 02/09/24 04:59 Potassium 4.0 mmol/L (3.5-4.5) 02/09/24 04:59 Chloride 109 mmol/L (101-111) 02/09/24 04:59 Carbon Dioxide 23 mmol/L (21-32) 02/09/24 04:59 Anion Gap 5.0 (6-13) L 02/09/24 04:59 BUN 22 mg/dL (6-20) H 02/09/24 04:59 Creatinine 1.0 mg/dL (0.6-1.3) 02/09/24 04:59 Estimated GFR (MDRD) 71 (>89) L 02/09/24 04:59 Glucose 95 mg/dL (74-104) 02/09/24 04:59 Lactic Acid 1.6 mmol/L (0.5-2.2) 02/06/24 19:51 Calcium 8.9 mg/dL (8.5-10.3) 02/09/24 04:59 Total Bilirubin 0.9 mg/dL (0.2-1.0) 02/06/24 19:51 AST 15 IU/L (10-42) 02/06/24 19:51 ALT 6 IU/L (10-60) L 02/06/24 19:51 Alkaline Phosphatase 46 IU/L (42-121) 02/06/24 19:51 B-Natriuretic Peptide 272 pg/mL (5-100) H 02/08/24 03:27 Total Protein 5.7 g/dL (6.4-8.9) L 02/06/24 19:51 Albumin 3.4 g/dL (3.2-5.5) 02/06/24 19:51 Globulin 2.3 g/dL (2.1-4.2) 02/06/24 19:51 Albumin/Globulin Ratio 1.5 (1.0-2.2) 02/06/24 19:51 Lipase < 10 U/L (11-82) L 02/06/24 19:51 Urine Color DARK YELLOW 02/06/24 20:23 Urine Clarity CLEAR (CLEAR) 02/06/24 20:23 Urine pH 5.0 PH (5.0-7.5) 02/06/24 20:23 Ur Specific [place] >=1.030 (1.002-1.030) H 02/06/24 20:23 Urine Protein NEGATIVE mg/dL (NEGATIVE) 02/06/24 20:23 Urine Glucose (UA) NEGATIVE mg/dL (NEGATIVE) 02/06/24 20:23 Urine Ketones NEGATIVE mg/dL (NEGATIVE) 02/06/24 20:23 Urine Occult Blood NEGATIVE (NEGATIVE) 02/06/24 20:23 Urine Nitrite NEGATIVE (NEGATIVE) 02/06/24 20:23 Urine Bilirubin SMALL (NEGATIVE) H 02/06/24 20:23 Urine Urobilinogen 0.2 (NORMAL) E.U./dL (NORMAL) 02/06/24 20:23 Ur Leukocyte Esterase NEGATIVE (NEGATIVE) 02/06/24 20:23 Ur Microscopic Review NOT INDICATED 02/06/24 20:23 Urine Culture Comments NOT INDICATED 02/06/24 20:23 Nasal Adenovirus (PCR) NOT DETECTED 02/06/24 19:50 Nasal B. parapertussis DNA (PCR) NOT DETECTED 02/06/24 19:50 Nasal Coronavir 229E PCR NOT DETECTED 02/06/24 19:50 Nasal Coronavir HKU1 PCR NOT DETECTED 02/06/24 19:50 Nasal Coronavir NL63 PCR NOT DETECTED 02/06/24 19:50 Nasal Coronavir OC43 PCR NOT DETECTED 02/06/24 19:50 Nasal Enterovir/Rhinovir PCR NOT DETECTED 02/06/24 19:50 Nasal Influenza B PCR NOT DETECTED 02/06/24 19:50 Nasal Influenza A PCR NOT DETECTED 02/06/24 19:50 Nasal Parainfluen 1 PCR NOT DETECTED 02/06/24 19:50 Nasal Parainfluen 2 PCR NOT DETECTED 02/06/24 19:50 Nasal Parainfluen 3 PCR NOT DETECTED 02/06/24 19:50 Nasal Parainfluen 4 PCR NOT DETECTED 02/06/24 19:50 Nasal RSV (PCR) NOT DETECTED 02/06/24 19:50 Nasal B.pertussis DNA PCR NOT DETECTED 02/06/24 19:50 Nasal C.pneumoniae (PCR) NOT DETECTED 02/06/24 19:50 Angel Human Metapneumo PCR NOT DETECTED 02/06/24 19:50 Nasal M.pneumoniae (PCR) NOT DETECTED 02/06/24 19:50 Nasal SARS-CoV-2 (PCR) NOT DETECTED 02/06/24 19:50
[2024-02-09] MEDS ORDERED: guaiFENesin/CODEINE 5 ML UDC PO PRN (13:21)
[2024-02-09] MEDS: MULTIVITAMIN W/MINERALS TABLET PO SCH (13:57)
[2024-02-09] MEDS: LIDOCAINE OINTMENT 5% 35.44 GM TUBE TOP PRN (14:46)
[2024-02-09] MEDS: SACCHAROMYCES BOULARDII 250 MG CAPSULE PO SCH (17:02)
--- NOTE | 2024-02-09 20:33 | XRAY Report ---
PROCEDURE: Chest 1V INDICATIONS: Worsening tacypnea. Known PNA. TECHNIQUE: One view of the chest was acquired. COMPARISON: 02/08/2024 FINDINGS: Surgical changes and devices: Left chest wall pulse. Her with electrode leads in place. Lungs and pleura: Very low lung volumes. Mild bibasilar opacities persist. Possible trace effusions are present. Mediastinum: Unchanged cardiomediastinal contours. Borderline large heart. Bones and chest wall: Degenerative changes IMPRESSION: Very low lung volumes on this portable study limiting evaluation. Mild bibasilar opacities persist, l ikely infectious/inflammatory with atelectasis. Consider future imaging surveillance to assess for re solution. Reviewed by: Arturo Acevedo MD on 02/09/2024 8:32 PM PDT Approved by: Arturo Acevedo MD on 02/09/2024 8:32 PM PDT Station ID: [id number]
[2024-02-10 05:53] LABS: BASOPHILS % (AUTO) 0.3 %; EOSINOPHILS # (AUTO) 0.1 10^3/uL (0.0-0.7); EOSINOPHILS % (AUTO) 1.4 %; HGB - HEMOGLOBIN 11.7 g/dL (14.0-18.0); LYMPHOCYTES # (AUTO) 0.6 10^3/uL (1.5-3.5); LYMPHOCYTES % (AUTO) 7.7 %; MEAN CORPUSCULAR HEMOGLOBIN 34.2 pg (27.0-31.0); MEAN CORPUSCULAR HGB CONC 32.5 g/dL (32.0-36.0); MEAN CORPUSCULAR VOLUME 105.3 fL (80.0-94.0); MEAN PLATELET VOLUME 10.6 fL (7.4-11.4); MONOCYTES # (AUTO) 0.6 10^3/uL (0.0-1.0); MONOCYTES % (AUTO) 8.4 %; NEUTROPHILS # (AUTO) 5.8 10^3/uL (1.5-6.6); NEUTROPHILS % (AUTO) 81.5 %; PLT - PLATELET COUNT 96 10^3/uL (130-450); RED BLOOD COUNT 3.42 10^6/uL (4.70-6.10); RED CELL DISTRIBUTION WIDTH 13.1 % (12.0-15.0); WHITE BLOOD COUNT 7.2 x10^3/uL (4.8-10.8)
[2024-02-10 06:08] LABS: CALCIUM 8.9 mg/dL (8.5-10.3); CREATININE 0.9 mg/dL (0.6-1.3)
[2024-02-10] MEDS: VANCOMYCIN INJ 1 GM, VANCOMYCIN INJ 500 MG in SODIUM CHLORIDE 0.9% 500 ML IV SCH (10:02)
[2024-02-10] MEDS ORDERED: ZINC OXIDE 12% OINT 57 GM TUBE TOP PRN (10:36)
--- NOTE | 2024-02-10 16:38 | PROVIDER PROGRESS NOTE ---
Subjective - Prog Note Date Prog Note Date: 02/10/24 Prog Note Time: 16:36 - Subjective Pt reports feeling: Improved Subjective: he is talkative this morning. Alert to person. Not necessarily to time or situation. Physical therapy tells me that he is max assist x 3. They need to use the slide board to get him out of bed and mobile. On his own he cannot keep his foot off the floor with transfers and physical therapy has told that leg off the floor. The previous hospitalist is trying to work him up for possible infection of hardware as the source of his strep bacteremia. But we do not have nuclear medicine here. He was going to order a scan. The patient denies any pain. Feels like he get up and walk on his arm and does not seem to have insight of how weak he is. He denies chest pain, cough, shortness of breath. Current Medications - Current Medications Current Medications: Active Medications Acetaminophen (Acetaminophen 325 Mg Tablet) 650 mg PO Q4HR PRN PRN Reason: Pain or Fever > 38C (100.4F) Last Admin: 02/10/24 12:36 Dose: 650 mg Albuterol/Ipratropium (Ipratropium/Albuterol 3 Ml Neb) 3 ml INH RTQ4H PRN PRN Reason: Wheezing Last Admin: 02/09/24 20:59 Dose: 3 ml Aspirin (Aspirin Ec 81 Mg Tablet) 81 mg PO DAILY [facility] Last Admin: 02/10/24 08:48 Dose: 81 mg Atorvastatin Calcium (Atorvastatin 40 Mg Tablet) 40 mg PO DAILY [facility] Last Admin: 02/10/24 08:49 Dose: 40 mg Docusate Sodium (Docusate Sodium 250 Mg Capsule) 250 - 500 mg PO DAILY [facility] Last Admin: 02/10/24 08:48 Dose: 250 mg Gabapentin (Gabapentin 300 Mg Capsule) 300 mg PO HS [facility] Last Admin: 02/09/24 20:44 Dose: Not Given Guaifenesin/Codeine Phosphate (Guaifenesin/Codeine 5 Ml Udc) 5 ml PO Q6HR PRN PRN Reason: Cough Ceftriaxone Sodium 2 gm/ (Sodium Chloride) 100 mls @ 200 mls/hr IV DAILY [facility] Last Infusion: 02/10/24 10:25 Dose: Infused Vancomycin HCl 1 gm/Vancomycin HCl 500 mg/ Sodium Chloride 500 mls @ 250 mls/hr IV Q24H [facility] Last Infusion: 02/10/24 15:24 Dose: Infused Levothyroxine Sodium (Levothyroxine 25 Mcg Tablet) 50 mcg PO QDAC [facility] Last Admin: 02/10/24 06:56 Dose: 50 mcg Lidocaine (Lidocaine Patch 5%) 1 patch TOP DAILY PRN PRN Reason: pain Lidocaine (Lidocaine Ointment 5% 35.44 Gm Tube) 1 applic TOP QID PRN PRN Reason: Wound Last Admin: 02/09/24 14:46 Dose: 1 applic Meloxicam (Meloxicam 7.5 Mg Tablet) 7.5 mg PO BID [facility] Last Admin: 02/10/24 08:49 Dose: 7.5 mg Metoprolol Tartrate (Metoprolol Tartrate 25 Mg Tablet) 25 mg PO DAILY [facility] Last Admin: 02/10/24 08:47 Dose: 25 mg Multi-Ingredient Ointment (Zinc Oxide 12% Oint 57 Gm Tube) 1 applic TOP PRN PRN PRN Reason: Skin Care Multivitamins/Minerals (Multivitamin W/Minerals Tablet) 1 tab PO DAILYWM [facility] Last Admin: 02/10/24 08:49 Dose: 1 tab Ondansetron HCl (Ondansetron 4 Mg/2 Ml Vial) 4 mg IVP Q6HR PRN PRN Reason: Nausea / Vomiting Polyethylene Glycol (Polyethylene Glycol 3350 17 Gm Packet) 17 gm PO DAILY [facility] Last Admin: 02/10/24 08:50 Dose: Not Given Saccharomyces Boulardii (Saccharomyces Boulardii 250 Mg Capsule) 500 mg PO BIDWM [facility] Last Admin: 02/10/24 08:49 Dose: 500 mg Sodium Chloride (Sodium Chloride Flush 0.9% 10 Ml Syringe) 10 ml IVP PRN PRN PRN Reason: NEEDED PER PROVIDER ORDERS Sodium Chloride (Sodium Chloride Flush 0.9% 10 Ml Syringe) 10 ml IVP 0100,0900,1700 [facility] Last Admin: 02/10/24 08:48 Dose: 10 ml Solifenacin (Solifenacin Succinate 5 Mg Tablet) 5 mg PO DAILY [facility] Last Admin: 02/10/24 08:49 Dose: 5 mg Trazodone HCl (Trazodone 50 Mg Tablet) 50 mg PO HS [facility] Last Admin: 02/09/24 20:44 Dose: 50 mg Levothyroxine [Synthroid] 50 mcg PO QDAC 01/15/23 Metoprolol Tartrate [Lopressor] 25 tab PO BID 01/15/23 oxyBUTYnin chloride [Oxybutynin Chloride] 5 mg PO DAILY 01/15/23 traZODone [Desyrel] 50 mg PO HS 01/15/23 Aspirin [Aspirin EC] 81 mg PO DAILY 06/12/23 Atorvastatin Calcium 40 mg PO DAILY 01/30/24 Gabapentin [Neurontin] 300 mg PO HS 02/07/24 Objective - Vital Signs/Intake & Output Reviewed Vital Signs: Yes Vital Signs: Vital Signs x48h Temp Pulse Resp BP BP Pulse Ox O2 Flow Rate 02/10/24 15:49 37.4 C 66 20 127/69 92 2 02/10/24 12:27 36.4 C L 75 22 125/60 92 2 02/10/24 08:47 153/78 H Intake & Output: Intake & Output 02/07/24 02/08/24 02/09/24 02/10/24 23:59 23:59 23:59 23:59 Intake Total 4943.333 2515 2170 1320 Output Total 859 587 8648 500 Balance 4193.333 1815 1045 820 - Objective General Appearance: positive: No acute distress ( 6 foot 1 inch elderly male, 126.5 kg) Eyes Bilateral: positive: PERRL, EOMI ENT: positive: No signs of dehydration Neck: positive: No JVD. negative: Stiff neck Respiratory: positive: No respiratory distress, Other ( although he has no abnormal lung sounds, overall lung sounds are very quiet). negative: Wheezes, Rales, Rhonchi Cardiovascular: positive: Regular rate & rhythm, Systolic murmur Abdomen: positive: Non-tender, No organomegaly, Nml bowel sounds, No distention Skin: positive: Warm, Dry Extremities: positive: Full ROM, Pedal edema Neurologic/Psychiatric: positive: CN's nml (2-12), Disoriented to place, Disoriented to time. negative: Motor nml ( although he has full range of motion and is able to use his extremities with regards to flexing and extending his legs, using his arms and hands, he does not have the strength to be able to roll over on his own, sit up on his own much less stand on his own) - Lab Results Fish Bones: 02/10/24 04:45 04/23/24 04:45 Other Labs: Lab Results x24hrs 02/10/24 02/10/24 Range/Units 04:45 04:45 WBC 7.2 (4.8-10.8) x10^3/uL RBC 3.42 L (4.70-6.10) 10^6/uL Hgb 11.7 L (14.0-18.0) g/dL Hct 36.0 L (42.0-52.0) % MCV 105.3 H (80.0-94.0) fL MCH 34.2 H (27.0-31.0) pg MCHC 32.5 (32.0-36.0) g/dL RDW 13.1 (12.0-15.0) % Plt Count 96 L (130-450) 10^3/uL MPV 10.6 (7.4-11.4) fL Neut # (Auto) 5.8 (1.5-6.6) 10^3/uL Lymph # (Auto) 0.6 L (1.5-3.5) 10^3/uL [place] # (Auto) 0.6 (0.0-1.0) 10^3/uL Eos # (Auto) 0.1 (0.0-0.7) 10^3/uL Baso # (Auto) 0.0 (0.0-0.1) 10^3/uL Absolute Nucleated RBC 0.00 x10^3/uL Nucleated RBC % 0.0 /100WBC Sodium 137 (135-145) mmol/L Potassium 4.0 (3.5-4.5) mmol/L Chloride 108 (101-111) mmol/L Carbon Dioxide 24 (21-32) mmol/L Anion Gap 5.0 L (6-13) BUN 18 (6-20) mg/dL Creatinine 0.9 (0.6-1.3) mg/dL Estimated GFR (MDRD) 80 L (>89) Glucose 112 H (74-104) mg/dL Calcium 8.9 (8.5-10.3) mg/dL ABX Reporting Has patient been on IV antibiotics over the past 48 hours?: Yes Assessment/Plan - Problem List (1) Streptococcal bacteremia Impression: Blood culture from 02/05 showed gram-positive bacteremia with final results today showing strep dysgalac. 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 The etiology of his bacteremia is felt to be his right lower extremity wound. Repeat blood cultures 02/07 have been negative. +Zosyn on the and . +ceftriaxone was given on the . Skipped 02/06 and given 02/07, 02/08 and today +Azithromycin was given on the , and +Vancomycin has been given daily since the This was discussed with infectious disease at [facility] who recommended continued IV vancomycin and ceftriaxone. Previous hospitalist also discussed the hardware in his foot and his pacemaker. They felt these were stable. They also thought to order a bone scan to look for a possible source within the hardware as well as a transthoracic echo. The transthoracic echo is negative. And although the bone scan was ordered, we do not have nuclear medicine at this facility. This will have to be arranged in the outpatient setting. Abdomen/pelvis CT without any abscess or fluid collection within the abdomen We are holding off on placing a PICC line depending on these blood cultures. Once that has been reliably negative, and I will repeat blood cultures today as mentioned, then I can decide how long I will be giving abx. . The patient was interrogated by [employer] on February 06 and he made some adjustments but we never got a copy of that report. I may offer to the family to treat this patient for 4 weeks of antibiotic the rapy. I have to use daptomycin to cover the streptococcal bacteremia and the MRSA in his wound. But then I would have to run that past pharmacy to see if that is financially feasible to see if that is financially feasible. I will discuss the big picture with the family tomorrow. I do not know if the patient can have a reasonable conversation and remember or understand the pros and cons. If they would like the bone scan and the transesophageal echo I may have to transfer him to [facility] and then bring him back. (2) Pneumonia Chest CT with consolidation of the left lower lobe suggesting infection. 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 He has not had any fever since February 06. Maximum oxygen needed has been 3 L nasal cannula and he is down to 2 L nasal cannula today. He is a max assist x 3. Qualifiers: Pneumonia type: due to unspecified organism Laterality: left Lung location: lower lobe of lung Qualified Code(s): J18.9 - Pneumonia, unspecified organism Assessment/Plan: --Weaning oxygen as tolerated. --Continue Vancomycin and ceftriaxone. Overall, this patient has been on antibiotics for 5 days. (3) Local infection of the skin and subcutaneous tissue, unspecified Assessment/Plan: --CT/XR showing no evidence of osteomyelitis. Bone scan ordered but cannot be done here. --He receives wound care at [facility]. His wound care orders have been placed in the chart. --Continue IV vancomycin and ceftriaxone -- Lower extremity CT with extensive soft tissue edema seen but no abscess or erosions of the bone. Postsurgical changes of the ankle joint. Moderate osteoarthritic changes of the midfoot. Cannot undergo an MRI as he does have a pacemaker. Willl try to obtain a bone scan in the outpatient setting as mentioned above. (4) Afib Assessment/Plan: --Continue metoprolol and aspirin. --Discussed with [employer]. Patient is having dropped QRS on his rhythm. Pace interrogation and adjustment peformed on 02/06. (5) Hypothyroid Assessment/Plan: --Continue levothyroxine. (6) Pacemaker Assessment/Plan: --Pacemaker interrogation performed on 02/06 by [employer] rep. --ID feels it is unlikely that his pacemaker is infected. TTE is pending. Repeat blood cultures have thus far been negative. No need for WILFRIDO at this time. (2) Pneumonia Qualifiers: Qualified Code(s): J18.9 - Pneumonia, unspecified organism
[2024-02-11 05:19] LABS: BASOPHILS % (AUTO) 0.4 %; EOSINOPHILS # (AUTO) 0.2 10^3/uL (0.0-0.7); HCT - HEMATOCRIT 36.4 % (42.0-52.0); HGB - HEMOGLOBIN 11.7 g/dL (14.0-18.0); LYMPHOCYTES # (AUTO) 0.7 10^3/uL (1.5-3.5); LYMPHOCYTES % (AUTO) 12.4 %; MEAN CORPUSCULAR HEMOGLOBIN 33.8 pg (27.0-31.0); MEAN CORPUSCULAR HGB CONC 32.1 g/dL (32.0-36.0); MEAN CORPUSCULAR VOLUME 105.2 fL (80.0-94.0); MEAN PLATELET VOLUME 10.7 fL (7.4-11.4); MONOCYTES # (AUTO) 0.7 10^3/uL (0.0-1.0); MONOCYTES % (AUTO) 12.2 %; NEUTROPHILS # (AUTO) 3.8 10^3/uL (1.5-6.6); NEUTROPHILS % (AUTO) 71.1 %; PLT - PLATELET COUNT 99 10^3/uL (130-450); RED BLOOD COUNT 3.46 10^6/uL (4.70-6.10); RED CELL DISTRIBUTION WIDTH 13.1 % (12.0-15.0); WHITE BLOOD COUNT 5.3 x10^3/uL (4.8-10.8)
[2024-02-11 05:34] LABS: CREATININE 0.7 mg/dL (0.6-1.3); POTASSIUM 3.9 mmol/L (3.5-4.5)
[2024-02-11] MEDS: VANCOMYCIN INJ 1 GM, VANCOMYCIN INJ 500 MG in SODIUM CHLORIDE 0.9% 500 ML IV ONE (09:25)
--- NOTE | 2024-02-11 10:20 | PHARMACY PROGRESS NOTE ---
- Therapy Status Vancomycin regimen day #: 6 Therapy status: Trough subtherapeutic Basis for treatment: Culture result Treatment indication: STREPT BACTEREMIA, MRSA WOUND INFECTION Trough goal: AUC 400-600 Concurrent antibiotics: CTX - SACHIN Risk Risk level for Acute Kidney Injury: High Acute Kidney Injury risk factors: Wt >100kg or BMI >40, Duration >7 days, Goal trough >15 - Monitoring and Recommendation Clinical response to treatment: Lab Results 02/06/24 19:51 BUN 23 H Creatinine 1.2 Estimated GFR (MDRD) 57 L Cultures 02/06/24 20:04 Blood - Right Hand Blood Culture - Preliminary Strep Dysgalac (Strep Equisim) 02/06/24 19:51 Blood Blood Culture - Preliminary Strep Dysgalac (Strep Equisim) 02/06/24 19:51 Blood Blood Culture (PCR) - Final Areas for additional monitoring: IV to PO when appropriate, Therapy de- escalation based on culture results, Acute Kidney Injury Pharmacy recommendation: Increase dose (INCREASE DOSE TO 1GM Q12H TO TARGET AUC ~420. RENAL FX STABLE. I/O REV'D. WBC WNL.)
--- NOTE | 2024-02-11 18:27 | Discharge Plan ---
Discharge Plan Problem Reviewed?: Yes Disposition: 02 Transfer Acute Care Hosp Condition: Poor Diet: Diabetic No Smoking: If you smoke, Please STOP! Call for help.
--- NOTE | 2024-02-11 18:29 | DISCHARGE SUMMARY ---
"Discharge Summary Admit Date: 02/06/24 Discharge Date: 02/11/24 Discharging Provider: Nena Pittman MD Primary Care Provider: Reji Jacobs MD Code Status: Attempt Resuscitation Condition at Discharge: Poor Discharge Disposition: 02 Transfer Acute Care Hosp - DIAGNOSES Discharge Diagnoses with Status of Each Condition: 1. Streptococcal bacteremia 2. Left lower lobe pneumonia 3. Local skin infection of skin and subcutaneous tissue of leg 4. Chronic atrial fibrillation 5. Hypothyroid 6. Pacemaker 7. Cognitive deficits - HPI History of Present Illness: 89 y old male with PMH HTN, hyperlipidemia, hypothyroidism, A fib, DVT, hypothyroidism came to ER with c/o weakness for 1 day. Pt also c/o cough, shortness of breath. Denies fever, chest pain, nausea, vomiting, diarrhea, constipation, symptoms On presentation, pt was hypotensive and hypoxic Labs showed leukukocytosis CXR showed LLL opacity Pt also has right fot wound with erythema In ER, pt was received IVF, ceftriaxone, vanco and zithromax Pt is admitted due to Acute hypoxic resp failure due to pneumonia, cellulitis of right foot - Past Medical History Cardiovascular: reports: Congestive heart failure, Hypertension, High cholesterol, Peripheral Vascular Disease, Deep vein thrombosis, Atrial fibr illation Respiratory: reports: Pneumonia Neuro: reports: TIA, Peripheral neuropathy Endocrine/Autoimmune: reports: HyPOthyroidism GI: reports: C.difficile, Diverticulitis : reports: Benign prostate hypertrophy, Retention, Nocturia, Frequency, Other Musculoskeletal: reports: Osteoarthritis Derm: reports: Other MRSA Hx?: No - Past Surgical History General: reports: Appendectomy, Bowel surgery Ortho: reports: Knee replacement Cardiovascular: reports: Pacemaker HEENT: reports: Tonsil/Adenoidectomy - CONSULTS | PROCEDURES Procedures: Chest x-ray showed long lung volumes, mild bibasilar opacities that could be atelectasis or early pneumonia Lower extremity CT head extensive soft tissue edema without calcaneal erosion identified. Postsurgical changes in the ankle joint. Moderate osteoarthritic changes in the midfoot. Chest CT with consolidation of the left lower lobe suggesting infection. Consolidation and traction bronchiectasis in the right lower lobe with fibrosis resulting in nearly complete volume loss Abdomen pelvis CT with out any masses in the liver, spleen, pancreas or adrenals. Stomach bowel and peritoneum were without pathologic findings. The bladder was without wall thickening. There is no pelvic adenopathy. The bones do not have any aggressive osseous abnormalities. He did have a right hip replacement. Blood cultures from February 05 with strep that is Gallick Wound cultures from March 08 grew out beta-hemolytic strep group C and methicillin-resistant staph Repeat blood cultures on February 07 without gross Respiratory culture February 08 growing yeast Echocardiogram with normal LV size and mildly reduced systolic function at 40 to 45%. Normal RV size and systolic function. Mild tricuspid regurgitation. Left atrium mildly dilated. Aortic valve is mildly calcified. No aortic stenosis or vegetations. Mitral valve had thickening but no mitral abnormalities or severe regurgitation. Trace to mild tricuspid regurgitation with mildly abnormal right heart pressures and RVSP was 47. Pulmonic valve appeared structurally normal. - HOSPITAL COURSE Hospital Course: He was placed on empiric antibiotic therapy. He ended up on vancomycin because of MRSA in the wound. And Rocephin for the strep dysgalac. He initially responded with less redness and heat in his legs, especilly the right. But we were worried about hardware infection from previous surgery in his Right ankle. we wanted to do a nuclear medicine study for the hardware but we do not have nu clear medicine here. We repeated the blood cultures and they were negative. We also were worried about endocarditis in spite of a transthoracic echo here being negative for that and we felt he would likely need a transesophageal echo. Patient has some cognitive deficits during his stay. He gets intermittently confused. On the day of discharge, his cellulitis worsened in spite of being stable for several days. Redness and heat had been receding in the ankle to the calf. It was receding but went beyond the calf up above the knee and into the groin and skin of his thigh over a few hours . He also spiked a temperature. Delirium resulted because of the temperature and baseline cognitive deficits. But he was hemodynamically stable. Because we needed to do more studies, I presented the case to [place]. Dr. Coombs did feel the patient would be an appropriate transfer to a higher level of care. I then spoke to the hospitalist on staff and the hospitalist accepted the patient in transfer. Temp spike to 38.2 and he was 37.9 at transfer once I gave him Tylenol. Heart rate was 85. Blood pressure 134/72. Respiration had been 20 in the afternoon and it climbed to 28 with the fever. O2 was 2 L during the day and up to 4 L at transfer saturating at 94%. But delirious due to fever. Obese elderly gentleman who is 6 foot 1 inches tall, 126.5 kg. Neck was supple. No JVD. Lungs had coarse upper airway sounds, right midlung rhonchi. Bases had diminished breath sounds. No use of accessory muscles. Intermittently tachycardic. We did have [employer] rep check his pacer while he was here and it was functioning normally. Abdomen was obese, soft, hypoactive his bowel sounds and no masses. Extremities had trace edema. While there were no focal deficits, and he was disoriented, he is with generalized weakness. Unable to sit up on his own or stand on his own due to illness.He tells us that he is usually an ambulatory person. Uses some durable medical equipment at home but still able to dress himself and feed himself. Greater than 30-minute spent coordinating discharge this document was made in part using voice recognition software. While efforts are made to proofread this document, sound alike and grammatical errors may occur. - ALLERGIES Allergies/Adverse Reactions: Allergies Allergy/AdvReac Type Severity Reaction Status Date / Time No Known Drug Allergies Allergy Verified 02/06/24 19:39 - MEDICATIONS Home Medications: Ambulatory Orders Medication Instructions Recorded Confirmed Levothyroxine [Synthroid] 50 mcg PO QDAC 01/15/23 02/07/24 Metoprolol Tartrate [Lopressor] 25 tab PO BID 01/15/23 02/07/24 oxyBUTYnin chloride [Oxybutynin 5 mg PO DAILY 01/15/23 02/07/24 Chloride] traZODone [Desyrel] 50 mg PO HS 01/15/23 02/06/24 Aspirin [Aspirin EC] 81 mg PO DAILY 06/12/23 02/06/24 Atorvastatin Calcium 40 mg PO DAILY 01/30/24 02/06/24 Lidocaine Patch 5% [Lidoderm Patch] 1 patch TOP DAILY PRN #10 patch 01/30/24 02/06/24 Meloxicam [Mobic] 7.5 mg PO BID 10 Days #20 tablet 01/30/24 02/06/24 Gabapentin [Neurontin] 300 mg PO HS 02/07/24 02/07/24 - LABS Result Diagrams: 02/11/24 04:51 02/11/24 04:51"
[2024-02-11] MEDS ORDERED: AMPICILLIN/SULBACTAM 3 GM in SODIUM CHLORIDE 0.9% MINIBAG 100 ML IV STA (19:05)
[2024-02-11 19:13] VITALS: BP 134/72; O2SAT 94
[2024-02-11] MEDS: IBUPROFEN 400 MG TABLET PO ONE (19:15)
[2024-02-11] MEDS ORDERED: VANCOMYCIN INJ 1 GM in SODIUM CHLORIDE 0.9% 250 ML IV SCH (21:00)
== END 2024-02-11 19:35 | disposition short-term general hospital (02) | DRG 193 ==
LOC: EDUNIT# → ED 19:18 → MS2 22:02
PROVIDERS: ADMIT Internal Medicine; ATTEND Specialist
DX: J18.9 Pneumonia, unspecified organism (principal); R09.02 Hypoxemia; S91.301A Unspecified open wound, right foot, initial encounter; J96.01 Acute respiratory failure with hypoxia; I48.20 Chronic atrial fibrillation, unspecified; R78.81 Bacteremia; Z20.818 Contact with and (suspected) exposure to other bacterial communicable diseases; Z20.822 Contact with and (suspected) exposure to COVID-19; Z20.828 Contact with and (suspected) exposure to other viral communicable diseases; L03.115 Cellulitis of right lower limb; E03.9 Hypothyroidism, unspecified; R41.89 Other symptoms and signs involving cognitive functions and awareness; D72.829 Elevated white blood cell count, unspecified; I11.0 Hypertensive heart disease with heart failure; I50.9 Heart failure, unspecified; E78.00 Pure hypercholesterolemia, unspecified; I73.9 Peripheral vascular disease, unspecified; N40.1 Benign prostatic hyperplasia with lower urinary tract symptoms; R33.8 Other retention of urine; R35.0 Frequency of micturition; R35.1 Nocturia; M19.90 Unspecified osteoarthritis, unspecified site; Z79.82 Long term (current) use of aspirin; Z79.890 Hormone replacement therapy; Z79.899 Other long term (current) drug therapy; Z86.718 Personal history of other venous thrombosis and embolism; Z86.73 Personal history of transient ischemic attack (TIA), and cerebral infarction without residual deficits; Z95.0 Presence of cardiac pacemaker
CPT/HCPCS: 36415; 71045; 71260; 73620; 73700; 74177; 80048; 80053; 80202; 81003; 82607; 83605; 83690; 83880; 85025; 85610; 85730; 87040; 87070; 87077; 87154; 87181; 87205; 87633; 93307; 94640; 96374; 97110; 97162; 97166; 97530; 99285; A9270; J3370; P9612; Q9967; 51701; 81001; 81599; 87086

== ENCOUNTER 2024-06-10 12:28 | Outpatient (CLI) | payer MEDICARE, OTHER ==
--- NOTE | 2024-06-10 20:56 | XRAY Report ---
PROCEDURE: Wrist 3+V RT INDICATIONS: R WRIST PAIN TECHNIQUE: 3 views of the wrist were acquired. COMPARISON: Right wrist radiographs 07/02/2022. FINDINGS: Bones: No acute fractures or dislocations. No suspicious bony lesions. Mild widening of the scaphol unate interval is suspicious for underlying ligament injury. Severe joint space narrowing is seen at the radioscaphoid articulation. Moderate 1st carpometacarpal and triscaphe degenerative changes. Nons pecific subchondral lucency surrounding the wrist may be related to degenerative subchondral cystic c hanges or chronic osseous erosions. Soft tissues: Mild chondrocalcinosis. Vascular calcifications are present. No focal nodular soft tis ronen swelling. IMPRESSION: 1.Widening of the scapholunate interval again seen consistent with underlying scapholunate ligament t earing. No significant proximal migration of the capitate. 2.Multifocal osteoarthrosis, severe at the radiocarpal articulation. Scattered juxta-articular lucenc ies may represent subchondral cystic changes versus chronic osseous erosions. 3.Chondrocalcinosis. Differential diagnosis includes but is not limited to CPPD, hyperparathyroidism , and hemochromatosis. Reviewed by: Aldair Kaufman MD on 06/10/2024 8:55 PM PDT Approved by: Aldair Kaufman MD on 06/10/2024 8:55 PM PDT Station ID: [id number]
== END 2024-06-10 12:29 | disposition home or self-care (01) ==
LOC: DI 12:28
PROVIDERS: ATTEND Family Medicine
DX: M19.031 Primary osteoarthritis, right wrist (principal); M11.231 Other chondrocalcinosis, right wrist

== ENCOUNTER 2024-07-01 09:36 | Emergency (ER) | payer MEDICARE, OTHER ==
--- NOTE | 2024-07-01 11:10 | ED Physician Documentation ---
History of Present Illness - Stated complaint Stated Complaint: LT FOOT SWOLLEN - Chief complaint Chief Complaint: Ext Problem - Additonal information Additional information: Patient is an 88-year-old male with past medical history of CHF biventricular pacemaker in place, history of chronic leg wounds to bilateral legs history of amputation of left hallux. He presents to the emergency department with worsening swelling to left leg. He notes symptoms have been going on for the past few days. reports he recently returned from long-term living facility after being diagnosed here in January with pneumonia, bacteremia, chronic leg wo unds.Patient denies any fevers or chills he is able to bear weight on it. He denies any recent trauma to the area. Patient is eating and drinking well PD PAST MEDICAL HISTORY - Past Medical History Past Medical History: Yes Cardiovascular: Congestive heart failure, Hypertension, High cholesterol, Peripheral Vascular Disease, Deep vein thrombosis, Atrial fibrillation Respiratory: Pneumonia Neuro: TIA, Peripheral neuropathy Endocrine/Autoimmune: HyPOthyroidism GI: C.difficile, Diverticulitis : Benign prostate hypertrophy, Retention, Nocturia, Frequency, Other Musculoskeletal: Osteoarthritis Derm: Other - Past Surgical History Past Surgical History: Yes General: Appendectomy, Bowel surgery Ortho: Knee replacement Cardiovascular: Pacemaker HEENT: Tonsil/Adenoidectomy - Present Medications Home Medications: Ambulatory Orders Medication Instructions Recorded Confirmed Metoprolol Tartrate [Lopressor] 25 tab PO DAILY 01/15/23 07/01/24 oxyBUTYnin chloride [Oxybutynin 5 mg PO DAILY 01/15/23 07/01/24 Chloride] traZODone [Desyrel] 50 mg PO HS 01/15/23 07/01/24 Aspirin [Aspirin EC] 81 mg PO DAILY 06/12/23 07/01/24 Atorvastatin Calcium 40 mg PO HS 01/30/24 07/01/24 Apixaban [Eliquis] 5 mg ORAL DAILY 07/01/24 07/01/24 Gabapentin [Neurontin] 300 mg PO HS 07/01/24 07/01/24 Levothyroxine [Synthroid] 25 mcg PO QDAC 07/01/24 07/01/24 - Allergies Allergies/Adverse Reactions: Allergies Allergy/AdvReac Type Severity Reaction Status Date / Time No Known Drug Allergies Allergy Verified 07/01/24 09:53 - Social History Does the pt smoke?: No Smoking Status: Former smoker Does the pt drink ETOH?: No Does the pt have substance abuse?: No - Immunizations Immunizations are current?: Yes - POLST Patient has POLST: No PD ED PE NORMAL - Vitals Vital signs reviewed: Yes - General General: Alert and oriented X 3 - HEENT HEENT: Atraumatic - Neck Neck: Supple, no meningeal sign, No JVD - Cardiac Cardiac: RRR, No murmur, No gallop, No rub - Respiratory Respiratory: No respiratory distress, Clear bilaterally - Abdomen Abdomen: Normal bowel sounds, Non tender - Derm Derm: Normal color, Other (Erythema appreciated to left lower leg with warmth to touch on examination.) - Extremities Extremities: Other (Swelling appreciated left compared to right on examination there appears to be no significant ulcers or wounds on examination of the leg there does appear to be small abrasion to third digit of distal phalanx and previous amputation to hallux of left leg no discharge. Pulses intact distally. ) - Neuro Neuro: Alert and oriented X 3 Eye Opening: Spontaneous Motor: Obeys Commands Verbal: Oriented GCS Score: 15 Results - Vitals Vitals: Vital Signs - 24 hr 07/01/24 07/01/24 07/01/24 09:54 10:12 19:08 Temperature 36.4 C L 36.8 C Heart Rate 65 78 72 Respiratory 18 16 16 Rate Blood Pressure 113/53 L 129/62 125/67 O2 Saturation 92 93 95 07/01/24 20:09 Temperature Heart Rate 67 Respiratory 14 Rate Blood Pressure 113/91 H O2 Saturation 95 Oxygen O2 Source [] Oxymizer O2 Source [] Oxymizer O2 Source Room air - Labs Labs: Laboratory Tests 07/01/24 07/01/24 07/01/24 11:48 11:48 11:48 WBC 7.3 RBC 3.63 L Hgb 12.1 L Hct 37.4 L MCV 103.0 H MCH 33.3 H MCHC 32.4 RDW 13.8 Plt Count 131 MPV 9.4 Neut # (Auto) 5.8 Lymph # (Auto) 0.6 L Bertie # (Auto) 0.7 Eos # (Auto) 0.1 Baso # (Auto) 0.0 Absolute Nucleated RBC 0.00 Nucleated RBC % 0.0 PT 15.6 H INR 1.5 H Sodium 137 Potassium 4.1 Chloride 107 Carbon Dioxide 25 Anion Gap 5.0 L BUN 22 H Creatinine 0.9 Estimated GFR (MDRD) 80 L Glucose 95 Calcium 9.1 Magnesium 1.7 Total Bilirubin 0.8 AST 12 ALT 6 L Alkaline Phosphatase 66 Total Protein 6.3 L Albumin 3.3 Globulin 3.0 Albumin/Globulin Ratio 1.1 - Rads (name of study) x-ray left foot Relevant Findings:: EMP independent interpretation of test PD Medical Decision Making - ED course Complexity details: reviewed old records, reviewed results ED course: Patient is a 88 yo M who presents to the ED Left leg swelling symptoms have been going on for the past few days. Patient recently was discharged from the hospital after multiple month long stay secondary to pneumonia bacteremia and history of chronic foot wounds. Patient's chronic foot wounds are being treated by wound care on his right leg but now he is having swelling to his left leg. He denies any fevers or chills with the symptoms. Vitals are stable here in emergency department he is afebrile nontachycardic. Swelling to left leg noticeable with warmth to touch pulses intact distally. 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 No significant discharge or wound to left leg. Labs here in the emergency department showed no significant leukocytosis hemog lobin is stable. CMP shows no significant SACHIN or electrolyte abnormality. There appears to be no signs of DVT on ultrasound. X-ray was obtained of left foot showing Remote distal phalanx amputation of the great toe with question of possible osteomyelitis of the distal aspect of the proximal phalanx of the great toe. Recommend correlation for associated supportive findings. Additionally, there is cellulitic changes. ESR and CRP added on for trending labs and discussed case with podiatry at [facility] as they have a bed available. Dr. Parisi is willing to see patient if he is able to be transferred over here. [facility] did give away their last bed and we are unable to transfer patient to [facility] at this time. Will plan on discussing with [place] as they have a bed available. I was able to obtain consent from patient's mother and daughter for transfer to [place] [facility] for treatment pending bed at this time. Patient received ceftriaxone here in emergency department there was delay in starting vancomycin as it was incorrectly ordered. Pharmacy to dose vacomycin here in the ED. Labs ordered for morning repeat and patient will receive another dose of c eftriaxone here in the emergency department sabra will receive 3 times daily until he is able to be transferred. Serg held overnight as hopefully he will be transferred in the morning for surgery. Still pending hospitalist response from [facility] as well as have not been able to speak to podiatry at this time. Departure - Departure Disposition: 02 Transfer Acute Care Hosp Clinical Impression: Osteomyelitis of great toe of left foot, Left leg swelling, Erythema Condition: Fair Forms: PCP List
[2024-07-01 12:01] LABS: BASOPHILS % (AUTO) 0.1 %; EOSINOPHILS # (AUTO) 0.1 10^3/uL (0.0-0.7); EOSINOPHILS % (AUTO) 1.9 %; HCT - HEMATOCRIT 37.4 % (42.0-52.0); HGB - HEMOGLOBIN 12.1 g/dL (14.0-18.0); LYMPHOCYTES # (AUTO) 0.6 10^3/uL (1.5-3.5); LYMPHOCYTES % (AUTO) 8.7 %; MEAN CORPUSCULAR HEMOGLOBIN 33.3 pg (27.0-31.0); MEAN CORPUSCULAR HGB CONC 32.4 g/dL (32.0-36.0); MEAN PLATELET VOLUME 9.4 fL (7.4-11.4); MONOCYTES # (AUTO) 0.7 10^3/uL (0.0-1.0); MONOCYTES % (AUTO) 9.3 %; NEUTROPHILS # (AUTO) 5.8 10^3/uL (1.5-6.6); NEUTROPHILS % (AUTO) 79.7 %; PLT - PLATELET COUNT 131 10^3/uL (130-450); RED BLOOD COUNT 3.63 10^6/uL (4.70-6.10); RED CELL DISTRIBUTION WIDTH 13.8 % (12.0-15.0); WHITE BLOOD COUNT 7.3 x10^3/uL (4.8-10.8)
[2024-07-01 12:03] LABS: INR 1.5 (0.8-1.2); PT - PROTHROMBIN TIME 15.6 secs (9.9-12.6)
[2024-07-01 12:11] LABS: ALBUMIN 3.3 g/dL (3.2-5.5); ALBUMIN/GLOBULIN RATIO 1.1 (1.0-2.2); BILIRUBIN,TOTAL 0.8 mg/dL (0.2-1.0); CALCIUM 9.1 mg/dL (8.5-10.3); CREATININE 0.9 mg/dL (0.6-1.3); MAGNESIUM 1.7 mg/dL (1.7-2.3); POTASSIUM 4.1 mmol/L (3.5-4.5); TOTAL PROTEIN 6.3 g/dL (6.4-8.9)
--- NOTE | 2024-07-01 12:21 | XRAY Report ---
PROCEDURE: Foot 3+V LT INDICATIONS: pain and swelling TECHNIQUE: 3 views of the foot were acquired. COMPARISON: None. FINDINGS: Bones: No fractures or dislocations. Remote partial great toe amputation at the IP joint. There is f ocal cortical loss at the tip of the proximal phalanx of the great toe. Soft tissues: No tibiotalar joint effusion. Achilles tendon appears normal. Extensive small vessel calcifications typically indicate long-standing diabetes. Dorsal foot edema suggesting cellulitic ch valerie. No soft tissue gas or radiopaque foreign body. IMPRESSION: Remote distal phalanx amputation of the great toe with question of possible osteomyelitis of the dist al aspect of the proximal phalanx of the great toe. Recommend correlation for associated supportive f indings. Additionally, there is cellulitic change. Reviewed by: Bryce Bella MD on 07/01/2024 12:20 PM PDT Approved by: Bryce Bella MD on 07/01/2024 12:20 PM PDT Station ID: [id number]
--- NOTE | 2024-07-01 13:50 | Ultrasound Report ---
PROCEDURE: Duplex Venous Limited INDICATIONS: left leg swelling TECHNIQUE: Real-time imaging, as well as color and pulse Doppler interrogation, were performed of the lower extr emity deep veins from the inguinal ligament to the popliteal fossa. Attempted visualization of the ca lf veins was performed. COMPARISON: None. FINDINGS: The deep veins are normally compressible, and free of intraluminal thrombus. Color and pu lse Doppler demonstrate normal phasic intraluminal flow. There is normal augmentation response to di stal compression maneuver. IMPRESSION: No deep venous thrombosis of the visualized lower extremity. Agree with preliminary interpretation provided to the ordering provider by the ultrasound technologis tWatson Reviewed by: Constantine Reed MD on 07/01/2024 1:48 PM PDT Approved by: Constantine Reed MD on 07/01/2024 1:48 PM PDT Station ID: [id number]
[2024-07-01] MEDS: cefTRIAXone 2 GM in SODIUM CHLORIDE 0.9% MINIBAG 100 ML IV STA (15:41)
[2024-07-01] MEDS ORDERED: VANCOMYCIN 1 GM VIAL ONE (19:12)
[2024-07-01] MEDS: VANCOMYCIN INJ 2 GM, VANCOMYCIN INJ 500 MG in SODIUM CHLORIDE 0.9% 500 ML IV ONE (19:21)
[2024-07-01] MEDS ORDERED: ONDANSETRON 4 MG/2 ML VIAL IVP PRN (20:28)
[2024-07-01] MEDS: GABAPENTIN 100 MG CAPSULE PO STA (20:49)
[2024-07-01] MEDS: traZODone 50 MG TABLET PO STA (20:49)
[2024-07-01] MEDS: ATORVASTATIN 40 MG TABLET PO STA (20:49)
[2024-07-01] MEDS: ACETAMINOPHEN 500 MG TABLET PO PRN (20:56)
[2024-07-01] MEDS: cefTRIAXone 2 GM in SODIUM CHLORIDE 0.9% MINIBAG 100 ML IV SCH (21:35)
--- NOTE | 2024-07-01 21:37 | ED Physician Documentation ---
ED Addendum - Addendum Addendum: 07/01/24 21:[address] Simmons to [facility] at this time after direct Doc to Doc discussion from me. Disposition: Transferred to higher level care Condition: Stable
[2024-07-01] MEDS ORDERED: cefTRIAXone 2 GM in SODIUM CHLORIDE 0.9% MINIBAG 100 ML IV SCH (22:00)
[2024-07-02 02:14] VITALS: BP 125/67; O2SAT 95
[2024-07-02] MEDS ORDERED: PANTOPRAZOLE 40 MG TABLET PO SCH (07:00)
[2024-07-02] MEDS ORDERED: LEVOTHYROXINE 25 MCG TABLET PO SCH (07:00)
[2024-07-02] MEDS ORDERED: VANCOMYCIN INJ 1 GM in SODIUM CHLORIDE 0.9% 250 ML IV SCH (08:00)
== END 2024-07-02 02:00 | disposition short-term general hospital (02) ==
LOC: ED 09:36
DX: M86.8X7 Other osteomyelitis, ankle and foot (principal); M79.89 Other specified soft tissue disorders; I11.0 Hypertensive heart disease with heart failure; I50.9 Heart failure, unspecified; Z95.0 Presence of cardiac pacemaker; E78.00 Pure hypercholesterolemia, unspecified; E03.9 Hypothyroidism, unspecified; I48.91 Unspecified atrial fibrillation; Z86.718 Personal history of other venous thrombosis and embolism; Z79.01 Long term (current) use of anticoagulants; Z86.73 Personal history of transient ischemic attack (TIA), and cerebral infarction without residual deficits; N40.0 Benign prostatic hyperplasia without lower urinary tract symptoms; Z79.82 Long term (current) use of aspirin; Z79.899 Other long term (current) drug therapy; Z89.412 Acquired absence of left great toe
CPT/HCPCS: 36415; 73630; 80053; 83735; 85025; 85610; 85651; 86140; 87040; 87154; 87181; 93971; 96365; 96366; 96367; 99285; A9270; J3370; 80048